=== PATIENT | female | born 1975 | race Caucasian/White ===

== ENCOUNTER 2021-01-17 22:28 | Inpatient (IN) | payer OTHER, MEDICARE, MEDICAID ==
[~2021-01-17] VITALS: Ht 154.9 cm; Wt 97.6 kg
[~2021-01-17 22:28] MED LIST: AMPI3VIA IJ; ASPI81TA50 PO; ATOR10TA60 PO; BACL20TA PO; BISAC-EVAC RC; CALC300T5 PO; DOXE50CA PO; ENOX40DI SQ; ERGO500027 PO; FAMO20TA5 PO; FERR325T14 PO; FLUT1DIS3 IH; FOLI1TAB16 PO; GABA600T7 PO; LEVO75TA5 PO; OXCA300T19 PO; OXYCHLOROSENE; QUET200T4 PO; SENN-87 PO; TERA2CAP3 PO; THIA100V3 IJ; TRAZ-118 PO; ZINC220C4 PO
[2021-01-18] VITALS (11 sets, daily range): BP systolic 93–174; BP diastolic 46–97
--- NOTE | 2021-01-18 00:27 | RAD ---
XR CHEST 1V Clinical History: Reason: altered mental status / Spl. Instructions: / History: Technique: AP view of the chest was obtained at 01/18/2021 12:05 AM. Comparison: None. Findings: The cardiomediastinal silhouette is normal. The pulmonary vasculature is normal. The lungs and pleura l margins are clear. There is right-sided Port-A-Cath is still directed downward in the mid to low SV C. Impression: No evidence of an acute cardiopulmonary process. Electronically signed by: Gee Jimenez III, MD (01/18/2021 12:24 AM) [facility]
[2021-01-18 00:34] LABS: BASO # 0.1 x10^3/uL (0.0-0.2); BASO % 1 % (0-3); BILIRUBIN,URINE NEGATIVE (NEG); CLARITY,URINE CLEAR; COLOR,URINE YELLOW; EOS # 0.2 x10^3/uL (0.0-0.7); EOS % 3 % (0-3); HEMATOCRIT 32.2 % (36.0-47.0); HEMOGLOBIN 10.7 g/dL (12.0-15.5); LYMPH # 2.1 x10^3/uL (1.0-4.8); LYMPH % 24 % (24-48); MEAN CORPUSCULAR HEMOGLOBIN 30 pg (25-35); MEAN CORPUSCULAR HGB CONC 33 g/dL (31-37); MEAN CORPUSCULAR VOLUME 91 fL (79-100); MONO # 0.7 x10^3/uL (0.0-1.1); MONO % 8 % (0-9); NEUT # 5.6 x10^3/uL (1.8-7.7); NEUT % 65 % (31-73); NITRITE,URINE POSITIVE (NEG); PLATELET COUNT 326 x10^3/uL (140-400); PROTEIN,URINE NEGATIVE (NEG-TRACE); RED BLOOD COUNT 3.53 x10^6/uL (3.50-5.40); RED CELL DISTRIBUTION WIDTH 14.3 % (11.5-14.5); UROBILINOGEN,URINE 0.2 mg/dL (0.2 mg/dL); WHITE BLOOD COUNT 8.7 x10^3/uL (4.0-11.0)
[2021-01-18 00:46] LABS: BACTERIA,URINE MANY /HPF (0-FEW)
[2021-01-18 00:50] LABS: CALCIUM 8.7 mg/dL (8.5-10.1); CREATININE 0.6 mg/dL (0.6-1.0); GFR 107.6
[2021-01-18 01:03] LABS: ALBUMIN 3.9 g/dL (3.4-5.0); ALBUMIN/GLOBULIN RATIO 1.3 (1.0-1.7); TOTAL BILIRUBIN 0.3 mg/dL (0.2-1.0)
[2021-01-18] MEDS ORDERED: cefTRIAXone IV Push 1 GM VIAL. IVP ONE (02:00)
[2021-01-18] MEDS ORDERED: ONDANSETRON PF 4 MG/2 ML VIAL. IV PRN (02:15)
--- NOTE | 2021-01-18 03:00 | NUR ---
Received patient from ER per cart to room 203. Admitting diagnosis: AMS and UTI. Patient is a resident at [facility] in [place], [place]. Nursing staff had stated that patient had become confused and was brought to [facility] for assessment and treatment. Patient usually goes to but they were not taking any new patient tonight. Patient is alert but slow to respond. Patient was positive for an UTI. Patient has a cobb catheter in place. Patient has a portacath in her right chest. Patient also has a colostomy in right lower abdomen. Patient has dry scabs on her right great toe and 2 small ulcers on her right buttock. Patient is in no acute distress at this time. Will continue to monitor.
--- NOTE | 2021-01-18 03:43 | PHYS DOC ---
Past Medical History Past Medical History: Anxiety, Asthma, Bipolar, GERD Additional Past Medical Histor: BLADDER DISFUNCTION, LAC OF LIVER, CELLULITIS, PTSD, PARAPLEGIA, Past Surgical History: Other Smoking Status: Never Smoker Alcohol Use: None General Adult EDM: Chief Complaint: ALTERED MENTAL STATUS HPI: HPI: Patient is a 45 year old female brought in by EMS for evaluation due to altered mental status. Per EMS-- patient slow to respond to questions, confusion, and odd behavior. On exam patient vital signs stable. She is alert and knows her name-- she is unable to provide me with her medical history. She is slow to respond to questions and repeats herself. She arrived with IV antibiotic running and she states she is being treated for cellulitis of her right foot. No focal weakness observed. Review of Systems: Review of Systems: limited due to altered mental status Heart Score: C/O Chest Pain: N/A Risk Factors: Risk Factors: DM, Current or recent (<one month) smoker, HTN, HLP, family his tory of CAD, obesity. Risk Scores: Score 0 - 3: 2.5% MACE over next 6 weeks - Discharge Home Score 4 - 6: 20.3% MACE over next 6 weeks - Admit for Clinical Observation Score 7 - 10: 72.7% MACE over next 6 weeks - Early Invasive Strategies Current Medications: Current Medications Medications (Trade) Dose Ordered Sig/Memo Start Time Stop Time Status Last Admin Dose Admin Ceftriaxone Sodium (Rocephin) 1 gm 1X ONCE 01/18/21 02:00 01/18/21 02:01 DC 01/18/21 02:05 1 GM Ondansetron HCl (Zofran) 4 mg PRN Q8HRS PRN 01/18/21 02:15 01/19/21 02:14 Allergies: Allergies: Allergies Coded Allergies Type Severity Reaction Last Updated Verified [id number] Antimigraine Agents Allergy Intermediate 01/18/21 Yes doxycycline Allergy Intermediate Itching 01/18/21 Yes eletriptan Allergy Intermediate Itching 01/18/21 Yes hydromorphone Allergy Intermediate 01/18/21 Yes meperidine Allergy Intermediate Itching 01/18/21 Yes morphine Allergy Intermediate 01/18/21 Yes nalbuphine Allergy Intermediate Itching 01/18/21 Yes rizatriptan Allergy Intermediate 01/18/21 Yes tramadol Allergy Intermediate 01/18/21 Yes Physical Exam: PE: General: alert, no acute distress. Skin: warm, dry and intact. Head:: Normocephalic, atraumatic. Neck: Trachea midline. Eyes: EOMI, Normal conjunctiva, No drainage CARDIOVASCULAR: Regular rate and rhythm RESPIRATORY: No respiratory distress Back: Full range of motion. MUSCULOSKELETAL: Full range of motion of bilateral upper and lower extremities. GASTROINTESTINAL: Abdomen soft without rebound or guarding. NEUROLOGICAL: Alert. No neurological deficits observed, no slurred speech, slow speech, repetitive speech Psychiatric: Cooperative. Normal judgment Current Patient Data: Labs: Laboratory Tests Test 01/18/21 00:10 White Blood Count 8.7 x10^3/uL (4.0-11.0) Red Blood Count 3.53 x10^6/uL (3.50-5.40) Hemoglobin 10.7 g/dL (12.0-15.5) L Hematocrit 32.2 % (36.0-47.0) L Mean Corpuscular Volume 91 fL (79-100) Mean Corpuscular Hemoglobin 30 pg (25-35) Mean Corpuscular Hemoglobin Concent 33 g/dL (31-37) Red Cell Distribution Width 14.3 % (11.5-14.5) Platelet Count 326 x10^3/uL (140-400) Neutrophils (%) (Auto) 65 % (31-73) Lymphocytes (%) (Auto) 24 % (24-48) Monocytes (%) (Auto) 8 % (0-9) Eosinophils (%) (Auto) 3 % (0-3) Basophils (%) (Auto) 1 % (0-3) Neutrophils # (Auto) 5.6 x10^3/uL (1.8-7.7) Lymphocytes # (Auto) 2.1 x10^3/uL (1.0-4.8) Monocytes # (Auto) 0.7 x10^3/uL (0.0-1.1) Eosinophils # (Auto) 0.2 x10^3/uL (0.0-0.7) Basophils # (Auto) 0.1 x10^3/uL (0.0-0.2) Urine Collection Type Unknown Urine Color Yellow Urine Clarity Clear Urine pH 7.0 (<5.0-8.0) Urine Specific [place] 1.010 (1.000-1.030) Urine Protein Negative mg/dL (NEG-TRACE) Urine Glucose (UA) Negative mg/dL (NEG) Urine Ketones (Stick) Negative mg/dL (NEG) Urine Blood Trace (NEG) Urine Nitrite Positive (NEG) Urine Bilirubin Negative (NEG) Urine Urobilinogen Dipstick 0.2 mg/dL (0.2 mg/dL) Urine Leukocyte Esterase Small (NEG) Urine RBC 1-2 /HPF (0-2) Urine WBC 5-10 /HPF (0-4) Urine Squamous Epithelial Cells Few /LPF Urine Bacteria Many /HPF (0-FEW) Urine Mucus Slight /LPF Sodium Level 137 mmol/L (136-145) Potassium Level 4.0 mmol/L (3.5-5.1) Chloride Level 102 mmol/L (98-107) Carbon Dioxide Level 24 mmol/L (21-32) Anion Gap 11 (6-14) Blood Urea Nitrogen 12 mg/dL (7-20) Creatinine 0.6 mg/dL (0.6-1.0) Estimated GFR (Cockcroft-Gault) 107.6 BUN/Creatinine Ratio 20 (6-20) Glucose Level 97 mg/dL (70-99) Lactic Acid Level 0.7 mmol/L (0.4-2.0) Calcium Level 8.7 mg/dL (8.5-10.1) Total Bilirubin 0.3 mg/dL (0.2-1.0) Aspartate Amino Transferase (AST) 24 U/L (15-37) Alanine Aminotransferase (ALT) 27 U/L (14-59) Alkaline Phosphatase 381 U/L (46-116) H Total Protein 7.0 g/dL (6.4-8.2) Albumin 3.9 g/dL (3.4-5.0) Albumin/Globulin Ratio 1.3 (1.0-1.7) Laboratory Tests 01/18/21 00:10 Laboratory Tests 01/18/21 00:10 Vital Signs: Vital Signs Date Time Temp Pulse Resp B/P (MAP) Pulse Ox O2 Delivery O2 Flow Rate FiO2 01/18/21 02:21 68 18 111/55 (73) 94 Room Air 01/17/21 22:30 98.7 98.7 EKG: EKG: [] Radiology/Procedures: Radiology/Procedures: [] Course & Med Decision Making: Course & Med Decision Making Pertinent Labs and Imaging studies reviewed. (See chart for details) [] Patient was evaluated for chief complaint. Work-up consisted of laboratory analysis radiologic imaging. Results reviewed. Patient's urine consistent with urinary tract infection. Treatment included Rocephin Patient was admitted to the hospital for urinary tract infection and altered mental status. Dragon Disclaimer: Dragon Disclaimer: This electronic medical record was generated, in whole or in part, using a voice recognition dictation system. Departure Departure Impression: Primary Impression: Altered mental status Additional Impression: Urinary tract infection Disposition: ADMITTED INPATIENT Condition: STABLE Referrals: AYAD CARDOZO MD (PCP) GEORGIANA RODRIGUEZ DO January 18, 2021 03:43
[2021-01-18] MEDS ORDERED: HYDR453. TP (04:55)
[2021-01-18] MEDS ORDERED: ALBU2.5V8 IH (04:55)
[2021-01-18] MEDS ORDERED: CETI10TA16 PO (04:55)
[2021-01-18] MEDS ORDERED: QUET300T5 PO (04:55)
[2021-01-18] MEDS ORDERED: METO10TA81 PO (04:55)
[2021-01-18] MEDS ORDERED: TOPI25TA52 PO (04:55)
[2021-01-18] MEDS ORDERED: IPRA3AMP29 NEB (04:55)
[2021-01-18] MEDS ORDERED: MORP30TA83 PO (04:55)
[2021-01-18] MEDS ORDERED: NYST15CR TP (04:55)
[2021-01-18] MEDS ORDERED: PANT40TA77 PO (04:55)
[2021-01-18] MEDS ORDERED: ONDA4TAB12 PO (04:55)
[2021-01-18] MEDS ORDERED: LIDODERM 5% TP (04:55)
[2021-01-18] MEDS ORDERED: TIZA4TAB2 PO (04:55)
[2021-01-18] MEDS ORDERED: SUCR1TAB PO (04:55)
[2021-01-18] MEDS ORDERED: OXYC10TA PO (04:55)
[2021-01-18] MEDS ORDERED: PETR113O TP (04:55)
[2021-01-18] MEDS ORDERED: MIDO10TA PO (04:55)
[2021-01-18] MEDS ORDERED: ZINC56CR2 TP (04:55)
[2021-01-18] MEDS ORDERED: LACT1CAP6 PO (04:55)
[2021-01-18] MEDS ORDERED: ACET500T68 PO (04:55)
[2021-01-18] MEDS ORDERED: GABA600T7 PO (04:55)
[2021-01-18] MEDS ORDERED: TRIA15OI TP (04:55)
[2021-01-18] MEDS ORDERED: SUMA100T3 PO (04:55)
[2021-01-18] MEDS ORDERED: MULT-238 PO (04:55)
[2021-01-18] MEDS ORDERED: OXYB5TAB10 PO (04:55)
[2021-01-18] MEDS ORDERED: LEVO75TA5 PO (04:55)
[2021-01-18] MEDS ORDERED: CALC500T31 PO (04:55)
[2021-01-18] MEDS ORDERED: ASCO500C PO (04:55)
[2021-01-18] MEDS ORDERED: DIPH25TA24 PO (04:55)
[2021-01-18] MEDS ORDERED: MIRA25TA PO (04:55)
[2021-01-18] MEDS ORDERED: SERT100T PO (04:55)
--- NOTE | 2021-01-18 10:09 | NUR ---
SW following. Discussed with RN. 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 RN notified. RN obtaining COVID for pt to return. SW will continue to follow.
[2021-01-18] MEDS ORDERED: SULBACTAM IV SCH ×2 (10:45)
[2021-01-18] MEDS ORDERED: HYDROCORTISONE 1% TOPICAL CREAM 30GM TUBE. TP PRN ×2 (10:45)
[2021-01-18] MEDS ORDERED: ALBUTEROL SULFATE 2.5 MG/3 ML NEBU. INH PRN ×2 (10:45)
[2021-01-18] MEDS ORDERED: AMPICILLIN IV SCH ×2 (10:45)
[2021-01-18] MEDS ORDERED: MIDODRINE HCL 10 MG PO PRN (10:45)
[2021-01-18] MEDS ORDERED: ACETAMINOPHEN 500 MG TABLET PO PRN (10:45)
[2021-01-18] MEDS ORDERED: traZODone 50 MG TABLET. PO PRN ×2 (10:45→21:00)
--- NOTE | 2021-01-18 11:22 | HP ---
ADMIT DATE: 01/18/2021 HISTORY OF PRESENT ILLNESS: The patient is a 45-year-old patient, a resident at [facility] in [place] who was noted by the nursing staff there to have altered mental status. The patient has been confused and unable to express herself or complete sentences. This started on 01/16 and therefore, decision was made to transfer her to [facility] Emergency Room where she was extensively evaluated. She was extensively evaluated in the Emergency Room, has had lab work and imaging studies. Her lab work showed that her chemistry was unremarkable. Again, she has a normochromic normocytic anemia. However, white cell count and platelets are within normal range. Urinalysis showed the patient has 5-10 WBCs, urine was yellow, clear with a pH of 7, specific gravity of 1.010. The urine was positive for nitrite. There was a small amount of leukocyte esterase, 0-2 RBCs and many bacteria. Her chest x-ray showed that the cardiomediastinal silhouette is normal. The pulmonary vasculature is normal. The lungs and pleural margins are clear. There is a right-sided Port-A-Cath saline directed downward into the mid to low superior vena cava and the impression is that the patient has no evidence of acute cardiopulmonary process. The patient was admitted, was given 1 gram of IV Rocephin and was admitted with altered mental status, likely due to urinary tract infection. When I saw her, the patient continued to be somewhat confused, although she does open her eyes and answers questions. She does not seem to be herself. PAST MEDICAL HISTORY: Significant for transverse myelitis with complete paraplegia, neurogenic bladder and bowel, she has diverting colostomy and suprapubic catheter. She apparently has gastroesophageal reflux disease without esophagitis, bipolar disorder, anxiety disorder. She has also irritable bowel syndrome without diarrhea, mild cognitive impairment, gait and mobility abnormalities as well as posture abnormalities, chronic pain syndrome, major depressive disorder, posttraumatic stress disorder, borderline personality disorder, migraine headache without status migrainosus. She has reduced mobility, cellulitis of the left foot and enterococcus is the cause of the disease. She also has bronchial asthma, uncomplicated, hypo-osmolality and hyponatremia. She has also morbid obesity. The patient was admitted recently to [facility] for severe hyponatremia with a serum sodium of 114. She also has cellulitis of the left foot for which she was evaluated and apparently was discharged to [facility] on 12 grams of ampicillin daily. PAST SURGICAL HISTORY: Significant for back surgery, colostomy and suprapubic catheter placement. ALLERGIES: SHE IS ALLERGIC TO TRIPTANS, ANTIMIGRAINE AGENTS, DOXYCYCLINE, ELETRIPTAN, HYDROMORPHONE, MEPERIDINE, MORPHINE, NALBUPHINE, RIZATRIPTAN AND TRAMADOL. MEDICATIONS: She is currently on the following medications: She is on ampicillin sodium solution, she takes 12 mg IV for infection of her right foot, continuous infusion, she is on Benadryl tablet 25 mg every 4 hours, calcium carbonate 500 mg every 6 hours, calcium carbonate 500 mg 3 times a day for dyspepsia, Calmoseptine applied topically to the gluteal folds and high thigh topically 4 times a day, cetirizine 10 mg once a day, ergocalciferol 2000 international units once a day, famotidine tablet 20 mg at bedtime, folic acid 1 mg once a day, gabapentin 300 mg 3 times a day. She is on hydrocortisone cream 1% applied to affected areas topically every 6 hours as needed, Imitrex tablets 100 mg given 1 tablet by mouth every 2 hours as needed, not to exceed more than 2 tablets in 24 hours, ipratropium bromide, albuterol sulfate every 6 hours, lactobacillus 1 capsule by mouth one time a day, levothyroxine sodium 37.5 mcg once a day, Lidoderm patch, lidocaine apply to left shoulder once a day on for 12 hours, off for 12 hours, midodrine 10 mg 3 times a day, MS Contin extended release 30 mg twice a day. She is on Myrbetriq extended release 50 mg once a day, nystatin cream 100,000 units per gram applied to the gluteal fold 4 times a day, ondansetron 4 mg every 8 hours, oxybutynin chloride 5 mg by mouth 3 times a day, oxycodone 10 mg every 4 hours, Protonix 40 mg once a day, albuterol sulfate 2 puffs every 4 hours, Reglan 10 mg before meals and bedtime, Senna Plus 1 tablet by mouth every 12 hours, Seroquel 300 mg by mouth at bedtime, sertraline 100 mg by mouth once a day, sucralfate 1 gram by mouth 3 times a day with meals. She is on multivitamin with mineral 1 tablet once a day, tizanidine 4 mg at bedtime for muscle relaxant. Topamax, she takes 50 mg 2 times a day and triamcinolone acetonide cream 0.1% applied topically to the peristomal rash topically twice a day. She is also on Trileptal, oxcarbazepine 2 tablets by mouth 3 times a day, Tylenol Extra Strength 500 mg 2 tablets by mouth every 8 hours, Ventolin inhaler 2 puffs as needed every 6 hours, vitamin A and D applied topically one time a day, vitamin C, ascorbic acid 500 mg once a day, vitamin D2 5000 international unit once a day, zinc oxide 20% apply to affected areas topically one time a day for skin protection. FAMILY HISTORY: Noncontributory. SOCIAL HISTORY: She is currently a resident at [facility] in [place]. She does not smoke, drink alcohol or recreational drugs. PHYSICAL EXAMINATION: GENERAL: On arrival to the emergency room, the patient looked somewhat pale, but no jaundice, cyanosis or thyromegaly. No jugular venous distention, no lower limb edema. VITAL SIGNS: Heart rate was 65, blood pressure is 123/60, temperature 98.7, respiratory rate was 20 and oxygen saturation was 96% on room air. HEAD, EYES, EARS, NOSE, AND THROAT: Normocephalic, atraumatic. NECK: Supple. HEART: Showed normal first and second heart sounds, no gallop, rub or murmur. CHEST: Clear to auscultation, no crepitation or rhonchi. ABDOMEN: Distended, soft with a colostomy in the right upper quadrant. She has a suprapubic catheter in place. Abdomen is distended, but there is no guarding or rigidity. No organomegaly. All hernial orifice intact. Bowel sounds normal. NEUROLOGIC: She is awake, but somewhat confused. All her cranial nerves are intact. She moves upper extremities without difficulty. She has paraplegia with neurogenic bladder and bowel. The old erythema and redness of the right foot has completely subsided. She has some scabs on the dorsum of the right big toe. LABORATORY DATA: Her lab work on arrival showed a white cell count of 8700, hemoglobin 11, hematocrit 32, MCV 91, and platelet count of 326,000. Her chemistry showed a serum sodium 137, potassium 4, chloride 102, bicarbonate 24, anion gap of 11, BUN 12, creatinine 0.6, estimated GFR was 170 mL per minute. Her glucose was 97. Lactic acid was 0.7. Her calcium was 8.7. Total bilirubin, AST, ALT were normal. Alkaline phosphatase was high at 381, total protein 7, albumin was 3.9. Her urinalysis showed the urine was yellow, clear with a pH of 7, specific gravity of 1.010. The urine was negative for protein, glucose, ketones, trace of blood, positive for nitrite, negative for bilirubin. There is small amount of leukocyte esterase, 0-2 RBCs, 5-10 WBCs, very few squamous epithelium, but many bacteria. ASSESSMENT AND PLAN: In summary, this is a 45-year-old patient, a resident at [place] who was admitted with altered mental status. She has history of transverse myelitis with paraplegia and neurogenic bladder and bowel. She was treated recently at [facility] for severe hyponatremia with a serum sodium 114 as well as cellulitis of the right foot. She was discharged to continue on ampicillin 12 grams continuously intravenously. She has a Port-A-Cath. She has multiple other potential cause of her altered mental status including the fact that she is on morphine extended release 30 mg twice a day as well as oxycodone. My plan is to consult the Neurologist as well as the Infectious Disease. We will arrange for her to have a CT scan of her head, get some more information from [facility]. S[address]NCHEZ DR: Jon TID: [id number]
[2021-01-18] MEDS: METOCLOPRAMIDE 10 MG TABLET. PO SCH ×3 (11:30→20:45)
[2021-01-18] MEDS ORDERED: METOCLOPRAMIDE 10 MG TABLET. PO SCH (11:30)
[2021-01-18] MEDS ORDERED: ALBUTEROL SULFATE 2.5 MG/3 ML NEBU. NEB PRN (11:30)
[2021-01-18] MEDS: LEVOTHYROXINE 75 MCG TABLET PO SCH (12:00)
[2021-01-18] MEDS: MIRABEGRON 25 MG TAB.ER.24H PO SCH (12:00)
[2021-01-18] MEDS: FAMOTIDINE 20 MG TABLET. PO SCH ×2 (12:00→20:46)
[2021-01-18] MEDS: FERROUS SULFATE 325 MG TABLET. PO SCH (12:00)
[2021-01-18] MEDS: FOLIC ACID 1 MG TABLET. PO SCH (12:00)
[2021-01-18] MEDS: NYSTATIN 100,000 UNIT/GM TOPICAL CREAM 15GM TUBE. TP SCH ×3 (12:32→21:05)
[2021-01-18] MEDS ORDERED: NYSTATIN 100,000 UNIT/GM TOPICAL CREAM 15GM TUBE. TP SCH (13:00)
[2021-01-18] MEDS ORDERED: SUCRALFATE 1 GM TABLET. PO SCH (14:00)
[2021-01-18] MEDS ORDERED: NON FORMULARY ITEM (Gabapentin 300 MG) PO SCH (14:00)
[2021-01-18] MEDS ORDERED: OXYBUTYNIN CHLORIDE 5 MG TABLET PO SCH (14:00)
[2021-01-18] MEDS ORDERED: CALCIUM CARBONATE 500 MG PO SCH (14:00)
[2021-01-18] MEDS: GABAPENTIN 300 MG CAPSULE. PO SCH ×2 (14:15→20:45)
[2021-01-18] MEDS: OXYBUTYNIN CHLORIDE 5 MG TABLET PO SCH ×2 (14:15→20:46)
[2021-01-18] MEDS: CALCIUM CARBONATE 500 MG TAB.CHEW PO SCH ×2 (14:15→20:45)
--- NOTE | 2021-01-18 14:23 | PDOC2 ---
NEUROLOGY CONSULT Date of Service DOS: DATE: 01/18/21 TIME: 14:05 Reason for Consult Reason for Consult: altered mental status Referring Physician Referring Physician: Dr. Rodrigues Source Source: Caregiver (), Chart review, Patient History of Present Illness History of Present Illness The patient is a 45-year-old right-handed female brought in from [facility] emergency department in [place] with altered mental status. Review of prior records shows that she has had longstanding trouble with speaking. She was admitted to [facility] in 2018 with a few weeks of increasing leg weakness. She was found to have rhabdomyolysis. She was then transferred to . MRI of the brain was normal. MRI of the cervical and thoracic spine showed intramedullary hyperintense cord signal from C7-T2 with mild expansion of the cord from T8-T9. MRI of the lumbar spine showed edema in the posterior paraspinal musculature. Lumbar puncture showed 10 red blood cells, 40 white blood cells, glucose 47, protein 113, oligoclonal bands negative, IgG index 0.66, high, flow cytometry negative, cultures and serologies negative. HIV 1 and 2 were negative. MIRNA was 320, homogenous, speckled pattern, ANCA negative, EMG of left arm and left leg negative. She was treated with Solu-Medrol. Neuromyelitis optica titer was negative. says the patient has been in and out of several nursing homes ever since. She has intermittent confusion related to bipolar disorder. There is also a question of B12 deficiency following gastric bypass surgery. She has not had a recent MRI study, last one done at was 09/18/2018; brain was normal, cervical spine and thoracic spine showed decreased extent and expansile nature of the cord abnormality. PET scan was negative. Her last admission to was just a week and a half ago for hyponatremia, Enterococcus bacteremia, chronic left shoulder pain, and wheezing. 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, paraplegia) GI: GERD, Irritable bowel disease Heme/Onc: B12 deficiency (?) Hepatobiliary: Other (Liver laceration) Psych: Bipolar, Depression, Other (Post traumatic stress disorder, borderline personality disorder) Rheumatologic: Other (Chronic pain syndrome) Renal/: Other (Chronic hyponatremia) Dermatology: Cellulitis Past Surgical History Past Surgical History: Other (Colostomy, suprapubic catheter, gastric bypass, lumbar) Family History Family History: Cancer Social History Social History , no alcohol or tobacco Current Medications Current Medications Current Medications Ceftriaxone Sodium (Rocephin) 1 gm 1X ONCE IVP Last administered on 01/18/21at 02:05; Start 01/18/21 at 02:00; Stop 01/18/21 at 02:01; Status DC Ondansetron HCl (Zofran) 4 mg PRN Q8HRS PRN IV NAUSEA/VOMITING 1ST CHOICE Last administered on 01/18/21at 09:36; Start 01/18/21 at 02:15; Stop 01/19/21 at 02:14 Acetaminophen (Tylenol) 1,000 mg PRN Q8HRS PRN PO pain or fever; Start 01/18/21 at 10:45 Albuterol Sulfate (Ventolin Neb Soln) 8.5 mg Q6H PRN INH wheezing; Start 01/18/21 at 10:45; Status UNV Ampicillin Sodium/ Sulbactam Sodium (Unasyn) 12 gm Q24H IV ; Start 01/18/21 at 10:45; Status UNV Ergocalciferol (Vitamin D2) 50,000 unit WEEKLY PO ; Start 01/25/21 at 09:00 Famotidine (Pepcid) 20 mg BID PO Last administered on 01/18/21at 12:00; Start 01/18/21 at 12:00 Ferrous Sulfate (Feosol) 325 mg DAILY PO Last administered on 01/18/21at 12:00; Start 01/18/21 at 12:00 Folic Acid (Folic Acid) 1 mg DAILY PO Last administered on 01/18/21at 12:00; Start 01/18/21 at 12:00 Hydrocortisone (Cortaid) 1 brigido PRN Q6HRS PRN TP ITCHING; Start 01/18/21 at 10:45 Albuterol Sulfate (Ventolin Neb Soln) 2.5 mg PRN Q6HRS PRN NEB SHORTNESS OF BREATH; Start 01/18/21 at 11:30 Levothyroxine Sodium (Synthroid) 37.5 mcg DAILY06 PO Last administered on 01/18/21at 12:00; Start 01/18/21 at 12:00 Metoclopramide HCl (Reglan) 10 mg QIDACHS PO Last administered on 01/18/21at 11:30; Start 01/18/21 at 11:30 Mirabegron (Myrbetriq) 50 mg DAILY PO Last administered on 01/18/21at 12:00; St art 01/18/21 at 12:00 Nystatin (Mycostatin) 1 brigido QID TP ; Start 01/18/21 at 13:00; Status UNV Oxcarbazepine (Trileptal) 600 mg BID PO ; Start 01/18/21 at 21:00; Status UNV Oxybutynin Chloride (Ditropan) 5 mg TID PO ; Start 01/18/21 at 14:00; Status UNV Pantoprazole Sodium (Protonix) 40 mg BID PO ; Start 01/18/21 at 21:00; Status UNV Sennosides (Senna) 8.6 mg BID PO ; Start 01/18/21 at 21:00; Status UNV Sucralfate (Carafate) 1 gm TID PO ; Start 01/18/21 at 14:00; Status UNV Sumatriptan Succinate (Imitrex) 100 mg DAILY PRN PO MIGRAINE HEADACHE; Start 01/18/21 at 10:45; Status UNV Thiamine HCl (Thiamine Im) 100 mg DAILY08 IM ; Start 01/19/21 at 08:00; Status UNV Topiramate (Topamax) 50 mg BID PO ; Start 01/18/21 at 21:00; Status UNV Trazodone HCl (Desyrel) 25 mg PRN TID PRN PO ; Start 01/18/21 at 10:45; Status UNV Triamcinolone Acetonide (Kenalog 0.1%) 1 brigido BID TP ; Start 01/18/21 at 21:00; Status UNV Ascorbic Acid (Vitamin C) 500 mg BID PO ; Start 01/18/21 at 21:00 Calcium Carbonate/ Glycine (Tums) 500 mg TID PO ; Start 01/18/21 at 14:00 Doxepin HCl (SINEquan) 75 mg HS PO ; Start 01/18/21 at 21:00 Budesonide (Pulmicort) 0.5 mg RTBID NEB ; Start 01/18/21 at 20:00 Gabapentin (Neurontin) 300 mg TID PO ; Start 01/18/21 at 14:00 Lactobacillus Rhamnosus (Culturelle) 1 cap DAILY PO ; Start 01/19/21 at 09:00 Midodrine (Proamatine) 10 mg PRN TID PRN PO hypotension; Start 01/18/21 at 12:15 Multivitamins (Thera M Plus) 1 tab DAILY PO ; Start 01/19/21 at 09:00 Vitamin A/Vitamin D (Vitamin A & D Ointment) 1 brigido BID TP ; Start 01/18/21 at 21:00 Non-Formulary Medication (Quetiapine Fumarate (Seroquel)) 1 tab QHS PO ; Start 01/18/21 at 21:00; Status UNV Non-Formulary Medication (Sertraline Hcl (Zoloft)) 1 tab DAILY PO ; Start 01/19/21 at 09:00; Status UNV Terazosin HCl (Hytrin) 2 mg QHS PO ; Start 01/18/21 at 21:00 Non-Formulary Medication (Zinc Oxide (Desitin)) 1 brigido DAILY TP ; Start 01/19/21 at 09:00; Status UNV Acetaminophen (Tylenol) 1,000 mg PRN Q8HRS PRN PO pain or fever; Start 01/18/21 at 10:45; Stop 01/18/21 at 11:21; Status DC Albuterol Sulfate (Ventolin Neb Soln) 8.5 mg Q6H PRN INH wheezing; Start 01/18/21 at 10:45; Status UNV Ampicillin Sodium/ Sulbactam Sodium (Unasyn) 12 gm Q24H IV ; Start 01/18/21 at 10:45; Status UNV Ergocalciferol (Vitamin D2) 50,000 unit WEEKLY PO ; Start 01/25/21 at 09:00; Stop 01/18/21 at 11:21; Status DC Famotidine (Pepcid) 20 mg BID PO ; Start 01/18/21 at 21:00; Stop 01/18/21 at 11:21; Status DC Ferrous Sulfate (Feosol) 325 mg DAILY PO ; Start 01/19/21 at 09:00; Stop 12/25 02/13 at 11:22; Status DC Folic Acid (Folic Acid) 1 mg DAILY PO ; Start 01/19/21 at 09:00; Stop 01/18/21 at 11:22; Status DC Hydrocortisone (Cortaid) 1 brigido PRN Q6HRS PRN TP ITCHING; Start 01/18/21 at 10:45; Stop 01/18/21 at 11:22; Status DC Albuterol/ Ipratropium (Duoneb) 3 ml RTQID NEB ; Start 01/18/21 at 16:00 Levothyroxine Sodium (Synthroid) 37.5 mcg DAILY PO ; Start 01/19/21 at 09:00; Stop 01/18/21 at 11:23; Status DC Metoclopramide HCl (Reglan) 10 mg QIDACHS PO ; Start 01/18/21 at 11:30; Stop 01/18/21 at 11:24; Status DC Mirabegron (Myrbetriq) 50 mg DAILY PO ; Start 01/19/21 at 09:00; Stop 01/18/21 at 11:24; Status DC Nystatin (Mycostatin) 1 brigido QID TP Last administered on 01/18/21at 12:32; Start 01/18/21 at 13:00 Oxcarbazepine (Trileptal) 600 mg BID PO ; Start 01/18/21 at 21:00 Oxybutynin Chloride (Ditropan) 5 mg TID PO ; Start 01/18/21 at 14:00 Pantoprazole Sodium (Protonix) 40 mg BIDAC PO ; Start 01/18/21 at 16:30 Sennosides (Senna) 8.6 mg BID PO ; Start 01/18/21 at 21:00 Sucralfate (Carafate) 1 gm TIDAC PO ; Start 01/18/21 at 16:30 Sumatriptan Succinate (Imitrex) 100 mg PRN DAILY PRN PO MIGRAINE HEADACHE; Start 01/18/21 at 10:45 Thiamine HCl (Thiamine Im) 100 mg DAILY08 IM ; Start 01/19/21 at 08:00 Topiramate (Topamax) 50 mg BID PO ; Start 01/18/21 at 21:00 Trazodone HCl (Desyrel) 25 mg PRN QHS PRN PO INSOMNIA; Start 01/18/21 at 21:00 Triamcinolone Acetonide (Kenalog 0.1%) 1 brigido BID TP ; Start 01/18/21 at 21:00 Non-Formulary Medication (Ascorbic Acid (Vitamin C)) 500 mg BID PO ; Start 01/18/21 at 21:00; Status UNV Non-Formulary Medication (Calcium Carbonate (Tums)) 500 mg TID PO ; Start 01/18/21 at 14:00; Status UNV Non-Formulary Medication (Doxepin Hcl ) 75 mg HS PO ; Start 01/18/21 at 21:00; Status UNV Non-Formulary Medication (Fluticasone/ Salmeterol (Advair 250-50 Diskus)) 1 puff BID IH ; Start 01/18/21 at 21:00; Status UNV Non-Formulary Medication (Gabapentin ) 300 mg TID PO ; Start 01/18/21 at 14:00; Status UNV Non-Formulary Medication (Lactobacillus Acidophilus (Probiotic)) 1 cap DAILY PO ; Start 01/19/21 at 09:00; Status UNV Non-Formulary Medication (Midodrine Hcl ) 10 mg PRN TID PRN PO hypotension; Start 01/18/21 at 10:45; Status UNV Non-Formulary Medication (Multivit,Ther Iron,Ca,Fa & Min (Thera-M Caplet)) 1 tab DAILY PO ; Start 01/19/21 at 09:00; Status UNV Non-Formulary Medication (Petrolatum,White/ Lanolin (Vitamin A & D Ointment)) 113 gm BID TP ; Start 01/18/21 at 21:00; Status UNV Quetiapine Fumarate (SEROquel XR) 300 mg QHS PO ; Start 01/18/21 at 21:00 Sertraline HCl (Zoloft) 100 mg DAILY PO ; Start 01/19/21 at 09:00 Non-Formulary Medication (Terazosin Hcl ) 1 cap QHS PO ; Start 01/18/21 at 21:00; Status UNV Zinc Oxide (Zinc Oxide 20% Topical) 1 brigido DAILY TP ; Start 01/19/21 at 09:00 Ampicillin Sodium/ Sulbactam Sodium 3 gm/Sodium Chloride 100 ml @ 200 mls/hr Q6HRS IV ; Start 01/18/21 at 18:00 Lactobacillus Rhamnosus (Culturelle) 1 cap BID PO ; Start 01/18/21 at 21:00; Status Cancel Active Scripts Active Reported Desitin (Zinc Oxide) 57 Gm Cream..g. 1 Brigido TP DAILY 5 Days Vitamin C (Ascorbic Acid) 500 Mg Capsule.er 500 Mg PO BID Acetaminophen 500 Mg Tablet 2 Tab PO PRN Q8HRS PRN 15 Days Triamcinolone Acetonide 0.1% Oint (Triamcinolone Acetonide) 15 Gm Oint...g. 1 Brigido TP BID MIX WITH EUCERIN DIRECTED BY PHYSICIAN Topamax (Topiramate) 25 Mg Tablet 2 Tab PO BID 30 Days Tizanidine Hcl 4 Mg Tablet 1 Tab PO QHS Thera-M Caplet (Multivit,Ther Iron,Ca,Fa & Min) 1 Each Tablet 1 Tab PO DAILY 30 Days Sucralfate 1 Gm Tablet 1 Tab PO TID Zoloft (Sertraline Hcl) 100 Mg Tablet 1 Tab PO DAILY Seroquel (Quetiapine Fumarate) 300 Mg Tablet 1 Tab PO QHS Reglan (Metoclopramide Hcl) 10 Mg Tablet 10 Mg PO QIDACHS Proair Hfa Inhaler (Albuterol Sulfate) 8.5 Gm Hfa.aer.ad 2 Puff IH PRN Q4-6HRS PRN 21 Days Pantoprazole Sodium (Pantoprazole Sodium) 40 Mg Tablet.dr 40 Mg PO BID Oxycodone Hcl Immed.release (Oxycodone Hcl) 10 Mg Tablet 10 Mg PO PRN Q4HRS Oxybutynin Chloride 5 Mg Tablet 5 Mg PO TID Ondansetron Odt (Ondansetron) 4 Mg Tab.rapdis 1 Tab PO PRN Q8HRS Nystatin 15 Gm Cream..g. 1 Brigido TP QID Myrbetriq (Mirabegron) 50 Mg Tab.er.24h 50 Mg PO DAILY Ms Contin (Morphine Sulfate) 30 Mg Tablet.er 1 Tab PO TID MDD 3 Tablet(s) 5 Days Midodrine Hcl 10 Mg Tablet 10 Mg PO PRN TID PRN [Lidoderm patch 5%] TP DAILY Levothyroxine Sodium 75 Mcg Tablet 0.5 Tab PO DAILY Probiotic (Lactobacillus Acidophilus) 1 Each Capsule 1 Cap PO DAILY 10 Days Duoneb 0.5-3(2.5) Mg/3 Ml (Albuterol/Ipratropium) 3 Ml Ampul.neb 3 Ml NEB PRN Q6HRS PRN Imitrex (Sumatriptan Succinate) 100 Mg Tablet 100 Mg PO 1-2XD PRN Hydrocortisone 453.6 Gm Cream..g. 1 Brigido TP PRN Q6HRS PRN Gabapentin 600 Mg Tablet 300 Mg PO TID Cetirizine Hcl 10 Mg Tablet 1 Tab PO DAILY Calcium Carbonate 500 Mg Tablet 500 Mg PO PRN Q4HRS PRN Diphenhydramine Hcl 25 Mg Tablet 1 Tab PO PRN Q4HRS PRN 30 Days Vitamin A & D Ointment (Petrolatum,White/Lanolin) 113 Gm Oint...g. 113 Gm TP BID Famotidine 20 Mg Tablet 20 Mg PO BID Terazosin Hcl 2 Mg Capsule 1 Cap PO QHS Trazodone Hcl 50 Mg Tablet 25 Mg PO PRN TID PRN Lovenox (Enoxaparin Sodium) 40 Mg/0.4 Ml Disp.syrin 40 Mg SQ DAILY Zinc-220 (Zinc Sulfate) 220 Mg Capsule 220 Mg PO DAILY Thiamine Hcl 100 Mg/1 Ml Vial 100 Mg IJ DAILY08 Senna Lax (Sennosides) 8.6 Mg Tablet 8.6 Mg PO BID Atorvastatin Calcium 10 Mg Tablet 1 Tab PO DAILY Unasyn 3 Gm Vial (Ampicillin Sodium/Sulbactam Na) 3 Gm Vial 3 Gm IJ Q8HRS Folic Acid 1 Mg Tablet 1 Tab PO DAILY Advair 250-50 Diskus (Fluticasone/Salmeterol) 1 Each Disk.w.dev 1 Puff IH BID Ferrous Sulfate 325 Mg Tablet 1 Tab PO DAILY Tums (Calcium Carbonate) 300 Mg Tab.chew 500 Mg PO TID Baclofen 20 Mg Tablet 20 Mg PO HS Aspir-Low (Aspirin) 81 Mg Tablet.dr 1 Tab PO DAILY Oxcarbazepine 300 Mg Tablet 600 Mg PO BID Doxepin Hcl 50 Mg Capsule 75 Mg PO HS [Bisac-Evac] RC DAILY [Oxychlorosene] BID Vitamin D2 (Ergocalciferol (Vitamin D2)) 50,000 Unit Capsule 1 Cap PO WEEKLY Allergies Allergies: Coded Allergies: [id number] Antimigraine Agents (Verified Allergy, Intermediate, 01/18/21) doxycycline (Verified Allergy, Intermediate, Itching, 01/18/21) eletriptan (Verified Allergy, Intermediate, Itching, 01/18/21) hydromorphone (Verified Allergy, Intermediate, 01/18/21) meperidine (Verified Allergy, Intermediate, Itching, 01/18/21) morphine (Verified Allergy, Intermediate, 01/18/21) nalbuphine (Verified Allergy, Intermediate, Itching, 01/18/21) rizatriptan (Verified Allergy, Intermediate, 01/18/21) tramadol (Verified Allergy, Intermediate, 01/18/21) ROS Review of System Negative for fever, chills, weight loss, shortness of breath, chest pain, indigestion, hematochezia, melena, and dysuria. Full 14-point review of systems is negative. Physical Exam Physical Examination General: Well-developed, well-nourished white female in no acute distress HEENT: Normocephalic andatraumatic. Tympanic membranes clear.Temporal arteriespulsatile and nontender.Fundoscopic exam unremarkable Neck: Supple without bruit, no meningismus Musculoskeletal: Stability:see neurologic. Gait exam:see neurologic. Tone:see neurologic.Strength:see neurologic. Neurological: Mental Status: orientation, memory, attention span/concentration, language, fund of knowledge: Strange hesitancy of speech, cannot tell me her history, but names and repeats well. Keeps apologizing. Cranial Nerves:Pupils equal and reactive to light, extraocular movements areintact, visual almaraz are full to confrontation. Facial sensation is normal. There is no facial asymmetry. Vestibulo-ocular reflex is intact. Palate elevates and tongue protrudes in midline. All other cranial related problems are negative except as mentioned before.Reflexes:1+ and symmetric with flexor plantar responses. Motor: 4/5 arms, 0/5 legs. Coordination:Finger-nose finger normal. Rapid alternating movements and fine finger movements are intact. Gait:Not tested. Sensory:T4 se nsory level. Vitals VITALS Vital Signs Date Time Temp Pulse Resp B/P (MAP) Pulse Ox O2 Delivery O2 Flow Rate FiO2 01/18/21 11:00 61 17 146/65 (92) 94 Room Air 01/18/21 07:00 98.0 98.0 Labs Labs Laboratory Tests Test 01/18/21 00:10 White Blood Count 8.7 x10^3/uL (4.0-11.0) Red Blood Count 3.53 x10^6/uL (3.50-5.40) Hemoglobin 10.7 g/dL (12.0-15.5) Hematocrit 32.2 % (36.0-47.0) Mean Corpuscular Volume 91 fL (79-100) Mean Corpuscular Hemoglobin 30 pg (25-35) Mean Corpuscular Hemoglobin Concent 33 g/dL (31-37) Red Cell Distribution Width 14.3 % (11.5-14.5) Platelet Count 326 x10^3/uL (140-400) Neutrophils (%) (Auto) 65 % (31-73) Lymphocytes (%) (Auto) 24 % (24-48) Monocytes (%) (Auto) 8 % (0-9) Eosinophils (%) (Auto) 3 % (0-3) Basophils (%) (Auto) 1 % (0-3) Neutrophils # (Auto) 5.6 x10^3/uL (1.8-7.7) Lymphocytes # (Auto) 2.1 x10^3/uL (1.0-4.8) Monocytes # (Auto) 0.7 x10^3/uL (0.0-1.1) Eosinophils # (Auto) 0.2 x10^3/uL (0.0-0.7) Basophils # (Auto) 0.1 x10^3/uL (0.0-0.2) Urine Collection Type Unknown Urine Color Yellow Urine Clarity Clear Urine pH 7.0 (<5.0-8.0) Urine Specific Fowler 1.010 (1.000-1.030) Urine Protein Negative mg/dL (NEG-TRACE) Urine Glucose (UA) Negative mg/dL (NEG) Urine Ketones (Stick) Negative mg/dL (NEG) Urine Blood Trace (NEG) Urine Nitrite Positive (NEG) Urine Bilirubin Negative (NEG) Urine Urobilinogen Dipstick 0.2 mg/dL (0.2 mg/dL) Urine Leukocyte Esterase Small (NEG) Urine RBC 1-2 /HPF (0-2) Urine WBC 5-10 /HPF (0-4) Urine Squamous Epithelial Cells Few /LPF Urine Bacteria Many /HPF (0-FEW) Urine Mucus Slight /LPF Sodium Level 137 mmol/L (136-145) Potassium Level 4.0 mmol/L (3.5-5.1) Chloride Level 102 mmol/L (98-107) Carbon Dioxide Level 24 mmol/L (21-32) Anion Gap 11 (6-14) Blood Urea Nitrogen 12 mg/dL (7-20) Creatinine 0.6 mg/dL (0.6-1.0) Estimated GFR (Cockcroft-Gault) 107.6 BUN/Creatinine Ratio 20 (6-20) Glucose Level 97 mg/dL (70-99) Lactic Acid Level 0.7 mmol/L (0.4-2.0) Calcium Level 8.7 mg/dL (8.5-10.1) Total Bilirubin 0.3 mg/dL (0.2-1.0) Aspartate Amino Transf (AST/SGOT) 24 U/L (15-37) Alanine Aminotransferase (ALT/SGPT) 27 U/L (14-59) Alkaline Phosphatase 381 U/L (46-116) Total Protein 7.0 g/dL (6.4-8.2) Albumin 3.9 g/dL (3.4-5.0) Albumin/Globulin Ratio 1.3 (1.0-1.7) Laboratory Tests Test 01/18/21 00:10 White Blood Count 8.7 x10^3/uL (4.0-11.0) Red Blood Count 3.53 x10^6/uL (3.50-5.40) Hemoglobin 10.7 g/dL (12.0-15.5) Hematocrit 32.2 % (36.0-47.0) Mean Corpuscular Volume 91 fL (79-100) Mean Corpuscular Hemoglobin 30 pg (25-35) Mean Corpuscular Hemoglobin Concent 33 g/dL (31-37) Red Cell Distribution Width 14.3 % (11.5-14.5) Platelet Count 326 x10^3/uL (140-400) Neutrophils (%) (Auto) 65 % (31-73) Lymphocytes (%) (Auto) 24 % (24-48) Monocytes (%) (Auto) 8 % (0-9) Eosinophils (%) (Auto) 3 % (0-3) Basophils (%) (Auto) 1 % (0-3) Neutrophils # (Auto) 5.6 x10^3/uL (1.8-7.7) Lymphocytes # (Auto) 2.1 x10^3/uL (1.0-4.8) Monocytes # (Auto) 0.7 x10^3/uL (0.0-1.1) Eosinophils # (Auto) 0.2 x10^3/uL (0.0-0.7) Basophils # (Auto) 0.1 x10^3/uL (0.0-0.2) Urine Collection Type Unknown Urine Color Yellow Urine Clarity Clear Urine pH 7.0 (<5.0-8.0) Urine Specific Fowler 1.010 (1.000-1.030) Urine Protein Negative mg/dL (NEG-TRACE) Urine Glucose (UA) Negative mg/dL (NEG) Urine Ketones (Stick) Negative mg/dL (NEG) Urine Blood Trace (NEG) Urine Nitrite Positive (NEG) Urine Bilirubin Negative (NEG) Urine Urobilinogen Dipstick 0.2 mg/dL (0.2 mg/dL) Urine Leukocyte Esterase Small (NEG) Urine RBC 1-2 /HPF (0-2) Urine WBC 5-10 /HPF (0-4) Urine Squamous Epithelial Cells Few /LPF Urine Bacteria Many /HPF (0-FEW) Urine Mucus Slight /LPF Sodium Level 137 mmol/L (136-145) Potassium Level 4.0 mmol/L (3.5-5.1) Chloride Level 102 mmol/L (98-107) Carbon Dioxide Level 24 mmol/L (21-32) Anion Gap 11 (6-14) Blood Urea Nitrogen 12 mg/dL (7-20) Creatinine 0.6 mg/dL (0.6-1.0) Estimated GFR (Cockcroft-Gault) 107.6 BUN/Creatinine Ratio 20 (6-20) Glucose Level 97 mg/dL (70-99) Lactic Acid Level 0.7 mmol/L (0.4-2.0) Calcium Level 8.7 mg/dL (8.5-10.1) Total Bilirubin 0.3 mg/dL (0.2-1.0) Aspartate Amino Transf (AST/SGOT) 24 U/L (15-37) Alanine Aminotransferase (ALT/SGPT) 27 U/L (14-59) Alkaline Phosphatase 381 U/L (46-116) Total Protein 7.0 g/dL (6.4-8.2) Albumin 3.9 g/dL (3.4-5.0) Albumin/Globulin Ratio 1.3 (1.0-1.7) Assessment/Plan Assessment/Plan Impression: Metabolic encephalopathy, previous hyponatremia has resolved, does have some urinary tract infection, cellulitis, also requires large amounts of narcotics Strange language disorder, 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, leaving her with neurogenic bowel and bladder and paraplegia Prior B12 deficiency has resolved, [facility] B12 level was 583 on 04/23/2020 Recommendations: MRI of the brain with and without contrast to assess for demyelinating disease Continue current treatment of medical diseases Discussed with patient's . Thank you for letting me help with the patient's care. JULIETA BRONSON MD January 18, 2021 14:23
[2021-01-18] MEDS: IPRATRPIUM/ALBUTEROL 0.5/2.5MG 3 ML NEBU. NEB SCH ×2 (16:24→20:39)
[2021-01-18] MEDS: PANTOPRAZOLE 40 MG TABLET.DR. PO SCH (16:31)
[2021-01-18] MEDS: SUCRALFATE 1 GM TABLET. PO SCH (16:31)
--- NOTE | 2021-01-18 17:00 | NUR ---
Wound Care Wound Type/Assessment: Consult to eval and treat wounds present on admission. Pt admits to [facility] for AMS/UTI from [facility] correction. She has a dx of transverse myelitis with an onset of 3 years ago and reports no sensation or voluntary movement from the breast-line down. R great toe scab is dry and unstable, lifting on the edges. Scab removed, new intact skin observed beneath; considered healed. R heel has DTI with purple, nonblanchable coloration and periwound WNL. L heel has STI PU, red, nonblanchable coloration with periwound WNL. Two openings to R ischium (noted as "lower R buttock" in detailed assessment), Proximal wound base is bright red, granular, moist, and with minimal slough. Distal wound base is covered with dry, adherent slough. Scar tissue noted around periwound, with evidence of previous flap surgery and previous pressure injuries of unknown stage. Based on visualized structures, present wounds classified as ST III. Pt has a colostomy that is intact, without any apparent skin breakdown. Suprapubic catheter site is hypergranulated and moist, with MASD to trisha"wound." No other skin breakdown noted on head to toe assessment. Treatment Recommendations/Plan: R lower buttock: Cleanse and dry. Cover wounds with hydrocolloid and foam. Change every 2-3 days. Bilateral heels; Apply skin prep/protectant and cover with foams for protection. Wear heel-medix boots Suprapubic cath site: Cleanse daily and apply stomal powder to redness and hypergranulation Education provided: Educated on use of stoma powder, offloading to prevent further breakdown of skin Offloading surface/device: Ordered P500 bed to promote wound healing. Purple wedge for offloading and heel medix boots to offload heels Recommended Referrals/Tests: NA Discharge Recommendations for dressings: See DC summary
[2021-01-18] MEDS: AMPICILLIN/SULBACTAM 3 GM in IV NORMAL SALINE 100ML 100 ML IV SCH ×2 (18:01→23:27)
[2021-01-18] MEDS: ACETAMINOPHEN 500 MG TABLET PO PRN (18:16)
[2021-01-18] MEDS: BUDESONIDE 0.5 MG/2 ML NEBU. NEB SCH (20:43)
[2021-01-18] MEDS: TERAZOSIN 1 MG CAPSULE. PO SCH (20:44)
[2021-01-18] MEDS: OXcarbazepine 300 MG TABLET PO SCH (20:44)
[2021-01-18] MEDS: QUEtiapine 300 MG TAB.ER.24H. PO SCH (20:45)
[2021-01-18] MEDS: DOXEPIN HCL 25 MG CAPSULE. PO SCH (20:45)
[2021-01-18] MEDS: SENNOSIDES 8.6 MG TABLET PO SCH (20:45)
[2021-01-18] MEDS: ASCORBIC ACID 500 MG TABLET PO SCH (20:45)
[2021-01-18] MEDS: TOPIRAMATE 25 MG TABLET. PO SCH (20:46)
[2021-01-18] MEDS: TRIAMCINOLONE ACETONIDE 0.1% TOPICAL OINTMENT 15GM TUBE. TP SCH (21:00)
[2021-01-18] MEDS ORDERED: NON FORMULARY ITEM (Ascorbic Acid (Vitamin C) 500 MG) PO SCH (21:00)
[2021-01-18] MEDS ORDERED: TOPIRAMATE 25 MG TABLET. PO SCH (21:00)
[2021-01-18] MEDS ORDERED: TERAZOSIN HCL PO SCH (21:00)
[2021-01-18] MEDS ORDERED: PANTOPRAZOLE 40 MG TABLET.DR. PO SCH (21:00)
[2021-01-18] MEDS ORDERED: TRIAMCINOLONE ACETONIDE 0.1% TOPICAL OINTMENT 15GM TUBE. TP SCH (21:00)
[2021-01-18] MEDS ORDERED: LACTOBACILLUS RHAMNOSUS GG 1 CAPSULE. PO SCH (21:00)
[2021-01-18] MEDS ORDERED: PETROLATUM WHITE TP SCH (21:00)
[2021-01-18] MEDS ORDERED: DOXEPIN HCL 75 MG PO SCH (21:00)
[2021-01-18] MEDS ORDERED: SENNOSIDES 8.6 MG TABLET PO SCH (21:00)
[2021-01-18] MEDS ORDERED: FAMOTIDINE 20 MG TABLET. PO SCH (21:00)
[2021-01-18] MEDS ORDERED: NON FORMULARY ITEM (Fluticasone/Salmeterol (Advair 250-50 Diskus) 1 PUFF) IH SCH (21:00)
[2021-01-18] MEDS ORDERED: OXcarbazepine 300 MG TABLET PO SCH (21:00)
[2021-01-18] MEDS ORDERED: NON FORMULARY ITEM (Quetiapine Fumarate (Seroquel) 1 TAB) PO SCH (21:00)
[2021-01-18] MEDS ORDERED: LANOLIN TP SCH (21:00)
[2021-01-18] MEDS: VITS A & D/LANOLIN TOPICAL OINTMENT 42GM TUBE. TP SCH (21:05)
--- NOTE | 2021-01-18 21:35 | NUR ---
Pt. is A&Ox4 and is stating she is not allergic to morphine. Pt.'s home medication of morphine was restarted per .
[2021-01-18] MEDS ORDERED: oxyCODONE IR 5 MG TABLET PO PRN (21:45)
[2021-01-18] MEDS: MORPHINE ER 30 MG TABLET.ER PO SCH (22:00)
[2021-01-18] MEDS ORDERED: IV NORMAL SALINE 1000ML BAG 1,000 ML IV ONE (22:15)
[2021-01-18] MEDS ORDERED: VANCOMYCIN 1 GM in IV NORMAL SALINE 250ML 250 ML IV ONE (22:15)
--- NOTE | 2021-01-18 22:16 | CONS ---
DATE OF CONSULTATION: 01/18/2021 REFERRING PHYSICIAN: Dr. Rodrigues. REASON FOR CONSULTATION: Right foot infection, antibiotic management. 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 The patient was afebrile. White count was 8.7. She also has a foot infection, which has been treated at the residential for a couple of weeks. UA showed pyuria. She was given Rocephin and admitted to the hospital for further evaluation and treatment. The patient denies any fevers, chills, nausea, or vomiting. The patient has a migraine headache. She was on ampicillin 12 g every 24 hours continuous infusion since 01/14/2021 from . I do not have further information on the same. The patient is currently on Unasyn. ID consultation has been requested for antibiotic management. PAST MEDICAL HISTORY: Anxiety, asthma, bipolar disorder, GERD, bladder dysfunction, laceration of the liver, cellulitis, PTSD, and paraplegia. SOCIAL HISTORY: Nonsmoker, no alcohol. custodial resident. ALLERGIES: DOXYCYCLINE, ITCHING; MEPERIDINE; MORPHINE; RIZATRIPTAN; TRAMADOL; DILAUDID; MAXALT; NUBAIN; TRIPTANS AND MIGRAINE AGENTS. REVIEW OF SYSTEMS: Limited, but negative for above. The patient states her right foot wound is improving. PHYSICAL EXAMINATION: GENERAL: Alert, awake female in no acute distress. HEENT: Normocephalic, atraumatic. Anicteric. Oral mucosa moist. NECK: Supple. LUNGS: Clear. HEART: S1, S2. ABDOMEN: Soft, obese. Bowel sounds present. Ostomy in place. Suprapubic catheter site in place. CHEST WALL: Right Port-A-Cath site clean. EXTREMITIES: Right great toe abrasion present with some skin breakdown. No purulence, no fluctuance. Dorsalis pedis palpable. DERMATOLOGIC: No generalized rash. Chronic wounds on the buttock noted, not infected. CENTRAL NERVOUS SYSTEM: Paraplegia. NEUROLOGIC: Alert, awake. Upper extremity strength noted. PSYCHIATRIC: Calm and cooperative. Portacath site clean LABORATORY DATA: [facility] DIAGNOSTIC DATA: Unable to review due to [facility] being down. IMPRESSION: 1. Bacteremia, on ampicillin prior to admission. I do not have details from [facility]. She was on ampicillin 12 gm daily per ID Medication list since 01/12 till admission 2. Urinary tract infection 3. Right foot wound,chronic per pt, improving per patient. 4. 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 5. Anxiety and depression. 6. HISTORY OF ALLERGY TO DOXYCYCLINE WITH ITCHING. 7. Migraine. 8. Gastroesophageal reflux disease. 9. Neurogenic bowel and bladder with ostomy in place and suprapubic catheter. RECOMMENDATIONS: 1. Continue Unasyn for now. F/U BC and UC.. 2. Obtain records from for our review. D/W RN 3. Follow up labs and cultures. 4. Continue wound care as directed. 5. Change SPC if not done already. 6. Continue supportive care. Thank you Dr. Rodrigues for consulting Infectious Disease to participate in this patient's care. If you have any questions, do not hesitate to contact me. DEXTER/NISHANT MCGILL: Olena TID: [id number] [facility]ITALMaura
[2021-01-19] VITALS (23 sets, daily range): BP systolic 71–117; BP diastolic 23–68
[2021-01-19] MEDS: ACETAMINOPHEN 500 MG TABLET PO PRN (03:19)
[2021-01-19 05:18] LABS: BASO % 0 % (0-3); EOS % 0 % (0-3); HEMATOCRIT 32.9 % (36.0-47.0); HEMOGLOBIN 10.9 g/dL (12.0-15.5); LYMPH # 0.6 x10^3/uL (1.0-4.8); LYMPH % 6 % (24-48); MEAN CORPUSCULAR HEMOGLOBIN 30 pg (25-35); MEAN CORPUSCULAR HGB CONC 33 g/dL (31-37); MEAN CORPUSCULAR VOLUME 92 fL (79-100); MONO # 0.4 x10^3/uL (0.0-1.1); MONO % 3 % (0-9); NEUT # 10.4 x10^3/uL (1.8-7.7); NEUT % 91 % (31-73); PLATELET COUNT 282 x10^3/uL (140-400); RED BLOOD COUNT 3.58 x10^6/uL (3.50-5.40); RED CELL DISTRIBUTION WIDTH 14.6 % (11.5-14.5); WHITE BLOOD COUNT 11.5 x10^3/uL (4.0-11.0)
[2021-01-19 05:48] LABS: ALBUMIN 3.7 g/dL (3.4-5.0); ALBUMIN/GLOBULIN RATIO 1.3 (1.0-1.7); CALCIUM 8.5 mg/dL (8.5-10.1); CREATININE 0.6 mg/dL (0.6-1.0); GFR 107.6; TOTAL BILIRUBIN 0.4 mg/dL (0.2-1.0); TOTAL PROTEIN 6.6 g/dL (6.4-8.2)
[2021-01-19] MEDS: AMPICILLIN/SULBACTAM 3 GM in IV NORMAL SALINE 100ML 100 ML IV SCH ×3 (06:19→20:10)
[2021-01-19] MEDS: PANTOPRAZOLE 40 MG TABLET.DR. PO SCH ×2 (06:19→17:21)
[2021-01-19] MEDS: LEVOTHYROXINE 75 MCG TABLET PO SCH (06:19)
[2021-01-19 06:22] LABS: % BANDS 3 % (0-9); % EOS 1 % (0-5); % LYMPHS 6 % (24-48); % MONOS 4 % (0-10); % SEGS 86 % (35-66)
[2021-01-19 06:23] LABS: PLT ESTIMATE ADEQUATE (ADEQUATE); POLYCHROMASIA SLIGHT
[2021-01-19] MEDS: BUDESONIDE 0.5 MG/2 ML NEBU. NEB SCH ×2 (07:40→20:38)
[2021-01-19] MEDS: IPRATRPIUM/ALBUTEROL 0.5/2.5MG 3 ML NEBU. NEB SCH ×4 (07:40→20:38)
[2021-01-19] MEDS ORDERED: THIAMINE IM 200 MG/2 ML VIAL. IM SCH (08:00)
[2021-01-19] MEDS: SENNOSIDES 8.6 MG TABLET PO SCH ×2 (08:28→21:21)
[2021-01-19] MEDS: OXcarbazepine 300 MG TABLET PO SCH ×2 (08:28→21:20)
[2021-01-19] MEDS: CALCIUM CARBONATE 500 MG TAB.CHEW PO SCH ×3 (08:28→21:23)
[2021-01-19] MEDS: FERROUS SULFATE 325 MG TABLET. PO SCH (08:28)
[2021-01-19] MEDS: MORPHINE ER 30 MG TABLET.ER PO SCH ×3 (08:29→21:19)
[2021-01-19] MEDS: TOPIRAMATE 25 MG TABLET. PO SCH ×2 (08:29→21:20)
[2021-01-19] MEDS: MULTIVITAMIN with MINERAL TABLET. PO SCH (08:29)
[2021-01-19] MEDS: METOCLOPRAMIDE 10 MG TABLET. PO SCH ×4 (08:29→21:21)
[2021-01-19] MEDS: SUCRALFATE 1 GM TABLET. PO SCH ×3 (08:29→17:21)
[2021-01-19] MEDS: FAMOTIDINE 20 MG TABLET. PO SCH ×2 (08:29→21:20)
[2021-01-19] MEDS: FOLIC ACID 1 MG TABLET. PO SCH (08:30)
[2021-01-19] MEDS: SERTRALINE 50 MG TABLET. PO SCH (08:30)
[2021-01-19] MEDS: LACTOBACILLUS RHAMNOSUS GG 1 CAPSULE. PO SCH (08:30)
[2021-01-19] MEDS: GABAPENTIN 300 MG CAPSULE. PO SCH ×3 (08:30→21:20)
[2021-01-19] MEDS: MIRABEGRON 25 MG TAB.ER.24H PO SCH (08:30)
[2021-01-19] MEDS: ASCORBIC ACID 500 MG TABLET PO SCH ×2 (08:30→21:20)
[2021-01-19] MEDS: OXYBUTYNIN CHLORIDE 5 MG TABLET PO SCH ×3 (08:30→21:21)
[2021-01-19] MEDS: THIAMINE IM 200 MG/2 ML VIAL. IM SCH (08:35)
[2021-01-19] MEDS: TRIAMCINOLONE ACETONIDE 0.1% TOPICAL OINTMENT 15GM TUBE. TP SCH ×2 (08:38→21:26)
[2021-01-19] MEDS: NYSTATIN 100,000 UNIT/GM TOPICAL CREAM 15GM TUBE. TP SCH ×4 (08:40→21:24)
[2021-01-19] MEDS: VITS A & D/LANOLIN TOPICAL OINTMENT 42GM TUBE. TP SCH ×2 (08:41→21:26)
[2021-01-19] MEDS: ZINC OXIDE 20% TOPICAL OINTMENT 28GM TUBE. TP SCH (08:41)
--- NOTE | 2021-01-19 08:43 | PDOC ---
Infectious Disease Note Subjective: Subjective Patient says she feels a little better today She felt like she was having seizure-like activity affecting the whole body yesterday which is not her usual Spasms that she has from her underlying transverse myelitis This morning she feels tired though much improved No further recurrence I was called last night by RN for hypotension, no fevers I gave fluid bolus and started pt on IV Vanc Lactic acid normal BC remain neg UC pending Vital Signs: Vital Signs Vital Signs Date Time Temp Pulse Resp B/P (MAP) Pulse Ox O2 Delivery O2 Flow Rate FiO2 01/19/21 07:42 97 Room Air 01/19/21 07:00 98.2 116 16 106/60 (75) 98.2 Physical Exam: PHYSICAL EXAM GENERAL: Alert, awake female in no acute distress. HEENT: Normocephalic, atraumatic. Anicteric. Oral mucosa moist. NECK: Supple. LUNGS: Clear. HEART: S1, S2. ABDOMEN: Soft, obese. Bowel sounds present. Ostomy in place. Suprapubic catheter site in place. CHEST WALL: Right Port-A-Cath site clean. EXTREMITIES: Right great toe abrasion present with some skin breakdown. No purulence, no fluctuance. Dorsalis pedis palpable. DERMATOLOGIC: No generalized rash. Chronic wounds on the buttock noted, not infected. CENTRAL NERVOUS SYSTEM: Paraplegia. NEUROLOGIC: Alert, awake. Upper extremity strength noted. PSYCHIATRIC: Calm and cooperative. Portacath site clean Medications: Inpatient Meds: Medications reviewed. Labs: Lab Laboratory Tests Test 01/19/21 04:35 White Blood Count 11.5 x10^3/uL (4.0-11.0) Red Blood Count 3.58 x10^6/uL (3.50-5.40) Hemoglobin 10.9 g/dL (12.0-15.5) Hematocrit 32.9 % (36.0-47.0) Mean Corpuscular Volume 92 fL (79-100) Mean Corpuscular Hemoglobin 30 pg (25-35) Mean Corpuscular Hemoglobin Concent 33 g/dL (31-37) Red Cell Distribution Width 14.6 % (11.5-14.5) Platelet Count 282 x10^3/uL (140-400) Neutrophils (%) (Auto) 91 % (31-73) Lymphocytes (%) (Auto) 6 % (24-48) Monocytes (%) (Auto) 3 % (0-9) Eosinophils (%) (Auto) 0 % (0-3) Basophils (%) (Auto) 0 % (0-3) Neutrophils # (Auto) 10.4 x10^3/uL (1.8-7.7) Lymphocytes # (Auto) 0.6 x10^3/uL (1.0-4.8) Monocytes # (Auto) 0.4 x10^3/uL (0.0-1.1) Eosinophils # (Auto) 0.0 x10^3/uL (0.0-0.7) Basophils # (Auto) 0.0 x10^3/uL (0.0-0.2) Segmented Neutrophils % 86 % (35-66) Band Neutrophils % 3 % (0-9) Lymphocytes % 6 % (24-48) Monocytes % 4 % (0-10) Eosinophils % 1 % (0-5) Platelet Estimate Adequate (ADEQUATE) Polychromasia Slight Sodium Level 141 mmol/L (136-145) Potassium Level 3.0 mmol/L (3.5-5.1) Chloride Level 106 mmol/L (98-107) Carbon Dioxide Level 20 mmol/L (21-32) Anion Gap 15 (6-14) Blood Urea Nitrogen 6 mg/dL (7-20) Creatinine 0.6 mg/dL (0.6-1.0) Estimated GFR (Cockcroft-Gault) 107.6 BUN/Creatinine Ratio 10 (6-20) Glucose Level 116 mg/dL (70-99) Calcium Level 8.5 mg/dL (8.5-10.1) Total Bilirubin 0.4 mg/dL (0.2-1.0) Aspartate Amino Transf (AST/SGOT) 16 U/L (15-37) Alanine Aminotransferase (ALT/SGPT) 21 U/L (14-59) Alkaline Phosphatase 344 U/L (46-116) Total Protein 6.6 g/dL (6.4-8.2) Albumin 3.7 g/dL (3.4-5.0) Albumin/Globulin Ratio 1.3 (1.0-1.7) Objective: Assessment: 1. History of Bacteremia, on ampicillin prior to admission. I do not have details from [facility]. She was on ampicillin 12 gm daily per [place] Medication list since 01/12 till admission 2. Urinary tract infection 3. Right foot wound,chronic, status post debridement at recent admission at , improving per patient. 4. 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 5. Anxiety and depression. 6. HISTORY OF ALLERGY TO DOXYCYCLINE WITH ITCHING. 7. Migraine. Encephalopathy ,improved, ct head neg,likely metabolic, my brain pending 8. Gastroesophageal reflux disease. 9. Neurogenic bowel and bladder with ostomy in place and suprapubic catheter. Plan: Plan of Care 1. Continue Unasyn and IV Vanc for now. Vanco per pharmacy protocol F/U BC and UC.. Monitor renal functions closely 2. Obtain records from for our review. D/W RN 3. Follow up labs and cultures. 4. Continue wound care as directed. 5. Change SPC if not done already. 6. Continue supportive care. 7. Follow-up MRI of brain, neurology following Discussed with nursing staff RITA AVILA MD January 19, 2021 08:43
[2021-01-19] MEDS ORDERED: MIRABEGRON 25 MG TAB.ER.24H PO SCH (09:00)
[2021-01-19] MEDS ORDERED: FOLIC ACID 1 MG TABLET. PO SCH (09:00)
[2021-01-19] MEDS ORDERED: MULTIVIT THER IRON CA FA PO SCH (09:00)
[2021-01-19] MEDS ORDERED: LEVOTHYROXINE 75 MCG TABLET PO SCH (09:00)
[2021-01-19] MEDS ORDERED: FERROUS SULFATE 325 MG TABLET. PO SCH (09:00)
[2021-01-19] MEDS ORDERED: SERTRALINE HCL PO SCH (09:00)
[2021-01-19] MEDS ORDERED: NON FORMULARY ITEM (Lactobacillus Acidophilus (Probiotic) 1 CAP) PO SCH (09:00)
[2021-01-19] MEDS ORDERED: [UNRECOGNIZED DRUG - OTHER] PO SCH (09:00)
[2021-01-19] MEDS ORDERED: ZINC OXIDE TP SCH (09:00)
[2021-01-19] MEDS ORDERED: IV RINGERS,LACTATED 1000ML 1,000 ML IV SCH (09:30)
[2021-01-19] MEDS ORDERED: LIDOCAINE 2% PF 5 ML VIAL. ONE (10:33)
[2021-01-19] MEDS ORDERED: PROPOFOL 10 MG/ML (20ML) VIAL. IV ONE ×2 (10:33→12:19)
[2021-01-19] MEDS ORDERED: MIDAZOLAM HCL/PF 2 MG/2 ML VIAL. ONE ×2 (10:34→12:18)
[2021-01-19] MEDS ORDERED: KETAMINE HCL IN NACL, ISO-OSM 50 MG/5 ML SYRINGE ONE (10:34)
[2021-01-19] MEDS ORDERED: GADOTERATE 7.5 MMOL/15ML VIAL. IVP ONE (11:45)
--- NOTE | 2021-01-19 12:08 | PDOC ---
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 She requests full anesthesia sedation because of intense claustrophobia Continue current treatment of medical diseases Subjective Feels more alert Objective Vital Signs Date Time Temp Pulse Resp B/P (MAP) Pulse Ox O2 Delivery O2 Flow Rate FiO2 01/19/21 11:11 97 Room Air 01/19/21 11:00 97.8 101 18 112/68 (83) 97.8 Intake and Output 01/19/21 06:59 Intake Total 1040 ml Output Total 2450 ml Balance -1410 ml Intake Oral 1040 ml Output Urine Total 2450 ml # Bowel Movements 1 PHYSICAL EXAM Alert. Oriented to time, place and person. Speech is better PERRL. EOMI. CN: no focal findings. Muscle tone: normal. Muscle strength: 4/5 arms, 0/5 legs DTR: 1+ Plantar reflex: Not applicable Gait: not examined in bed. Sensory exam: T4 sensory level No cerebellar signs elicited. Review of Relevant I have reviewed the following items therese (where applicable) has been applied. Labs Laboratory Tests Test 01/18/21 00:10 01/19/21 04:35 01/19/21 08:42 01/19/21 09:20 White Blood Count 8.7 x10^3/uL (4.0-11.0) 11.5 x10^3/uL (4.0-11.0) Red Blood Count 3.53 x10^6/uL (3.50-5.40) 3.58 x10^6/uL (3.50-5.40) Hemoglobin 10.7 g/dL (12.0-15.5) 10.9 g/dL (12.0-15.5) Hematocrit 32.2 % (36.0-47.0) 32.9 % (36.0-47.0) Mean Corpuscular Volume 91 fL (79-100) 92 fL (79-100) Mean Corpuscular Hemoglobin 30 pg (25-35) 30 pg (25-35) Mean Corpuscular Hemoglobin Concent 33 g/dL (31-37) 33 g/dL (31-37) Red Cell Distribution Width 14.3 % (11.5-14.5) 14.6 % (11.5-14.5) Platelet Count 326 x10^3/uL (140-400) 282 x10^3/uL (140-400) Neutrophils (%) (Auto) 65 % (31-73) 91 % (31-73) Lymphocytes (%) (Auto) 24 % (24-48) 6 % (24-48) Monocytes (%) (Auto) 8 % (0-9) 3 % (0-9) Eosinophils (%) (Auto) 3 % (0-3) 0 % (0-3) Basophils (%) (Auto) 1 % (0-3) 0 % (0-3) Neutrophils # (Auto) 5.6 x10^3/uL (1.8-7.7) 10.4 x10^3/uL (1.8-7.7) Lymphocytes # (Auto) 2.1 x10^3/uL (1.0-4.8) 0.6 x10^3/uL (1.0-4.8) Monocytes # (Auto) 0.7 x10^3/uL (0.0-1.1) 0.4 x10^3/uL (0.0-1.1) Eosinophils # (Auto) 0.2 x10^3/uL (0.0-0.7) 0.0 x10^3/uL (0.0-0.7) Basophils # (Auto) 0.1 x10^3/uL (0.0-0.2) 0.0 x10^3/uL (0.0-0.2) Urine Collection Type Unknown Urine Color Yellow Urine Clarity Clear Urine pH 7.0 (<5.0-8.0) Urine Specific [place] 1.010 (1.000-1.030) Urine Protein Negative mg/dL (NEG-TRACE) Urine Glucose (UA) Negative mg/dL (NEG) Urine Ketones (Stick) Negative mg/dL (NEG) Urine Blood Trace (NEG) Urine Nitrite Positive (NEG) Urine Bilirubin Negative (NEG) Urine Urobilinogen Dipstick 0.2 mg/dL (0.2 mg/dL) Urine Leukocyte Esterase Small (NEG) Urine RBC 1-2 /HPF (0-2) Urine WBC 5-10 /HPF (0-4) Urine Squamous Epithelial Cells Few /LPF Urine Bacteria Many /HPF (0-FEW) Urine Mucus Slight /LPF Sodium Level 137 mmol/L (136-145) 141 mmol/L (136-145) Potassium Level 4.0 mmol/L (3.5-5.1) 3.0 mmol/L (3.5-5.1) Chloride Level 102 mmol/L (98-107) 106 mmol/L (98-107) Carbon Dioxide Level 24 mmol/L (21-32) 20 mmol/L (21-32) Anion Gap 11 (6-14) 15 (6-14) Blood Urea Nitrogen 12 mg/dL (7-20) 6 mg/dL (7-20) Creatinine 0.6 mg/dL (0.6-1.0) 0.6 mg/dL (0.6-1.0) Estimated GFR (Cockcroft-Gault) 107.6 107.6 BUN/Creatinine Ratio 20 (6-20) 10 (6-20) Glucose Level 97 mg/dL (70-99) 116 mg/dL (70-99) Lactic Acid Level 0.7 mmol/L (0.4-2.0) 0.6 mmol/L (0.4-2.0) Calcium Level 8.7 mg/dL (8.5-10.1) 8.5 mg/dL (8.5-10.1) Total Bilirubin 0.3 mg/dL (0.2-1.0) 0.4 mg/dL (0.2-1.0) Aspartate Amino Transf (AST/SGOT) 24 U/L (15-37) 16 U/L (15-37) Alanine Aminotransferase (ALT/SGPT) 27 U/L (14-59) 21 U/L (14-59) Alkaline Phosphatase 381 U/L (46-116) 344 U/L (46-116) Total Protein 7.0 g/dL (6.4-8.2) 6.6 g/dL (6.4-8.2) Albumin 3.9 g/dL (3.4-5.0) 3.7 g/dL (3.4-5.0) Albumin/Globulin Ratio 1.3 (1.0-1.7) 1.3 (1.0-1.7) Segmented Neutrophils % 86 % (35-66) Band Neutrophils % 3 % (0-9) Lymphocytes % 6 % (24-48) Monocytes % 4 % (0-10) Eosinophils % 1 % (0-5) Platelet Estimate Adequate (ADEQUATE) Polychromasia Slight SARS-CoV-2 Antigen (Rapid) Negative (NEGATIVE) Laboratory Tests Test 01/19/21 04:35 01/19/21 08:42 01/19/21 09:20 White Blood Count 11.5 x10^3/uL (4.0-11.0) Red Blood Count 3.58 x10^6/uL (3.50-5.40) Hemoglobin 10.9 g/dL (12.0-15.5) Hematocrit 32.9 % (36.0-47.0) Mean Corpuscular Volume 92 fL (79-100) Mean Corpuscular Hemoglobin 30 pg (25-35) Mean Corpuscular Hemoglobin Concent 33 g/dL (31-37) Red Cell Distribution Width 14.6 % (11.5-14.5) Platelet Count 282 x10^3/uL (140-400) Neutrophils (%) (Auto) 91 % (31-73) Lymphocytes (%) (Auto) 6 % (24-48) Monocytes (%) (Auto) 3 % (0-9) Eosinophils (%) (Auto) 0 % (0-3) Basophils (%) (Auto) 0 % (0-3) Neutrophils # (Auto) 10.4 x10^3/uL (1.8-7.7) Lymphocytes # (Auto) 0.6 x10^3/uL (1.0-4.8) Monocytes # (Auto) 0.4 x10^3/uL (0.0-1.1) Eosinophils # (Auto) 0.0 x10^3/uL (0.0-0.7) Basophils # (Auto) 0.0 x10^3/uL (0.0-0.2) Segmented Neutrophils % 86 % (35-66) Band Neutrophils % 3 % (0-9) Lymphocytes % 6 % (24-48) Monocytes % 4 % (0-10) Eosinophils % 1 % (0-5) Platelet Estimate Adequate (ADEQUATE) Polychromasia Slight Sodium Level 141 mmol/L (136-145) Potassium Level 3.0 mmol/L (3.5-5.1) Chloride Level 106 mmol/L (98-107) Carbon Dioxide Level 20 mmol/L (21-32) Anion Gap 15 (6-14) Blood Urea Nitrogen 6 mg/dL (7-20) Creatinine 0.6 mg/dL (0.6-1.0) Estimated GFR (Cockcroft-Gault) 107.6 BUN/Creatinine Ratio 10 (6-20) Glucose Level 116 mg/dL (70-99) Calcium Level 8.5 mg/dL (8.5-10.1) Total Bilirubin 0.4 mg/dL (0.2-1.0) Aspartate Amino Transf (AST/SGOT) 16 U/L (15-37) Alanine Aminotransferase (ALT/SGPT) 21 U/L (14-59) Alkaline Phosphatase 344 U/L (46-116) Total Protein 6.6 g/dL (6.4-8.2) Albumin 3.7 g/dL (3.4-5.0) Albumin/Globulin Ratio 1.3 (1.0-1.7) Lactic Acid Level 0.6 mmol/L (0.4-2.0) SARS-CoV-2 Antigen (Rapid) Negative (NEGATIVE) Microbiology 01/18/21 Blood Culture - Preliminary, Resulted NO GROWTH AFTER 1 DAY Medications Current Medications Ceftriaxone Sodium (Rocephin) 1 gm 1X ONCE IVP Last administered on 01/18/21at 02:05; Start 01/18/21 at 02:00; Stop 01/18/21 at 02:01; Status DC Ondansetron HCl (Zofran) 4 mg PRN Q8HRS PRN IV NAUSEA/VOMITING 1ST CHOICE Last administered on 01/18/21at 09:36; Start 01/18/21 at 02:15; Stop 01/19/21 at 02:14; Status DC Acetaminophen (Tylenol) 1,000 mg PRN Q8HRS PRN PO pain or fever Last administered on 01/19/21at 03:19; Start 01/18/21 at 10:45 Albuterol Sulfate (Ventolin Neb Soln) 8.5 mg Q6H PRN INH wheezing; Start 01/18/21 at 10:45; Status UNV Ampicillin Sodium/ Sulbactam Sodium (Unasyn) 12 gm Q24H IV ; Start 01/18/21 at 10:45; Status UNV Ergocalciferol (Vitamin D2) 50,000 unit WEEKLY PO ; Start 01/25/21 at 09:00 Famotidine (Pepcid) 20 mg BID PO Last administered on 01/19/21at 08:29; Start 01/18/21 at 12:00 Ferrous Sulfate (Feosol) 325 mg DAILY PO Last administered on 01/19/21at 08:28; Start 01/18/21 at 12:00 Folic Acid (Folic Acid) 1 mg DAILY PO Last administered on 01/19/21at 08:30; Start 01/18/21 at 12:00 Hydrocortisone (Cortaid) 1 brigido PRN Q6HRS PRN TP ITCHING; Start 01/18/21 at 10:45 Albuterol Sulfate (Ventolin Neb Soln) 2.5 mg PRN Q6HRS PRN NEB SHORTNESS OF BREATH; Start 01/18/21 at 11:30 Levothyroxine Sodium (Synthroid) 37.5 mcg DAILY06 PO Last administered on 01/19/21at 06:19; Start 01/18/21 at 12:00 Metoclopramide HCl (Reglan) 10 mg QIDACHS PO Last administered on 01/19/21at 08:29; Start 01/18/21 at 11:30 Mirabegron (Myrbetriq) 50 mg DAILY PO Last administered on 01/19/21at 08:30; Start 01/18/21 at 12:00 Nystatin (Mycostatin) 1 brigido QID TP ; Start 01/18/21 at 13:00; Status UNV Oxcarbazepine (Trileptal) 600 mg BID PO ; Start 01/18/21 at 21:00; Status UNV Oxybutynin Chloride (Ditropan) 5 mg TID PO ; Start 01/18/21 at 14:00; Status UNV Pantoprazole Sodium (Protonix) 40 mg BID PO ; Start 01/18/21 at 21:00; Status UNV Sennosides (Senna) 8.6 mg BID PO ; Start 01/18/21 at 21:00; Status UNV Sucralfate (Carafate) 1 gm TID PO ; Start 01/18/21 at 14:00; Status UNV Sumatriptan Succinate (Imitrex) 100 mg DAILY PRN PO MIGRAINE HEADACHE; Start 01/18/21 at 10:45; Status UNV Thiamine HCl (Thiamine Im) 100 mg DAILY08 IM ; Start 01/19/21 at 08:00; Status UNV Topiramate (Topamax) 50 mg BID PO ; Start 01/18/21 at 21:00; Status UNV Trazodone HCl (Desyrel) 25 mg PRN TID PRN PO ; Start 01/18/21 at 10:45; Status UNV Triamcinolone Acetonide (Kenalog 0.1%) 1 brigido BID TP ; Start 01/18/21 at 21:00; Status UNV Ascorbic Acid (Vitamin C) 500 mg BID PO Last administered on 01/19/21at 08:30; Start 01/18/21 at 21:00 Calcium Carbonate/ Glycine (Tums) 500 mg TID PO Last administered on 01/19/21at 08:28; Start 01/18/21 at 14:00 Doxepin HCl (SINEquan) 75 mg HS PO Last administered on 01/18/21at 20:45; Start 01/18/21 at 21:00 Budesonide (Pulmicort) 0.5 mg RTBID NEB Last administered on 01/19/21at 07:40; Start 01/18/21 at 20:00 Gabapentin (Neurontin) 300 mg TID PO Last administered on 01/19/21at 08:30; Start 01/18/21 at 14:00 Lactobacillus Rhamnosus (Culturelle) 1 cap DAILY PO Last administered on 01/19/21at 08:30; Start 01/19/21 at 09:00 Midodrine (Proamatine) 10 mg PRN TID PRN PO hypotension; Start 01/18/21 at 12:15 Multivitamins (Thera M Plus) 1 tab DAILY PO Last administered on 01/19/21at 08:29; Start 01/19/21 at 09:00 Vitamin A/Vitamin D (Vitamin A & D Ointment) 1 brigido BID TP Last administered on 01/19/21at 08:41; Start 01/18/21 at 21:00 Non-Formulary Medication (Quetiapine Fumarate (Seroquel)) 1 tab QHS PO ; Start 01/18/21 at 21:00; Status UNV Non-Formulary Medication (Sertraline Hcl (Zoloft)) 1 tab DAILY PO ; Start 01/19/21 at 09:00; Status UNV Terazosin HCl (Hytrin) 2 mg QHS PO Last administered on 01/18/21at 20:44; Start 01/18/21 at 21:00 Non-Formulary Medication (Zinc Oxide (Desitin)) 1 brigido DAILY TP ; Start 01/19/21 at 09:00; Status UNV Acetaminophen (Tylenol) 1,000 mg PRN Q8HRS PRN PO pain or fever; Start 01/18/21 at 10:45; Stop 01/18/21 at 11:21; Status DC Albuterol Sulfate (Ventolin Neb Soln) 8.5 mg Q6H PRN INH wheezing; Start 01/18/21 at 10:45; Status UNV Ampicillin Sodium/ Sulbactam Sodium (Unasyn) 12 gm Q24H IV ; Start 01/18/21 at 10:45; Status UNV Ergocalciferol (Vitamin D2) 50,000 unit WEEKLY PO ; Start 01/25/21 at 09:00; Stop 01/18/21 at 11:21; Status DC Famotidine (Pepcid) 20 mg BID PO ; Start 01/18/21 at 21:00; Stop 01/18/21 at 11:21; Status DC Ferrous Sulfate (Feosol) 325 mg DAILY PO ; Start 01/19/21 at 09:00; Stop 01/18 at 11:22; Status DC Folic Acid (Folic Acid) 1 mg DAILY PO ; Start 01/19/21 at 09:00; Stop 01/18/21 at 11:22; Status DC Hydrocortisone (Cortaid) 1 brigido PRN Q6HRS PRN TP ITCHING; Start 01/18/21 at 10:45; Stop 01/18/21 at 11:22; Status DC Albuterol/ Ipratropium (Duoneb) 3 ml RTQID NEB Last administered on 01/19/21at 11:09; Start 01/18/21 at 16:00 Levothyroxine Sodium (Synthroid) 37.5 mcg DAILY PO ; Start 01/19/21 at 09:00; Stop 01/18/21 at 11:23; Status DC Metoclopramide HCl (Reglan) 10 mg QIDACHS PO ; Start 01/18/21 at 11:30; Stop 01/18/21 at 11:24; Status DC Mirabegron (Myrbetriq) 50 mg DAILY PO ; Start 01/19/21 at 09:00; Stop 01/18/21 at 11:24; Status DC Nystatin (Mycostatin) 1 brigido QID TP Last administered on 01/19/21at 08:40; Start 01/18/21 at 13:00 Oxcarbazepine (Trileptal) 600 mg BID PO Last administered on 01/19/21at 08:28; Start 01/18/21 at 21:00 Oxybutynin Chloride (Ditropan) 5 mg TID PO Last administered on 01/19/21at 08:30; Start 01/18/21 at 14:00 Pantoprazole Sodium (Protonix) 40 mg BIDAC PO Last administered on 01/19/21at 06:19; Start 01/18/21 at 16:30 Sennosides (Senna) 8.6 mg BID PO Last administered on 01/19/21at 08:28; Start 01/18/21 at 21:00 Sucralfate (Carafate) 1 gm TIDAC PO Last administered on 01/19/21at 08:29; Start 01/18/21 at 16:30 Sumatriptan Succinate (Imitrex) 100 mg PRN DAILY PRN PO MIGRAINE HEADACHE; Start 01/18/21 at 10:45 Thiamine HCl (Thiamine Im) 100 mg DAILY08 IM Last administered on 01/19/21at 08:35; Start 01/19/21 at 08:00 Topiramate (Topamax) 50 mg BID PO Last administered on 01/19/21at 08:29; Start 01/18/21 at 21:00 Trazodone HCl (Desyrel) 25 mg PRN QHS PRN PO INSOMNIA; Start 01/18/21 at 21:00 Triamcinolone Acetonide (Kenalog 0.1%) 1 brigido BID TP Last administered on 01/19/21at 08:38; Start 01/18/21 at 21:00 Non-Formulary Medication (Ascorbic Acid (Vitamin C)) 500 mg BID PO ; Start 01/18/21 at 21:00; Status UNV Non-Formulary Medication (Calcium Carbonate (Tums)) 500 mg TID PO ; Start 01/18/21 at 14:00; Status UNV Non-Formulary Medication (Doxepin Hcl ) 75 mg HS PO ; Start 01/18/21 at 21:00; Status UNV Non-Formulary Medication (Fluticasone/ Salmeterol (Advair 250-50 Diskus)) 1 puff BID IH ; Start 01/18/21 at 21:00; Status UNV Non-Formulary Medication (Gabapentin ) 300 mg TID PO ; Start 01/18/21 at 14:00; Status UNV Non-Formulary Medication (Lactobacillus Acidophilus (Probiotic)) 1 cap DAILY PO ; Start 01/19/21 at 09:00; Status UNV Non-Formulary Medication (Midodrine Hcl ) 10 mg PRN TID PRN PO hypotension; Start 01/18/21 at 10:45; Status UNV Non-Formulary Medication (Multivit,Ther Iron,Ca,Fa & Min (Thera-M Caplet)) 1 tab DAILY PO ; Start 01/19/21 at 09:00; Status UNV Non-Formulary Medication (Petrolatum,White/ Lanolin (Vitamin A & D Ointment)) 113 gm BID TP ; Start 01/18/21 at 21:00; Status UNV Quetiapine Fumarate (SEROquel XR) 300 mg QHS PO Last administered on 01/18/21at 20:45; Start 01/18/21 at 21:00 Sertraline HCl (Zoloft) 100 mg DAILY PO Last administered on 01/19/21at 08:30; Start 01/19/21 at 09:00 Non-Formulary Medication (Terazosin Hcl ) 1 cap QHS PO ; Start 01/18/21 at 21:00; Status UNV Zinc Oxide (Zinc Oxide 20% Topical) 1 brigido DAILY TP Last administered on 01/19/21at 08:41; Start 01/19/21 at 09:00 Ampicillin Sodium/ Sulbactam Sodium 3 gm/Sodium Chloride 100 ml @ 200 mls/hr Q6HRS IV Last administered on 01/19/21at 11:48; Start 01/18/21 at 18:00 Lactobacillus Rhamnosus (Culturelle) 1 cap BID PO ; Start 01/18/21 at 21:00; Status Cancel Morphine Sulfate (Ms Contin) 30 mg TID PO Last administered on 01/19/21at 08:29; Start 01/18/21 at 22:00 Oxycodone HCl (Roxicodone) 10 mg PRN Q4HRS PRN PO PAIN; Start 01/18/21 at 21:45 Sodium Chloride 1,000 ml @ 1,000 mls/hr 1X ONCE IV Last administered on 01/18/21at 22:25; Start 01/18/21 at 22:15; Stop 01/18/21 at 23:14; Status DC Vancomycin HCl 1 gm/Sodium Chloride 250 ml @ 250 mls/hr ONCE ONCE IV Last administered on 01/19/21at 00:09; Start 01/18/21 at 22:15; Stop 01/18/21 at 23:14; Status DC Ringer's Solution 1,000 ml @ 50 mls/hr Q20H IV ; Start 01/19/21 at 09:30; Stop 01/19/21 at 21:29 Potassium Chloride/Sodium Chloride 1,000 ml @ 100 mls/hr Q10H IV ; Start 01/19/21 at 10:15 Gadoterate Meglumine (Clariscan) 18.8 ml 1X ONCE IVP ; Start 01/19/21 at 11:45; Stop 01/19/21 at 11:46; Status DC Active Scripts Active Reported Desitin (Zinc Oxide) 57 Gm Cream..g. 1 Brigido TP DAILY 5 Days Vitamin C (Ascorbic Acid) 500 Mg Capsule.er 500 Mg PO BID Acetaminophen 500 Mg Tablet 2 Tab PO PRN Q8HRS PRN 15 Days Triamcinolone Acetonide 0.1% Oint (Triamcinolone Acetonide) 15 Gm Oint...g. 1 Brigido TP BID MIX WITH EUCERIN DIRECTED BY PHYSICIAN Topamax (Topiramate) 25 Mg Tablet 2 Tab PO BID 30 Days Tizanidine Hcl 4 Mg Tablet 1 Tab PO QHS Thera-M Caplet (Multivit,Ther Iron,Ca,Fa & Min) 1 Each Tablet 1 Tab PO DAILY 30 Days Sucralfate 1 Gm Tablet 1 Tab PO TID Zoloft (Sertraline Hcl) 100 Mg Tablet 1 Tab PO DAILY Seroquel (Quetiapine Fumarate) 300 Mg Tablet 1 Tab PO QHS Reglan (Metoclopramide Hcl) 10 Mg Tablet 10 Mg PO QIDACHS Proair Hfa Inhaler (Albuterol Sulfate) 8.5 Gm Hfa.aer.ad 2 Puff IH PRN Q4-6HRS PRN 21 Days Pantoprazole Sodium (Pantoprazole Sodium) 40 Mg Tablet.dr 40 Mg PO BID Oxycodone Hcl Immed.release (Oxycodone Hcl) 10 Mg Tablet 10 Mg PO PRN Q4HRS Oxybutynin Chloride 5 Mg Tablet 5 Mg PO TID Ondansetron Odt (Ondansetron) 4 Mg Tab.rapdis 1 Tab PO PRN Q8HRS Nystatin 15 Gm Cream..g. 1 Brigido TP QID Myrbetriq (Mirabegron) 50 Mg Tab.er.24h 50 Mg PO DAILY Ms Contin (Morphine Sulfate) 30 Mg Tablet.er 1 Tab PO TID MDD 3 Tablet(s) 5 Days Midodrine Hcl 10 Mg Tablet 10 Mg PO PRN TID PRN [Lidoderm patch 5%] TP DAILY Levothyroxine Sodium 75 Mcg Tablet 0.5 Tab PO DAILY Probiotic (Lactobacillus Acidophilus) 1 Each Capsule 1 Cap PO DAILY 10 Days Duoneb 0.5-3(2.5) Mg/3 Ml (Albuterol/Ipratropium) 3 Ml Ampul.neb 3 Ml NEB PRN Q6HRS PRN Imitrex (Sumatriptan Succinate) 100 Mg Tablet 100 Mg PO 1-2XD PRN Hydrocortisone 453.6 Gm Cream..g. 1 Brigido TP PRN Q6HRS PRN Gabapentin 600 Mg Tablet 300 Mg PO TID Cetirizine Hcl 10 Mg Tablet 1 Tab PO DAILY Calcium Carbonate 500 Mg Tablet 500 Mg PO PRN Q4HRS PRN Diphenhydramine Hcl 25 Mg Tablet 1 Tab PO PRN Q4HRS PRN 30 Days Vitamin A & D Ointment (Petrolatum,White/Lanolin) 113 Gm Oint...g. 113 Gm TP BID Famotidine 20 Mg Tablet 20 Mg PO BID Terazosin Hcl 2 Mg Capsule 1 Cap PO QHS Trazodone Hcl 50 Mg Tablet 25 Mg PO PRN TID PRN Lovenox (Enoxaparin Sodium) 40 Mg/0.4 Ml Disp.syrin 40 Mg SQ DAILY Zinc-220 (Zinc Sulfate) 220 Mg Capsule 220 Mg PO DAILY Thiamine Hcl 100 Mg/1 Ml Vial 100 Mg IJ DAILY08 Senna Lax (Sennosides) 8.6 Mg Tablet 8.6 Mg PO BID Atorvastatin Calcium 10 Mg Tablet 1 Tab PO DAILY Unasyn 3 Gm Vial (Ampicillin Sodium/Sulbactam Na) 3 Gm Vial 3 Gm IJ Q8HRS Folic Acid 1 Mg Tablet 1 Tab PO DAILY Advair 250-50 Diskus (Fluticasone/Salmeterol) 1 Each Disk.w.dev 1 Puff IH BID Ferrous Sulfate 325 Mg Tablet 1 Tab PO DAILY Tums (Calcium Carbonate) 300 Mg Tab.chew 500 Mg PO TID Baclofen 20 Mg Tablet 20 Mg PO HS Aspir-Low (Aspirin) 81 Mg Tablet.dr 1 Tab PO DAILY Oxcarbazepine 300 Mg Tablet 600 Mg PO BID Doxepin Hcl 50 Mg Capsule 75 Mg PO HS [Bisac-Evac] RC DAILY [Oxychlorosene] BID Vitamin D2 (Ergocalciferol (Vitamin D2)) 50,000 Unit Capsule 1 Cap PO WEEKLY Vitals/I & O Vital Sign - Last 24 Hours 01/18/21 01/18/21 01/18/21 01/18/21 15:00 15:45 16:00 16:25 Temp 98.6 98.6 Pulse 56 87 90 Resp 17 17 B/P (MAP) 174/73 (106) 154/68 (96) 153/74 (100) Pulse Ox 96 98 93 98 O2 Delivery Room Air Room Air Room Air Room Air 01/18/21 01/18/21 01/18/21 01/18/21 16:29 17:00 18:10 19:00 Temp 98.0 98.0 Pulse 91 93 94 71 Resp 18 B/P (MAP) 157/94 (115) 165/95 (118) 162/97 (118) 125/65 (85) Pulse Ox 95 O2 Delivery Room Air 01/18/21 01/18/21 01/18/21 01/18/21 20:00 20:44 20:50 23:00 Temp 98.0 98.0 Pulse 71 97 Resp 18 B/P (MAP) 125/65 93/46 (62) Pulse Ox 99 92 O2 Delivery Room Air Room Air Room Air 01/19/21 01/19/21 01/19/21 01/19/21 03:00 07:00 07:42 08:00 Temp 97.7 98.2 97.7 98.2 Pulse 97 116 Resp 18 16 B/P (MAP) 107/48 (67) 106/60 (75) Pulse Ox 97 97 97 O2 Delivery Room Air Room Air Room Air Room Air 01/19/21 01/19/21 11:00 11:11 Temp 97.8 97.8 Pulse 101 Resp 18 B/P (MAP) 112/68 (83) Pulse Ox 98 97 O2 Delivery Room Air Room Air Intake and Output 01/18/21 01/18/21 01/19/21 14:59 22:59 06:59 Intake Total 0 ml 440 ml 600 ml Output Total 800 ml 1650 ml Balance 0 ml -360 ml -1050 ml Justicifation of Admission Dx: Justifications for Admission: Justification of Admission Dx: N/A JULIETA BRONSON MD January 19, 2021 12:08
--- NOTE | 2021-01-19 14:00 | RAD ---
MRI of the Brain without and with Contrast 01/19/2021 Clinical History: Altered mental status.. Technique: Unenhanced T1-weighted sagittal axial and coronal and FLAIR sagittal and axial and T2-weig hted, gradient echo and diffusion-weighted axial images of the brain were obtained. After the intrave nous administration of 18.8 cc of Clariscan, enhanced T1-weighted axial and coronal images of the bra in were obtained. Findings: The ventricles and sulci are within normal limits in size and configuration. The ventricles and sulci are within normal limits in size and configuration. Patchy and a few small s cattered areas of increased signal intensity are seen within the periventricular and subcortical whit e matter of both cerebral hemispheres on the FLAIR and T2-weighted images consistent most likely with areas of very mild small vessel ischemic disease. No acute parenchymal abnormality is seen. No extra -axial fluid collection is noted. No area of abnormal contrast enhancement is seen. There is no MRI e vidence of acute ischemia/infarction. Mild mucosal thickening is seen scattered throughout the ethmoid air cells bilaterally. There are are minimal bilateral mastoid effusions. Normal flow voids are seen within the major vascular structures surrounding the brain parenchyma. IMPRESSION: No acute parenchymal abnormality is seen. Electronically signed by: Siva Siddiqui MD (01/19/2021 1:58 PM) [id number]
[2021-01-19] MEDS: POTASSIUM CL 40MEQ IN 0.9%NACL 1,000 ML IV SCH ×2 (14:52→20:15)
--- NOTE | 2021-01-19 14:57 | NUR ---
SS following up with discharge planning. SS reviewed pt chart and discussed with pt RN. Pt is LTC resident from [facility], ; fax [phone]. Pt is currently on room air. Pt on IV Ampicillin. Pt having Brain MRI today. SS will continue to follow for discharge planning.
[2021-01-19] MEDS: VANCOMYCIN PER PHARMACY MC PRN (15:13)
--- NOTE | 2021-01-19 15:13 | NUR ---
Pharmacy Vancomycin Dosing Note S:Consulted to monitor and dose vancomycin started 01/18/21. O:CAESAR AVALOS is a 45 year old F with Cellulitis UTI . Height: 5 feet, 1 inches Weight: 93.9 kg Oden Body Weight: 47.80 Adjusted Body Weight: 66.24 Dosing Weight: Actual Other Antibiotics: UNASYN LABS: Last BUN: 6 Last Creatinine: 0.6 Creatinine Clearance: >100 mL/min Last WBC: 11.5 Last Procalcitonin: Tmax (past 24 hours): 98.2 Microbiology: 01/18 Blood: No growth I/O: 1040/2450 Vancomycin Dosing: Loading Dose: x1 Dosing Weight: Actual Target Trough: 10-20 A: Based on: Body weight and renal function P: 1. Start Vancomycin 1500 mg IV q12h 2. Follow up Trough level on 01/21/21 at 0430 3. Pharmacy will continue to monitor, follow and adjust therapy as needed. AGNES DECKER [facility], 01/19/21 [id number]
[2021-01-19] MEDS: VANCOMYCIN 1.5 GM in IV NORMAL SALINE 500ML BAG 500 ML IV SCH (17:23)
--- NOTE | 2021-01-19 17:54 | PN ---
DATE: 01/19/2021 SUBJECTIVE: The patient is resting flat in bed, no apparent distress. She is more awake, alert today. Apparently, she is scheduled for an MRI of the brain and she was seen yesterday by the Infectious Disease specialist and she is now on Unasyn every 6 hours. OBJECTIVE: GENERAL: When I examined her, she looked well and was clearly in no apparent respiratory distress. No pallor, jaundice, cyanosis or thyromegaly. No jugular venous distention. No lower limb edema. VITAL SIGNS: Her heart rate was 116, blood pressure was 106/60, temperature was 98.2, respiratory rate was 16 and oxygen saturation was 97% on room air. HEAD, EYES, EARS, NOSE AND THROAT: Normocephalic, atraumatic. NECK: Supple. HEART: Normal first and second heart sounds. No gallop or murmur. CHEST: Clear to auscultation. No crepitation or rhonchi. ABDOMEN: Markedly distended, soft with a gastrostomy tube in the right upper quadrant. She has a suprapubic catheter in place. NEUROLOGIC: She is awake, alert, responding appropriately. Cranial nerves intact. She moves upper extremities without difficulty. She has paraplegia with neurogenic bladder and bowel. EXTREMITIES: The swelling and erythema of the right foot has completely resolved. Her intake and output are incompletely recorded. LABORATORY DATA: Her lab work as of this morning showed a white cell count of 11,500; hemoglobin 11; hematocrit 33; MCV 92 and platelet count of 282,000. Her chemistry showed a serum sodium of 141, potassium 3, chloride 106, bicarbonate 20, anion gap of 15, BUN 6, creatinine 0.6, estimated GFR was 107 mL per minute. Her glucose 116, calcium was 8.5. Total bilirubin, AST, ALT were normal. Alkaline phosphatase slightly elevated. Total protein 6.6, albumin 3.7. ASSESSMENT: Altered mental status, improving. Left foot cellulitis, which she was treated with ampicillin 12 grams IV continuously. Her hyponatremia has resolved. 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 She has also been on multiple narcotics including morphine and oxycodone together with muscle relaxant that I held. PLAN: To continue with IV antibiotic. She has hypokalemia, I will discontinue her lactated Ringer's, change it to normal saline with 40 mEq of potassium chloride. [facility] [place]: [place]ODY/kevin TID: [id number]
--- NOTE | 2021-01-19 20:56 | NUR ---
B/P 71/,77,86/. Call to Dr. Rodrigues, order for NS bolus and monitor B/P. Call to Pharmacy regarding HS medications that can decrease. Informed Dr. Rodrigues of medications pharmacy said to hold. Dr. Ravi smith with medications being held per Pharmacist. Addendum: 01/19/21 at 2152 by AMALIA PANCHAL RN Medication held Ditropan, MS Contin, Hytrin, Seroquel, Sinequan per Angelica in Pharmacy.
[2021-01-19] MEDS: TERAZOSIN 1 MG CAPSULE. PO SCH (21:18)
[2021-01-19] MEDS: QUEtiapine 300 MG TAB.ER.24H. PO SCH (21:22)
[2021-01-19] MEDS: DOXEPIN HCL 25 MG CAPSULE. PO SCH (21:22)
[2021-01-19] MEDS ORDERED: IV NORMAL SALINE 1000ML BAG 1,000 ML IV ONE (21:30)
[2021-01-20] VITALS (11 sets, daily range): BP systolic 77–139; BP diastolic 28–64
[2021-01-20] MEDS: MIDODRINE 5 MG TABLET PO PRN ×2 (00:49→20:45)
--- NOTE | 2021-01-20 00:51 | NUR ---
B/P 85/33, pulse 77. Midodrine PO given for low B/P.
[2021-01-20] MEDS: AMPICILLIN/SULBACTAM 3 GM in IV NORMAL SALINE 100ML 100 ML IV SCH ×4 (01:03→20:06)
[2021-01-20] MEDS: VANCOMYCIN 1.5 GM in IV NORMAL SALINE 500ML BAG 500 ML IV SCH ×2 (05:04→16:45)
[2021-01-20] MEDS: LEVOTHYROXINE 75 MCG TABLET PO SCH (06:14)
[2021-01-20] MEDS: POTASSIUM CL 40MEQ IN 0.9%NACL 1,000 ML IV SCH ×2 (06:15→13:41)
[2021-01-20] MEDS: BUDESONIDE 0.5 MG/2 ML NEBU. NEB SCH ×2 (06:49→20:50)
[2021-01-20] MEDS: IPRATRPIUM/ALBUTEROL 0.5/2.5MG 3 ML NEBU. NEB SCH ×2 (06:49→20:49)
[2021-01-20] MEDS: PANTOPRAZOLE 40 MG TABLET.DR. PO SCH ×2 (07:13→16:44)
[2021-01-20] MEDS: SUCRALFATE 1 GM TABLET. PO SCH ×3 (07:13→16:44)
[2021-01-20] MEDS: METOCLOPRAMIDE 10 MG TABLET. PO SCH ×4 (07:13→20:41)
[2021-01-20] MEDS: THIAMINE IM 200 MG/2 ML VIAL. IM SCH (08:00)
[2021-01-20 08:19] LABS: CREATININE 0.5 mg/dL (0.6-1.0); GFR 132.8; POTASSIUM 3.4 mmol/L (3.5-5.1)
[2021-01-20] MEDS: MORPHINE ER 30 MG TABLET.ER PO SCH ×3 (08:32→21:03)
[2021-01-20] MEDS: OXcarbazepine 300 MG TABLET PO SCH ×2 (08:33→20:44)
[2021-01-20] MEDS: SENNOSIDES 8.6 MG TABLET PO SCH ×2 (08:33→20:42)
[2021-01-20] MEDS: LACTOBACILLUS RHAMNOSUS GG 1 CAPSULE. PO SCH (08:33)
[2021-01-20] MEDS: GABAPENTIN 300 MG CAPSULE. PO SCH ×3 (08:33→20:42)
[2021-01-20] MEDS: MIRABEGRON 25 MG TAB.ER.24H PO SCH (08:33)
[2021-01-20] MEDS: FAMOTIDINE 20 MG TABLET. PO SCH ×2 (08:34→20:42)
[2021-01-20] MEDS: TOPIRAMATE 25 MG TABLET. PO SCH ×2 (08:34→20:42)
[2021-01-20] MEDS: FOLIC ACID 1 MG TABLET. PO SCH (08:34)
[2021-01-20] MEDS: CALCIUM CARBONATE 500 MG TAB.CHEW PO SCH ×3 (08:34→20:42)
[2021-01-20] MEDS: OXYBUTYNIN CHLORIDE 5 MG TABLET PO SCH ×3 (08:34→20:44)
[2021-01-20] MEDS: MULTIVITAMIN with MINERAL TABLET. PO SCH (08:34)
[2021-01-20] MEDS: FERROUS SULFATE 325 MG TABLET. PO SCH (08:34)
[2021-01-20] MEDS: ASCORBIC ACID 500 MG TABLET PO SCH ×2 (08:34→20:42)
[2021-01-20] MEDS: SERTRALINE 50 MG TABLET. PO SCH (08:34)
[2021-01-20] MEDS: NYSTATIN 100,000 UNIT/GM TOPICAL CREAM 15GM TUBE. TP SCH ×4 (08:35→21:00)
[2021-01-20] MEDS: VITS A & D/LANOLIN TOPICAL OINTMENT 42GM TUBE. TP SCH ×2 (08:36→21:00)
[2021-01-20] MEDS: TRIAMCINOLONE ACETONIDE 0.1% TOPICAL OINTMENT 15GM TUBE. TP SCH ×2 (08:36→21:35)
[2021-01-20] MEDS: ZINC OXIDE 20% TOPICAL OINTMENT 28GM TUBE. TP SCH (08:39)
--- NOTE | 2021-01-20 09:42 | NUR ---
Am assessment was completed at 0720, incorrect time on charting.
--- NOTE | 2021-01-20 10:19 | PDOC ---
Infectious Disease Note Subjective: Subjective Patient feels much better Eager for discharge back to her facility today Denies fever, nausea, vomiting, shortness of breath, diarrhea, abdominal pain, rash Otherwise as above Vital Signs: Vital Signs Vital Signs Date Time Temp Pulse Resp B/P (MAP) Pulse Ox O2 Delivery O2 Flow Rate FiO2 01/20/21 09:33 Room Air 01/20/21 07:45 98.6 81 18 106/43 (64) 96 98.6 Physical Exam: PHYSICAL EXAM GENERAL: Alert, awake female in no acute distress. HEENT: Normocephalic, atraumatic. Anicteric. Oral mucosa moist. NECK: Supple. LUNGS: Clear. HEART: S1, S2. ABDOMEN: Soft, obese. Bowel sounds present. Ostomy in place. Suprapubic catheter site in place. CHEST WALL: Right Port-A-Cath site clean. EXTREMITIES: Right great toe abrasion present with some skin breakdown. No purulence, no fluctuance. Dorsalis pedis palpable. DERMATOLOGIC: No generalized rash. Chronic wounds on the buttock noted, not infected. CENTRAL NERVOUS SYSTEM: Paraplegia. NEUROLOGIC: Alert, awake. Upper extremity strength noted. PSYCHIATRIC: Calm and cooperative. Portacath site clean Medications: Inpatient Meds: Medications reviewed. Labs: Lab Laboratory Tests Test 01/20/21 07:30 Sodium Level 145 mmol/L (136-145) Potassium Level 3.4 mmol/L (3.5-5.1) Chloride Level 112 mmol/L (98-107) Carbon Dioxide Level 19 mmol/L (21-32) Anion Gap 14 (6-14) Blood Urea Nitrogen 4 mg/dL (7-20) Creatinine 0.5 mg/dL (0.6-1.0) Estimated GFR (Cockcroft-Gault) 132.8 Glucose Level 110 mg/dL (70-99) Calcium Level 8.0 mg/dL (8.5-10.1) Objective: Assessment: 1. History of enterococcal bacteremia, on ampicillin prior to admission from [facility]. She was on ampicillin 12 gm daily Faxed medical records from Dr. Westley BAIN MD from [facility] reviewed Blood cultures positive on 01/06/2021 at [facility] Repeat blood cultures negative from 01/07/2021 at [facility] TTE did not get a great view of all the valves. No clear evidence of vegetation. Clinical suspicion for endocarditis was low per Dr. Cabrera. Hold on IAN Approximately 2 weeks after completion of antibiotic therapy, they plan to do 2 sets of blood culture to ensure bloodstream remains clear of bacteremia. Patient was discharged on ampicillin 12 g IV every 24 via continuous infusion Blood cultures here remain negative 2. Pyuria SPC changed urine culture negative here 3. Right great toe wound with right lower extremity cellulitis with underlying chronic edema at [facility] from injury Injury to great toe from shower December 31, 2020 Stable here No evidence of infection at this time 4. 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 5. Anxiety and depression. 6. HISTORY OF ALLERGY TO DOXYCYCLINE WITH ITCHING. 7. Migraine. Encephalopathy ,improved, ct head neg,likely metabolic, MRI of brain noted 8. Gastroesophageal reflux disease. 9. Neurogenic bowel and bladder with ostomy in place and suprapubic catheter. 10. Bipolar disorder 11. History of PTSD Plan: Plan of Care Patient can be discharged IV ampicillin 12 GM continuous infusion to DC today from ID standpoint Patient to continue follow-up with Dr. Cabrera at [facility] as scheduled Final duration of treatment for bacteremia per Dr. Cabrera Patient can follow-up in ID clinic if needed Discussed with nursing staff RITA AVILA MD January 20, 2021 10:19
--- NOTE | 2021-01-20 10:55 | PDOC ---
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, leaving her with neurogenic bowel and bladder and paraplegia Negative brain MRI Prior B12 deficiency has resolved, B12 level was 583 on 04/23/2020 Plan Okay for discharge Follow-up with her neurologist, asked nurse to provide patient copy of her MRI report from yesterday Continue current treatment of medical diseases Subjective Feels better, wants to go back to snf Objective Vital Signs Date Time Temp Pulse Resp B/P (MAP) Pulse Ox O2 Delivery O2 Flow Rate FiO2 01/20/21 10:12 98.6 77 18 139/64 (89) 96 Room Air 98.6 Intake and Output 01/20/21 07:00 Intake Total 2590 ml Output Total 1600 ml Balance 990 ml Intake Oral 440 ml IV Total 2150 ml Output Urine Total 1500 ml Stool Total 100 ml PHYSICAL EXAM Alert. Oriented to time, place and person. PERRL. EOMI. CN: no focal findings. Muscle tone: normal. Muscle strength: 4/5 arms, 0/5 legs DTR: 1+ Plantar reflex: Not applicable Gait: not examined in bed. Sensory exam: T4 sensory level No cerebellar signs elicited. Review of Relevant I have reviewed the following items therese (where applicable) has been applied. Labs Laboratory Tests Test 01/19/21 04:35 01/19/21 08:42 01/19/21 09:20 01/20/21 07:30 White Blood Count 11.5 x10^3/uL (4.0-11.0) Red Blood Count 3.58 x10^6/uL (3.50-5.40) Hemoglobin 10.9 g/dL (12.0-15.5) Hematocrit 32.9 % (36.0-47.0) Mean Corpuscular Volume 92 fL (79-100) Mean Corpuscular Hemoglobin 30 pg (25-35) Mean Corpuscular Hemoglobin Concent 33 g/dL (31-37) Red Cell Distribution Width 14.6 % (11.5-14.5) Platelet Count 282 x10^3/uL (140-400) Neutrophils (%) (Auto) 91 % (31-73) Lymphocytes (%) (Auto) 6 % (24-48) Monocytes (%) (Auto) 3 % (0-9) Eosinophils (%) (Auto) 0 % (0-3) Basophils (%) (Auto) 0 % (0-3) Neutrophils # (Auto) 10.4 x10^3/uL (1.8-7.7) Lymphocytes # (Auto) 0.6 x10^3/uL (1.0-4.8) Monocytes # (Auto) 0.4 x10^3/uL (0.0-1.1) Eosinophils # (Auto) 0.0 x10^3/uL (0.0-0.7) Basophils # (Auto) 0.0 x10^3/uL (0.0-0.2) Segmented Neutrophils % 86 % (35-66) Band Neutrophils % 3 % (0-9) Lymphocytes % 6 % (24-48) Monocytes % 4 % (0-10) Eosinophils % 1 % (0-5) Platelet Estimate Adequate (ADEQUATE) Polychromasia Slight Sodium Level 141 mmol/L (136-145) 145 mmol/L (136-145) Potassium Level 3.0 mmol/L (3.5-5.1) 3.4 mmol/L (3.5-5.1) Chloride Level 106 mmol/L (98-107) 112 mmol/L (98-107) Carbon Dioxide Level 20 mmol/L (21-32) 19 mmol/L (21-32) Anion Gap 15 (6-14) 14 (6-14) Blood Urea Nitrogen 6 mg/dL (7-20) 4 mg/dL (7-20) Creatinine 0.6 mg/dL (0.6-1.0) 0.5 mg/dL (0.6-1.0) Estimated GFR (Cockcroft-Gault) 107.6 132.8 BUN/Creatinine Ratio 10 (6-20) Glucose Level 116 mg/dL (70-99) 110 mg/dL (70-99) Calcium Level 8.5 mg/dL (8.5-10.1) 8.0 mg/dL (8.5-10.1) Total Bilirubin 0.4 mg/dL (0.2-1.0) Aspartate Amino Transf (AST/SGOT) 16 U/L (15-37) Alanine Aminotransferase (ALT/SGPT) 21 U/L (14-59) Alkaline Phosphatase 344 U/L (46-116) Total Protein 6.6 g/dL (6.4-8.2) Albumin 3.7 g/dL (3.4-5.0) Albumin/Globulin Ratio 1.3 (1.0-1.7) Lactic Acid Level 0.6 mmol/L (0.4-2.0) Coronavirus (COVID-19)(PCR) Negative (NEGATIVE) SARS-CoV-2 Antigen (Rapid) Negative (NEGATIVE) Laboratory Tests Test 01/20/21 07:30 Sodium Level 145 mmol/L (136-145) Potassium Level 3.4 mmol/L (3.5-5.1) Chloride Level 112 mmol/L (98-107) Carbon Dioxide Level 19 mmol/L (21-32) Anion Gap 14 (6-14) Blood Urea Nitrogen 4 mg/dL (7-20) Creatinine 0.5 mg/dL (0.6-1.0) Estimated GFR (Cockcroft-Gault) 132.8 Glucose Level 110 mg/dL (70-99) Calcium Level 8.0 mg/dL (8.5-10.1) Microbiology 01/18/21 Blood Culture - Preliminary, Resulted NO GROWTH AFTER 1 DAY 01/18/21 Urine Culture - Final, Complete Medications Current Medications Ceftriaxone Sodium (Rocephin) 1 gm 1X ONCE IVP Last administered on 01/18/21at 02:05; Start 01/18/21 at 02:00; Stop 01/18/21 at 02:01; Status DC Ondansetron HCl (Zofran) 4 mg PRN Q8HRS PRN IV NAUSEA/VOMITING 1ST CHOICE Last administered on 01/18/21at 09:36; Start 01/18/21 at 02:15; Stop 01/19/21 at 02:14; Status DC Acetaminophen (Tylenol) 1,000 mg PRN Q8HRS PRN PO MILD pain or fever Last administered on 01/19/21at 03:19; Start 01/18/21 at 10:45 Albuterol Sulfate (Ventolin Neb Soln) 8.5 mg Q6H PRN INH wheezing; Start 01/18/21 at 10:45; Status UNV Ampicillin Sodium/ Sulbactam Sodium (Unasyn) 12 gm Q24H IV ; Start 01/18/21 at 10:45; Status UNV Ergocalciferol (Vitamin D2) 50,000 unit WEEKLY PO ; Start 01/25/21 at 09:00 Famotidine (Pepcid) 20 mg BID PO Last administered on 01/20/21at 08:34; Start 01/18/21 at 12:00 Ferrous Sulfate (Feosol) 325 mg DAILY PO Last administered on 01/20/21at 08:34; Start 01/18/21 at 12:00 Folic Acid (Folic Acid) 1 mg DAILY PO Last administered on 01/20/21at 08:34; Start 01/18/21 at 12:00 Hydrocortisone (Cortaid) 1 brigido PRN Q6HRS PRN TP ITCHING; Start 01/18/21 at 10:45 Albuterol Sulfate (Ventolin Neb Soln) 2.5 mg PRN Q6HRS PRN NEB SHORTNESS OF BREATH; Start 01/18/21 at 11:30 Levothyroxine Sodium (Synthroid) 37.5 mcg DAILY06 PO Last administered on 01/20/21at 06:14; Start 01/18/21 at 12:00 Metoclopramide HCl (Reglan) 10 mg QIDACHS PO Last administered on 01/20/21at 07:13; Start 01/18/21 at 11:30 Mirabegron (Myrbetriq) 50 mg DAILY PO Last administered on 01/20/21at 08:33; Start 01/18/21 at 12:00 Nystatin (Mycostatin) 1 brigido QID TP ; Start 01/18/21 at 13:00; Status UNV Oxcarbazepine (Trileptal) 600 mg BID PO ; Start 01/18/21 at 21:00; Status UNV Oxybutynin Chloride (Ditropan) 5 mg TID PO ; Start 01/18/21 at 14:00; Status UNV Pantoprazole Sodium (Protonix) 40 mg BID PO ; Start 01/18/21 at 21:00; Status UNV Sennosides (Senna) 8.6 mg BID PO ; Start 01/18/21 at 21:00; Status UNV Sucralfate (Carafate) 1 gm TID PO ; Start 01/18/21 at 14:00; Status UNV Sumatriptan Succinate (Imitrex) 100 mg DAILY PRN PO MIGRAINE HEADACHE; Start 01/18/21 at 10:45; Status UNV Thiamine HCl (Thiamine Im) 100 mg DAILY08 IM ; Start 01/19/21 at 08:00; Status UNV Topiramate (Topamax) 50 mg BID PO ; Start 01/18/21 at 21:00; Status UNV Trazodone HCl (Desyrel) 25 mg PRN TID PRN PO ; Start 01/18/21 at 10:45; Status UNV Triamcinolone Acetonide (Kenalog 0.1%) 1 brigido BID TP ; Start 01/18/21 at 21:00; Status UNV Ascorbic Acid (Vitamin C) 500 mg BID PO Last administered on 01/20/21at 08:34; Start 01/18/21 at 21:00 Calcium Carbonate/ Glycine (Tums) 500 mg TID PO Last administered on 01/20/21at 08:34; Start 01/18/21 at 14:00 Doxepin HCl (SINEquan) 75 mg HS PO Last administered on 01/18/21at 20:45; Start 01/18/21 at 21:00 Budesonide (Pulmicort) 0.5 mg RTBID NEB Last administered on 01/20/21at 06:49; Start 01/18/21 at 20:00 Gabapentin (Neurontin) 300 mg TID PO Last administered on 01/20/21at 08:33; Start 01/18/21 at 14:00 Lactobacillus Rhamnosus (Culturelle) 1 cap DAILY PO Last administered on 01/20/21at 08:33; Start 01/19/21 at 09:00 Midodrine (Proamatine) 10 mg PRN TID PRN PO hypotension Last administered on 01/20/21at 00:49; Start 01/18/21 at 12:15 Multivitamins (Thera M Plus) 1 tab DAILY PO Last administered on 01/20/21at 08:34; Start 01/19/21 at 09:00 Vitamin A/Vitamin D (Vitamin A & D Ointment) 1 brigido BID TP Last administered on 01/20/21at 08:36; Start 01/18/21 at 21:00 Non-Formulary Medication (Quetiapine Fumarate (Seroquel)) 1 tab QHS PO ; Start 01/18/21 at 21:00; Status UNV Non-Formulary Medication (Sertraline Hcl (Zoloft)) 1 tab DAILY PO ; Start 01/19/21 at 09:00; Status UNV Terazosin HCl (Hytrin) 2 mg QHS PO Last administered on 01/18/21at 20:44; Start 01/18/21 at 21:00 Non-Formulary Medication (Zinc Oxide (Desitin)) 1 brigido DAILY TP ; Start 01/19/21 at 09:00; Status UNV Acetaminophen (Tylenol) 1,000 mg PRN Q8HRS PRN PO pain or fever; Start 01/18/21 at 10:45; Stop 01/18/21 at 11:21; Status DC Albuterol Sulfate (Ventolin Neb Soln) 8.5 mg Q6H PRN INH wheezing; Start 01/18/21 at 10:45; Status UNV Ampicillin Sodium/ Sulbactam Sodium (Unasyn) 12 gm Q24H IV ; Start 01/18/21 at 10:45; Status UNV Ergocalciferol (Vitamin D2) 50,000 unit WEEKLY PO ; Start 01/25/21 at 09:00; Stop 01/18/21 at 11:21; Status DC Famotidine (Pepcid) 20 mg BID PO ; Start 01/18/21 at 21:00; Stop 01/18/21 at 11:21; Status DC Ferrous Sulfate (Feosol) 325 mg DAILY PO ; Start 01/19/21 at 09:00; Stop at 11:22; Status DC Folic Acid (Folic Acid) 1 mg DAILY PO ; Start 01/19/21 at 09:00; Stop 01/18/21 at 11:22; Status DC Hydrocortisone (Cortaid) 1 brigido PRN Q6HRS PRN TP ITCHING; Start 01/18/21 at 10:45; Stop 01/18/21 at 11:22; Status DC Albuterol/ Ipratropium (Duoneb) 3 ml RTQID NEB Last administered on 01/19/21at 11:09; Start 01/18/21 at 16:00; Stop 01/19/21 at 17:24; Status DC Levothyroxine Sodium (Synthroid) 37.5 mcg DAILY PO ; Start 01/19/21 at 09:00; Stop 01/18/21 at 11:23; Status DC Metoclopramide HCl (Reglan) 10 mg QIDACHS PO ; Start 01/18/21 at 11:30; Stop 01/18/21 at 11:24; Status DC Mirabegron (Myrbetriq) 50 mg DAILY PO ; Start 01/19/21 at 09:00; Stop 01/18/21 at 11:24; Status DC Nystatin (Mycostatin) 1 brigido QID TP Last administered on 01/20/21at 08:35; Start 01/18/21 at 13:00 Oxcarbazepine (Trileptal) 600 mg BID PO Last administered on 01/20/21at 08:33; Start 01/18/21 at 21:00 Oxybutynin Chloride (Ditropan) 5 mg TID PO Last administered on 01/20/21at 08:34; Start 01/18/21 at 14:00 Pantoprazole Sodium (Protonix) 40 mg BIDAC PO Last administered on 01/20/21at 07:13; Start 01/18/21 at 16:30 Sennosides (Senna) 8.6 mg BID PO Last administered on 01/20/21at 08:33; Start 01/18/21 at 21:00 Sucralfate (Carafate) 1 gm TIDAC PO Last administered on 01/20/21at 07:13; Start 01/18/21 at 16:30 Sumatriptan Succinate (Imitrex) 100 mg PRN DAILY PRN PO MIGRAINE HEADACHE Last administered on 01/20/21at 07:42; Start 01/18/21 at 10:45 Thiamine HCl (Thiamine Im) 100 mg DAILY08 IM Last administered on 01/19/21at 08: 35; Start 01/19/21 at 08:00 Topiramate (Topamax) 50 mg BID PO Last administered on 01/20/21at 08:34; Start 01/18/21 at 21:00 Trazodone HCl (Desyrel) 25 mg PRN QHS PRN PO INSOMNIA; Start 01/18/21 at 21:00 Triamcinolone Acetonide (Kenalog 0.1%) 1 brigido BID TP Last administered on 01/20/21at 08:36; Start 01/18/21 at 21:00 Non-Formulary Medication (Ascorbic Acid (Vitamin C)) 500 mg BID PO ; Start 01/18/21 at 21:00; Status UNV Non-Formulary Medication (Calcium Carbonate (Tums)) 500 mg TID PO ; Start 01/18/21 at 14:00; Status UNV Non-Formulary Medication (Doxepin Hcl ) 75 mg HS PO ; Start 01/18/21 at 21:00; Status UNV Non-Formulary Medication (Fluticasone/ Salmeterol (Advair 250-50 Diskus)) 1 puff BID IH ; Start 01/18/21 at 21:00; Status UNV Non-Formulary Medication (Gabapentin ) 300 mg TID PO ; Start 01/18/21 at 14:00; Status UNV Non-Formulary Medication (Lactobacillus Acidophilus (Probiotic)) 1 cap DAILY PO ; Start 01/19/21 at 09:00; Status UNV Non-Formulary Medication (Midodrine Hcl ) 10 mg PRN TID PRN PO hypotension; Start 01/18/21 at 10:45; Status UNV Non-Formulary Medication (Multivit,Ther Iron,Ca,Fa & Min (Thera-M Caplet)) 1 tab DAILY PO ; Start 01/19/21 at 09:00; Status UNV Non-Formulary Medication (Petrolatum,White/ Lanolin (Vitamin A & D Ointment)) 113 gm BID TP ; Start 01/18/21 at 21:00; Status UNV Quetiapine Fumarate (SEROquel XR) 300 mg QHS PO Last administered on 01/18/21at 20:45; Start 01/18/21 at 21:00 Sertraline HCl (Zoloft) 100 mg DAILY PO Last administered on 01/20/21at 08:34; Start 01/19/21 at 09:00 Non-Formulary Medication (Terazosin Hcl ) 1 cap QHS PO ; Start 01/18/21 at 21:00; Status UNV Zinc Oxide (Zinc Oxide 20% Topical) 1 brigido DAILY TP Last administered on 01/20/21at 08:39; Start 01/19/21 at 09:00 Ampicillin Sodium/ Sulbactam Sodium 3 gm/Sodium Chloride 100 ml @ 200 mls/hr Q6HRS IV Last administered on 01/20/21at 07:16; Start 01/18/21 at 18:00 Lactobacillus Rhamnosus (Culturelle) 1 cap BID PO ; Start 01/18/21 at 21:00; Status Cancel Morphine Sulfate (Ms Contin) 30 mg TID PO Last administered on 01/20/21at 08:32; Start 01/18/21 at 22:00 Oxycodone HCl (Roxicodone) 10 mg PRN Q4HRS PRN PO MODERATE-SEVERE PAIN; Start 01/18/21 at 21:45 Sodium Chloride 1,000 ml @ 1,000 mls/hr 1X ONCE IV Last administered on 01/18/21at 22:25; Start 01/18/21 at 22:15; Stop 01/18/21 at 23:14; Status DC Vancomycin HCl 1 gm/Sodium Chloride 250 ml @ 250 mls/hr ONCE ONCE IV Last adm inistered on 01/19/21at 00:09; Start 01/18/21 at 22:15; Stop 01/18/21 at 23:14; Status DC Ringer's Solution 1,000 ml @ 50 mls/hr Q20H IV ; Start 01/19/21 at 09:30; Stop 01/19/21 at 21:29; Status DC Potassium Chloride/Sodium Chloride 1,000 ml @ 100 mls/hr Q10H IV Last administered on 01/19/21at 14:52; Start 01/19/21 at 10:15 Gadoterate Meglumine (Clariscan) 18.8 ml 1X ONCE IVP Last administered on 01/19/21at 11:35; Start 01/19/21 at 11:45; Stop 01/19/21 at 11:46; Status DC Vancomycin HCl (Vanco Per Pharmacy) 1 each PRN DAILY PRN MC SEE COMMENTS Last administered on 01/19/21at 15:13; Start 01/19/21 at 15:00 Vancomycin HCl 1.5 gm/Sodium Chloride 500 ml @ 250 mls/hr Q12H IV Last administered on 01/20/21at 05:04; Start 01/19/21 at 17:00 Vancomycin HCl (Vancomycin Trough Level) 1 each 1X ONCE MC ; Start 01/21/21 at 04:30; Stop 01/21/21 at 04:31 Albuterol/ Ipratropium (Duoneb) 3 ml RTBID NEB Last administered on 01/20/21at 06:49; Start 01/19/21 at 20:00 Propofol (Diprivan) 200 mg STK-MED ONCE IV ; Start 01/19/21 at 10:33; Stop 01/19/21 at 19:11; Status DC Lidocaine HCl (Lidocaine Pf 2% Vial) 5 ml STK-MED ONCE .ROUTE ; Start 01/19/21 at 10:33; Stop 01/19/21 at 19:11; Status DC Ketamine HCl (Ketamine) 50 mg STK-MED ONCE .ROUTE ; Start 01/19/21 at 10:34; Stop 01/19/21 at 19:11; Status DC Midazolam HCl (Versed) 2 mg STK-MED ONCE .ROUTE ; Start 01/19/21 at 10:34; Stop 01/19/21 at 19:11; Status DC Midazolam HCl (Versed) 2 mg STK-MED ONCE .ROUTE ; Start 01/19/21 at 12:18; Stop 01/19/21 at 19:13; Status DC Propofol (Diprivan) 200 mg STK-MED ONCE IV ; Start 01/19/21 at 12:19; Stop 01/19/21 at 19:13; Status DC Sodium Chloride 1,000 ml @ 1,000 mls/hr 1X ONCE IV Last administered on 01/19/21at 21:25; Start 01/19/21 at 21:30; Stop 01/19/21 at 22:29; Status DC Active Scripts Active Reported Desitin (Zinc Oxide) 57 Gm Cream..g. 1 Brigido TP DAILY 5 Days Vitamin C (Ascorbic Acid) 500 Mg Capsule.er 500 Mg PO BID Acetaminophen 500 Mg Tablet 2 Tab PO PRN Q8HRS PRN 15 Days Triamcinolone Acetonide 0.1% Oint (Triamcinolone Acetonide) 15 Gm Oint...g. 1 Brigido TP BID MIX WITH EUCERIN DIRECTED BY PHYSICIAN Topamax (Topiramate) 25 Mg Tablet 2 Tab PO BID 30 Days Tizanidine Hcl 4 Mg Tablet 1 Tab PO QHS Thera-M Caplet (Multivit,Ther Iron,Ca,Fa & Min) 1 Each Tablet 1 Tab PO DAILY 30 Days Sucralfate 1 Gm Tablet 1 Tab PO TID Zoloft (Sertraline Hcl) 100 Mg Tablet 1 Tab PO DAILY Seroquel (Quetiapine Fumarate) 300 Mg Tablet 1 Tab PO QHS Reglan (Metoclopramide Hcl) 10 Mg Tablet 10 Mg PO QIDACHS Proair Hfa Inhaler (Albuterol Sulfate) 8.5 Gm Hfa.aer.ad 2 Puff IH PRN Q4-6HRS PRN 21 Days Pantoprazole Sodium (Pantoprazole Sodium) 40 Mg Tablet.dr 40 Mg PO BID Oxycodone Hcl Immed.release (Oxycodone Hcl) 10 Mg Tablet 10 Mg PO PRN Q4HRS Oxybutynin Chloride 5 Mg Tablet 5 Mg PO TID Ondansetron Odt (Ondansetron) 4 Mg Tab.rapdis 1 Tab PO PRN Q8HRS Nystatin 15 Gm Cream..g. 1 Brigido TP QID Myrbetriq (Mirabegron) 50 Mg Tab.er.24h 50 Mg PO DAILY Ms Contin (Morphine Sulfate) 30 Mg Tablet.er 1 Tab PO TID MDD 3 Tablet(s) 5 Days Midodrine Hcl 10 Mg Tablet 10 Mg PO PRN TID PRN [Lidoderm patch 5%] TP DAILY Levothyroxine Sodium 75 Mcg Tablet 0.5 Tab PO DAILY Probiotic (Lactobacillus Acidophilus) 1 Each Capsule 1 Cap PO DAILY 10 Days Duoneb 0.5-3(2.5) Mg/3 Ml (Albuterol/Ipratropium) 3 Ml Ampul.neb 3 Ml NEB PRN Q6HRS PRN Imitrex (Sumatriptan Succinate) 100 Mg Tablet 100 Mg PO 1-2XD PRN Hydrocortisone 453.6 Gm Cream..g. 1 Brigido TP PRN Q6HRS PRN Gabapentin 600 Mg Tablet 300 Mg PO TID Cetirizine Hcl 10 Mg Tablet 1 Tab PO DAILY Calcium Carbonate 500 Mg Tablet 500 Mg PO PRN Q4HRS PRN Diphenhydramine Hcl 25 Mg Tablet 1 Tab PO PRN Q4HRS PRN 30 Days Vitamin A & D Ointment (Petrolatum,White/Lanolin) 113 Gm Oint...g. 113 Gm TP BID Famotidine 20 Mg Tablet 20 Mg PO BID Terazosin Hcl 2 Mg Capsule 1 Cap PO QHS Trazodone Hcl 50 Mg Tablet 25 Mg PO PRN TID PRN Lovenox (Enoxaparin Sodium) 40 Mg/0.4 Ml Disp.syrin 40 Mg SQ DAILY Zinc-220 (Zinc Sulfate) 220 Mg Capsule 220 Mg PO DAILY Thiamine Hcl 100 Mg/1 Ml Vial 100 Mg IJ DAILY08 Senna Lax (Sennosides) 8.6 Mg Tablet 8.6 Mg PO BID Atorvastatin Calcium 10 Mg Tablet 1 Tab PO DAILY Unasyn 3 Gm Vial (Ampicillin Sodium/Sulbactam Na) 3 Gm Vial 3 Gm IJ Q8HRS Folic Acid 1 Mg Tablet 1 Tab PO DAILY Advair 250-50 Diskus (Fluticasone/Salmeterol) 1 Each Disk.w.dev 1 Puff IH BID Ferrous Sulfate 325 Mg Tablet 1 Tab PO DAILY Tums (Calcium Carbonate) 300 Mg Tab.chew 500 Mg PO TID Baclofen 20 Mg Tablet 20 Mg PO HS Aspir-Low (Aspirin) 81 Mg Tablet.dr 1 Tab PO DAILY Oxcarbazepine 300 Mg Tablet 600 Mg PO BID Doxepin Hcl 50 Mg Capsule 75 Mg PO HS [Bisac-Evac] RC DAILY [Oxychlorosene] BID Vitamin D2 (Ergocalciferol (Vitamin D2)) 50,000 Unit Capsule 1 Cap PO WEEKLY Vitals/I & O Vital Sign - Last 24 Hours 01/19/21 01/19/21 01/19/21 01/19/21 11:00 11:11 13:10 13:24 Temp 97.8 97.5 97.8 97.5 Pulse 101 99 94 Resp 18 18 18 B/P (MAP) 112/68 (83) 76/38 97/53 Pulse Ox 98 97 94 94 O2 Delivery Room Air Room Air Room Air Room Air 01/19/21 01/19/21 01/19/21 01/19/21 14:17 14:31 14:47 14:57 Pulse 95 95 99 105 B/P (MAP) 109/57 (74) 86/46 (59) 85/46 (59) 83/50 (61) Pulse Ox 97 96 97 97 01/19/21 01/19/21 01/19/2101/19/21 14:58 15:00 15:16 16:16 Temp 98.2 98.2 Pulse 98 98 87 82 Resp 16 B/P (MAP) 97/47 (64) 89/56 (67) 92/40 (57) 87/52 (64) Pulse Ox 97 97 95 94 O2 Delivery Room Air 01/19/21 01/19/21 01/19/21 01/19/21 16:53 17:17 19:25 20:15 Temp 98.2 98.2 Pulse 80 88 78 Resp 18 B/P (MAP) 97/52 (67) 95/48 (64) 84/45 (58) Pulse Ox 95 95 95 O2 Delivery Room Air Room Air 01/19/21 01/19/21 01/19/21 01/19/21 20:22 20:23 20:24 20:39 B/P (MAP) 71/23 (39) 77/23 (41) 86/26 (46) Pulse Ox 96 O2 Delivery Room Air 01/19/21 01/19/21 01/19/21 01/19/21 21:01 21:18 21:34 22:12 Pulse 94 78 B/P (MAP) 96/39 (58) 94/36 94/36 (55) 94/35 (54) 01/19/21 01/19/21 01/19/21 01/20/21 23:04 23:30 23:35 00:20 Temp 98.2 98.2 Pulse 77 103 95 80 Resp 18 B/P (MAP) 117/46 (69) 88/35 (52) 94/35 (54) 90/50 (63) Pulse Ox 96 O2 Delivery Room Air 01/20/21 01/20/21 01/20/21 01/20/21 00:49 00:49 01:05 02:06 Pulse 77 77 70 78 B/P (MAP) 85/33 85/33 (50) 93/37 (55) 113/31 (58) 01/20/21 01/20/21 01/20/21 01/20/21 03:02 06:18 06:50 07:20 Temp 98.4 98.4 Pulse 64 68 Resp 18 B/P (MAP) 106/43 (64) 114/43 (66) Pulse Ox 96 97 O2 Delivery Room Air Room Air Room Air 01/20/21 01/20/21 01/20/21 01/20/21 07:45 08:32 09:33 10:12 Temp 98.6 98.6 98.6 98.6 Pulse 81 77 Resp 18 18 B/P (MAP) 106/43 (64) 139/64 (89) Pulse Ox 96 96 O2 Delivery Room Air Room Air Room Air Room Air Intake and Output 01/19/21 01/19/21 01/20/21 15:00 23:00 07:00 Intake Total 450 ml 600 ml 1540 ml Output Total 100 ml 850 ml 650 ml Balance 350 ml -250 ml 890 ml Images MRI of the Brain without and with Contrast 01/19/2021 Clinical History: Altered mental status.. Technique: Unenhanced T1-weighted sagittal axial and coronal and FLAIR sagittal and axial and T2-weighted, gradient echo and diffusion-weighted axial images of the brain were obtained. After the intravenous administration of 18.8 cc of Clariscan, enhanced T1-weighted axial and coronal images of the brain were obtained. Findings: The ventricles and sulci are within normal limits in size and configuration. The ventricles and sulci are within normal limits in size and configuration. Patchy and a few small scattered areas of increased signal intensity are seen within the periventricular and subcortical white matter of both cerebral hemispheres on the FLAIR and T2-weighted images consistent most likely with areas of very mild small vessel ischemic disease. No acute parenchymal ab normality is seen. No extra-axial fluid collection is noted. No area of abnormal contrast enhancement is seen. There is no MRI evidence of acute ischemia/infarction. Mild mucosal thickening is seen scattered throughout the ethmoid air cells bilaterally. There are are minimal bilateral mastoid effusions. Normal flow voids are seen within the major vascular structures surrounding the brain parenchyma. IMPRESSION: No acute parenchymal abnormality is seen. Justicifation of Admission Dx: Justifications for Admission: Justification of Admission Dx: N/A JULIETA BRONSON MD January 20, 2021 10:55
[2021-01-20] MEDS: VANCOMYCIN PER PHARMACY MC PRN (11:58)
--- NOTE | 2021-01-20 12:56 | PN ---
DATE: 01/20/2021 SUBJECTIVE: The patient is resting, slightly propped up in bed, in no apparent respiratory distress. She is definitely more awake, alert. She apparently had episode of hypotension yesterday. In fact, her blood pressure was low in the 70s for which she received IV fluid. She was afebrile throughout this time. PHYSICAL EXAMINATION: GENERAL: When I examined her this morning, she looked well and was clearly in no apparent respiratory distress. She was pale, not jaundice, cyanosed, or thyromegaly. No jugular distention. No limb edema. VITAL SIGNS: Her heart rate was 81, blood pressure is 106/43, temperature was 98, respiratory rate was 18 and oxygen saturation was 96%. HEAD, EYES, EARS, NOSE AND THROAT: Normocephalic, atraumatic. NECK: Supple. HEART: Normal first and second heart sounds, no gallop, murmur. CHEST: Clear to auscultation, no crepitation or rhonchi. ABDOMEN: Distended, soft with a colostomy and suprapubic catheter in place. There is no guarding or rigidity. No organomegaly. All hernial orifice intact. Bowel sounds normal. NEUROLOGIC: She is awake, alert, responding appropriately. Cranial nerves intact. She moves upper extremities without difficulty. She has paraplegia with neurogenic bladder and bowel and the cellulitis of the right foot has completely resolved. Her intake over the last 24 hours was 1040, output 2450. LABORATORY DATA: Her chemistry this morning showed a serum sodium 145, potassium 3.4, chloride 112, bicarbonate 19, anion gap of 14, BUN 4, creatinine 0.5. Estimated GFR was 132 mL per minute. Her glucose was 110, calcium was 8. Her white cell count was 11,500, hemoglobin 11, hematocrit 33, MCV 92 and platelet count 282,000. The coronavirus by PCR was negative. Her blood cultures are so far negative and urine culture is still pending at the time of this dictation. ASSESSMENT: 1. Altered mental status, improving. 2. Left foot cellulitis that has resolved. She continues to be on Unasyn. 3. Hyponatremia has resolved. 4. Transverse myelitis with paraplegia, neurogenic bowel and bladder. PLAN: To continue with IV antibiotic. The patient was started on IV saline with 40 mEq of potassium chloride. Her potassium is slightly up today at 3.4. We will continue with IV antibiotic. Continue with IV fluid, continue with all her other medication. Vancomycin was added. KATIE DR: Jon TID: [id number]
[2021-01-20] MEDS: ACETAMINOPHEN 500 MG TABLET PO PRN (13:40)
--- NOTE | 2021-01-20 14:48 | NUR ---
SS following up with discharge planning. SS reviewed pt chart and discussed with pt RN. Pt is LTC resident from [facility], ; fax [phone]. Pt is currently on room air. Pt on IV Ampicillin. SS phoned and faxed clinical updates to [facility]. SS will continue to follow for discharge planning.
[2021-01-20] MEDS: QUEtiapine 300 MG TAB.ER.24H. PO SCH (20:43)
[2021-01-20] MEDS: DOXEPIN HCL 25 MG CAPSULE. PO SCH (20:44)
[2021-01-20] MEDS: TERAZOSIN 1 MG CAPSULE. PO SCH (21:00)
[2021-01-21] MEDS: AMPICILLIN/SULBACTAM 3 GM in IV NORMAL SALINE 100ML 100 ML IV SCH ×3 (00:25→11:54)
[2021-01-21 00:28] VITALS: BP 99/46
[2021-01-21 02:56] VITALS: BP 107/41
[2021-01-21 05:31] LABS: HEMATOCRIT 27.7 % (36.0-47.0); HEMOGLOBIN 9.1 g/dL (12.0-15.5); RED BLOOD COUNT 2.95 x10^6/uL (3.50-5.40); RED CELL DISTRIBUTION WIDTH 15.7 % (11.5-14.5); WHITE BLOOD COUNT 4.6 x10^3/uL (4.0-11.0)
[2021-01-21] MEDS: LEVOTHYROXINE 75 MCG TABLET PO SCH (06:04)
[2021-01-21] MEDS: METOCLOPRAMIDE 10 MG TABLET. PO SCH ×2 (06:05→11:54)
[2021-01-21] MEDS: SUCRALFATE 1 GM TABLET. PO SCH ×2 (06:05→11:54)
[2021-01-21 06:06] LABS: ALBUMIN 3.1 g/dL (3.4-5.0); ALBUMIN/GLOBULIN RATIO 1.5 (1.0-1.7); CALCIUM 8.1 mg/dL (8.5-10.1); CREATININE 0.6 mg/dL (0.6-1.0); GFR 107.6; POTASSIUM 3.9 mmol/L (3.5-5.1); TOTAL BILIRUBIN 0.2 mg/dL (0.2-1.0); TOTAL PROTEIN 5.2 g/dL (6.4-8.2)
[2021-01-21] MEDS: PANTOPRAZOLE 40 MG TABLET.DR. PO SCH (06:06)
[2021-01-21] MEDS: VANCOMYCIN PER PHARMACY MC PRN ×2 (06:43→11:52)
--- NOTE | 2021-01-21 06:44 | NUR ---
Pharmacy Vancomycin Dosing Note S:Consulted to monitor and dose vancomycin started 01/18/21. O:CAESAR AVALOS is a 45 year old F with Cellulitis UTI . Height: 5 feet, 1 inches Weight: 97.6 kg Carter Body Weight: 47.80 Adjusted Body Weight: 67.72 Dosing Weight: Actual Other Antibiotics: UNASYN LABS: Last BUN: 6 Last Creatinine: 0.6 Creatinine Clearance: >100 mL/min Last WBC: 4.6 Last Procalcitonin: Tmax (past 24 hours): 98.2 Microbiology: 01/18 Blood: No growth I/O: 2590/1600 Drug Levels: Last Trough level: 24.0 on 01/21/21 at 0500 Last dose given 01/20/21 at 0504 Vancomycin Dosing: Loading Dose: x1 Dosing Weight: Actual Target Trough: 10-20 A: Based on: ELEVATED VANCOMYCIN TROUGH P: 1. HOLD FURTHER Vancomycin DOSING PENDING RANDOM LEVEL TOMORROW AM 2. Follow up Random level on 01/22/21 at 0530 3. Pharmacy will continue to monitor, follow and adjust therapy as needed. JESSICA HONEYCUTT RPH, 01/21/21 0638
[2021-01-21 07:00] VITALS: BP 99/48
--- NOTE | 2021-01-21 07:57 | PDOC ---
Infectious Disease Note Subjective: Subjective Patient without complaints Discharge was held yesterday as BP was running on the lower side Vital Signs: Vital Signs Vital Signs Date Time Temp Pulse Resp B/P (MAP) Pulse Ox O2 Delivery O2 Flow Rate FiO2 01/21/21 07:00 97.7 75 18 99/48 (65) 98 Room Air 97.7 Physical Exam: PHYSICAL EXAM GENERAL: Alert, awake female in no acute distress. HEENT: Normocephalic, atraumatic. Anicteric. Oral mucosa moist. NECK: Supple. LUNGS: Clear. HEART: S1, S2. ABDOMEN: Soft, obese. Bowel sounds present. Ostomy in place. Suprapubic catheter site in place. CHEST WALL: Right Port-A-Cath site clean. EXTREMITIES: Right great toe abrasion present with some skin breakdown. No purulence, no fluctuance. Dorsalis pedis palpable. DERMATOLOGIC: No generalized rash. Chronic wounds on the buttock noted, not infected. CENTRAL NERVOUS SYSTEM: Paraplegia. NEUROLOGIC: Alert, awake. Upper extremity strength noted. PSYCHIATRIC: Calm and cooperative. Portacath site clean Medications: Inpatient Meds: Medications reviewed. Labs: Lab Laboratory Tests Test 01/21/21 04:30 01/21/21 05:00 White Blood Count 4.6 x10^3/uL (4.0-11.0) Red Blood Count 2.95 x10^6/uL (3.50-5.40) Hemoglobin 9.1 g/dL (12.0-15.5) Hematocrit 27.7 % (36.0-47.0) Mean Corpuscular Volume 94 fL (79-100) Mean Corpuscular Hemoglobin 31 pg (25-35) Mean Corpuscular Hemoglobin Concent 33 g/dL (31-37) Red Cell Distribution Width 15.7 % (11.5-14.5) Platelet Count 197 x10^3/uL (140-400) Sodium Level 151 mmol/L (136-145) Potassium Level 3.9 mmol/L (3.5-5.1) Chloride Level 117 mmol/L (98-107) Carbon Dioxide Level 22 mmol/L (21-32) Anion Gap 12 (6-14) Blood Urea Nitrogen 6 mg/dL (7-20) Creatinine 0.6 mg/dL (0.6-1.0) Estimated GFR (Cockcroft-Gault) 107.6 BUN/Creatinine Ratio 10 (6-20) Glucose Level 86 mg/dL (70-99) Calcium Level 8.1 mg/dL (8.5-10.1) Total Bilirubin 0.2 mg/dL (0.2-1.0) Aspartate Amino Transf (AST/SGOT) 13 U/L (15-37) Alanine Aminotransferase (ALT/SGPT) 15 U/L (14-59) Alkaline Phosphatase 252 U/L (46-116) Total Protein 5.2 g/dL (6.4-8.2) Albumin 3.1 g/dL (3.4-5.0) Albumin/Globulin Ratio 1.5 (1.0-1.7) Vancomycin Level Trough 24.0 mcg/mL (10.0-20.0) Vancomycin Last Dose Date 01/20/21 Vancomycin Last Dose Time 1700 Objective: Assessment: 1. History of enterococcal bacteremia, on ampicillin prior to admission from [facility]. She was on ampicillin 12 gm daily Faxed medical records from Dr. Westley BAIN MD from [facility] reviewed Blood cultures positive on 01/06/2021 at [facility] Repeat blood cultures negative from 01/07/2021 at [facility] TTE did not get a great view of all the valves. No clear evidence of vegetation. Clinical suspicion for endocarditis was low per Dr. Cabrera. Hold on IAN Approximately 2 weeks after completion of antibiotic therapy, they plan to do 2 sets of blood culture to ensure bloodstream remains clear of bacteremia. Patient was discharged on ampicillin 12 g IV every 24 via continuous infusion Blood cultures here remain negative 2. Pyuria SPC changed urine culture negative here 3. Right great toe wound with right lower extremity cellulitis with underlying chronic edema at [facility] from injury Injury to great toe from shower December 31, 2020 Stable here No evidence of infection at this time 4. 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 5. Anxiety and depression. 6. HISTORY OF ALLERGY TO DOXYCYCLINE WITH ITCHING. 7. Migraine. Encephalopathy ,improved, ct head neg,likely metabolic, MRI of brain noted 8. Gastroesophageal reflux disease. 9. Neurogenic bowel and bladder with ostomy in place and suprapubic catheter. 10. Bipolar disorder 11. History of PTSD Plan: Plan of Care Plans are for discharge to nursing facility today Continue IV ampicillin 12 GM continuous infusion for at least 7 more days Patient to continue follow-up with Dr. Cabrera at [facility] as scheduled Final duration of treatment for enterococcus bacteremia per Dr. Cabrera Discussed with Dr. Rodrigues Discussed with nursing staff RITA AVILA MD January 21, 2021 07:57
[2021-01-21] MEDS: THIAMINE IM 200 MG/2 ML VIAL. IM SCH (08:00)
[2021-01-21] MEDS: BUDESONIDE 0.5 MG/2 ML NEBU. NEB SCH (08:20)
[2021-01-21] MEDS: IPRATRPIUM/ALBUTEROL 0.5/2.5MG 3 ML NEBU. NEB SCH (08:20)
[2021-01-21] MEDS: OXcarbazepine 300 MG TABLET PO SCH (09:07)
[2021-01-21] MEDS: LACTOBACILLUS RHAMNOSUS GG 1 CAPSULE. PO SCH (09:07)
[2021-01-21] MEDS: FERROUS SULFATE 325 MG TABLET. PO SCH (09:07)
[2021-01-21] MEDS: ASCORBIC ACID 500 MG TABLET PO SCH (09:07)
[2021-01-21] MEDS: GABAPENTIN 300 MG CAPSULE. PO SCH ×2 (09:07→14:17)
[2021-01-21] MEDS: SENNOSIDES 8.6 MG TABLET PO SCH (09:07)
[2021-01-21] MEDS: MIRABEGRON 25 MG TAB.ER.24H PO SCH (09:07)
[2021-01-21] MEDS: MULTIVITAMIN with MINERAL TABLET. PO SCH (09:07)
[2021-01-21] MEDS: OXYBUTYNIN CHLORIDE 5 MG TABLET PO SCH ×2 (09:07→14:17)
[2021-01-21] MEDS: FOLIC ACID 1 MG TABLET. PO SCH (09:07)
[2021-01-21] MEDS: SERTRALINE 50 MG TABLET. PO SCH (09:07)
[2021-01-21] MEDS: CALCIUM CARBONATE 500 MG TAB.CHEW PO SCH ×2 (09:07→14:17)
[2021-01-21] MEDS: FAMOTIDINE 20 MG TABLET. PO SCH (09:08)
[2021-01-21] MEDS: MORPHINE ER 30 MG TABLET.ER PO SCH ×2 (09:08→14:17)
[2021-01-21] MEDS: TOPIRAMATE 25 MG TABLET. PO SCH (09:10)
[2021-01-21] MEDS: ZINC OXIDE 20% TOPICAL OINTMENT 28GM TUBE. TP SCH (09:10)
--- NOTE | 2021-01-21 09:10 | PN ---
DATE: 01/21/2021 SUBJECTIVE: The patient is resting, slightly propped up in bed, in no apparent respiratory distress. On questioning her, she denied any complaint. Nursing staff did not voice any concern. She was seen yesterday by the infectious specialist, recommended that she can be discharged. Unfortunately, she has episodes of hypotension, was treated with IV fluid in the form of normal saline. Unfortunately, her sodium this morning was up to 151. PHYSICAL EXAMINATION: GENERAL: When I examined her, she was pale, no jaundice, cyanosis, no lymphadenopathy, no thyromegaly, no jugular venous distention, no lower limb edema. VITAL SIGNS: Her heart rate was 75, blood pressure was 99/48, temperature was 97.7, respiratory rate was 18 and oxygen saturation was 98% on room air. HEAD, EYES, EARS, NOSE AND THROAT: Normocephalic, atraumatic. NECK: Supple. HEART: Showed normal first and second heart sounds, no gallop, rub or murmur. CHEST: Clear to auscultation, no crepitation or rhonchi. ABDOMEN: Distended, soft, nontender. She has a colostomy as well as suprapubic catheter in place. There is no tenderness. No guarding or rigidity. No organomegaly. All hernial orifice intact. Bowel sounds normal. NEUROLOGIC: She is awake, alert, responding appropriately. Cranial nerves intact. She moves upper extremities without difficulty. She has paraplegia with neurogenic bladder and bowel. Her intake was 2600, output was 1600. LABORATORY DATA: As of this morning, her serum sodium was 151, potassium 3.9, chloride 117, bicarbonate 22, anion gap of 12, BUN 6, creatinine 0.6. Estimated GFR was 170 mL per minute. Her glucose was 86, calcium was 8.1. Total bilirubin, AST, ALT were normal. Alkaline phosphatase slightly elevated. Total protein 5.2, albumin 3.1 and her white cell count was 4600, hemoglobin 9, hematocrit 27, MCV 94 and platelet count of 197,000. Urinalysis essentially unremarkable. Her blood cultures showed no growth after 2 days and her urine culture has grown 3 or more organisms, isolated results are consistent with colonization and/or contamination during the collection process. ASSESSMENT: 1. Altered mental status, improving. 2. Left foot cellulitis that has resolved. She did grow Enterococcus faecalis while at [facility] for which she was treated with IV ampicillin 12 grams daily. 3. Hyponatremia, resolved. In fact, she has hypernatremia. 4. Transverse myelitis with paraplegia, neurogenic bladder and bowel. PLAN: Plan is to discontinue the normal saline, start her on IV D5W, increase water flushes, will repeat her lab works again and if the sodium normalize, we can discharge her to [facility] in [place]. S[address]NCHEZ DR: Jon TID: [id number]
[2021-01-21] MEDS: TRIAMCINOLONE ACETONIDE 0.1% TOPICAL OINTMENT 15GM TUBE. TP SCH (09:11)
[2021-01-21] MEDS: VITS A & D/LANOLIN TOPICAL OINTMENT 42GM TUBE. TP SCH (09:11)
[2021-01-21] MEDS: NYSTATIN 100,000 UNIT/GM TOPICAL CREAM 15GM TUBE. TP SCH ×2 (09:12→13:00)
[2021-01-21 11:00] VITALS: BP 104/56
[2021-01-21 14:05] LABS: CALCIUM 8.4 mg/dL (8.5-10.1); CREATININE 0.7 mg/dL (0.6-1.0); GFR 90.1; POTASSIUM 3.3 mmol/L (3.5-5.1)
[2021-01-21 15:00] VITALS: BP 102/45
--- NOTE | 2021-01-21 17:01 | NUR ---
Pt discharged to [facility]. Report given to Anh. Wound dressings changed and pics taken. Belongings packed. Pt assisted to stretcher and was taken by EMS
[2021-01-22] MEDS ORDERED: VANCOMYCIN RANDOM LEVEL. MC ONE (05:30)
[2021-01-25] MEDS ORDERED: ERGOCALCIFEROL (VITAMIN D2) 50,000 UNIT CAPSULE. PO SCH ×2 (09:00)
== END 2021-01-21 17:04 | DRG 602 ==
LOC: ER 22:28 → 2 NORTH 01-18 02:33 → 4 NORTH 01-18 07:25 → OBSVTOIN 01-18 12:51
PROVIDERS: ADMIT Internal Medicine; ATTEND Internal Medicine
DX: L03.116 Cellulitis of left lower limb (principal); G93.41 Metabolic encephalopathy; N39.0 Urinary tract infection, site not specified; E87.0 Hyperosmolality and hypernatremia; E87.1 Hypo-osmolality and hyponatremia; K59.2 Neurogenic bowel, not elsewhere classified; M62.82 Rhabdomyolysis; G37.3 Acute transverse myelitis in demyelinating disease of central nervous system; G82.21 Paraplegia, complete; L03.115 Cellulitis of right lower limb; D64.9 Anemia, unspecified; F03.90 Unspecified dementia, unspecified severity, without behavioral disturbance, psychotic disturbance, mood disturbance, and anxiety; F31.9 Bipolar disorder, unspecified; F43.10 Post-traumatic stress disorder, unspecified; F60.3 Borderline personality disorder; G43.909 Migraine, unspecified, not intractable, without status migrainosus; G89.4 Chronic pain syndrome; J45.909 Unspecified asthma, uncomplicated; K21.9 Gastro-esophageal reflux disease without esophagitis; N31.9 Neuromuscular dysfunction of bladder, unspecified; Z93.3 Colostomy status; Z98.84 Bariatric surgery status; E66.01 Morbid (severe) obesity due to excess calories; F41.8 Other specified anxiety disorders; B95.2 Enterococcus as the cause of diseases classified elsewhere
CPT/HCPCS: 36415; 70553; 71045; 80048; 80053; 80202; 81001; 83605; 85007; 85025; 85027; 87040; 87086; 87426; 94640; 94760; 96374; A9575; G0378; G0379; J0295; J0696; J2250; J2405; J2704; J3370; J3411; J3480; J7030; J7040; J7050; U0003; 99285-25; J7626

== ENCOUNTER 2021-06-08 19:46 | Inpatient (IN) | payer BC, MEDICARE, MEDICAID ==
[~2021-06-08] VITALS: Ht 154.9 cm; Wt 101.0 kg
[~2021-06-08 19:46] MED LIST changes: +ACET500T68 PO; +ALBU2.5V8 IH; +ASCO500C PO; +CALC500T31 PO; +CETI10TA16 PO; +DIPH25TA24 PO; +HYDR453. TP; +IPRA3AMP29 NEB; +LACT1CAP6 PO; +LIDODERM 5% TP; +METO10TA81 PO; +MIDO10TA PO; +MIRA25TA PO; +MORP30TA83 PO; +MULT-238 PO; +NYST15CR TP; +ONDA4TAB12 PO; +OXYB5TAB10 PO; +OXYC10TA PO; +PANT40TA77 PO; +PETR113O TP; +QUET300T5 PO; +SERT100T PO; +SUCR1TAB PO; +SUMA100T3 PO; +TIZA4TAB2 PO; +TOPI25TA52 PO; +TRIA15OI TP; +ZINC56CR2 TP
--- NOTE | 2021-06-08 21:19 | ED.ADGEN ---
Past Medical History Past Medical History: Anxiety, Asthma, Bipolar, GERD Additional Past Medical Histor: BLADDER DISFUNCTION, LAC OF LIVER, CELLULITIS, PTSD, PARAPLEGIA, Past Surgical History: Other Smoking Status: Never Smoker Alcohol Use: None General Adult EDM: Chief Complaint: HEADACHE HPI: HPI: Patient is a 46 year old female coming in from nursing facility for migraine. Has had a headache for the past 2 days and is not responding to her triptan medication. Patient patient is a history of migraines and it has been a couple of years since she has had to be treated in the emergency department for them. Says it is on her right jew and behind her right eye and sometimes radiates t o the left jew. Is complaining of photophobia. Denies any neck stiffness or vision changes. Says is similar to her previous headaches except for that is not going away. Patient was tested at her facility for COVID-19 with a rapid test which was negative. Patient was afebrile on report but has a temperature of 101 here. Review of Systems: Review of Systems: All other systems within normal limits except for as noted in the HPI Current Medications: Current Medications Medications (Trade) Dose Ordered Sig/Memo Start Time Stop Time Status Last Admin Dose Admin Acetaminophen (Tylenol) 1,000 mg 1X ONCE 06/08/21 23:30 06/08/21 23:31 DC 06/08/21 23:37 1,000 MG Cefepime HCl (Maxipime) 1 gm 1X ONCE 06/08/21 23:00 06/08/21 23:01 DC 06/08/21 23:01 1 GM Diphenhydramine HCl (Benadryl) 50 mg 1X ONCE 06/08/21 21:30 06/08/21 21:31 DC 06/08/21 22:05 50 MG Info (CONTRAST GIVEN -- Rx MONITORING) 1 each PRN DAILY PRN 06/08/21 23:45 06/10/21 23:44 Iohexol (Omnipaque 300 Mg/ml) 75 ml 1X ONCE 06/08/21 23:45 06/08/21 23:46 DC 06/09/21 00:14 75 ML Ketorolac Tromethamine (Toradol 30mg Vial) 30 mg 1X ONCE 06/08/21 21:30 06/08/21 21:31 DC 06/08/21 22:04 30 MG Prochlorperazine Edisylate (Compazine) 10 mg 1X ONCE 06/08/21 21:30 06/08/21 21:31 DC 06/08/21 22:05 10 MG Sodium Chloride 1,000 ml @ 1,000 mls/hr 1X ONCE 06/09/21 01:15 06/09/21 02:14 06/09/21 01:43 1,000 MLS/HR Vancomycin HCl 2 gm/Sodium Chloride 500 ml @ 250 mls/hr 1X ONCE 06/08/21 23:00 06/09/21 00:59 DC 06/08/21 23:01 250 MLS/HR Allergies: Allergies: Allergies Coded Allergies Type Severity Reaction Last Updated Verified [id number] Antimigraine Agents Allergy Intermediate 01/18/21 Yes doxycycline Allergy Intermediate Itching 01/18/21 Yes eletriptan Allergy Intermediate Itching 01/18/21 Yes hydromorphone Allergy Intermediate 01/18/21 Yes meperidine Allergy Intermediate Itching 01/18/21 Yes nalbuphine Allergy Intermediate Itching 01/18/21 Yes rizatriptan Allergy Intermediate 01/18/21 Yes tramadol Allergy Intermediate 01/18/21 Yes Physical Exam: PE: Constitutional: Well developed, well nourished, no acute distress, non-toxic appearance. [] HENT: Normocephalic, atraumatic, bilateral external ears normal, nose normal. [] Eyes: PERRLA, conjunctiva normal, no discharge. [] Neck: No rigidity, supple, no stridor. [] Cardiovascular: Regular rate and rhythm, brisk cap refill [] Lungs & Thorax: Non labored symmetric respirations, no tachypnea or respiratory distress [] Abdomen: Soft, nondistended. Skin: Warm, dry, no erythema, no rash. [] Back: Unremarkable Extremities: No deformities, range of motion grossly intact, no lower extremity edema [] Neurologic: Alert and oriented X 3, no focal deficits noted. [] Psychologic: Affect normal, judgement normal, mood normal. [] Current Patient Data: Labs: Laboratory Tests Test 06/08/21 21:55 06/08/21 22:20 06/09/21 00:35 White Blood Count 28.8 x10^3/uL (4.0-11.0) H Red Blood Count 4.48 x10^6/uL (3.50-5.40) Hemoglobin 13.8 g/dL (12.0-15.5) Hematocrit 40.4 % (36.0-47.0) Mean Corpuscular Volume 90 fL (79-100) Mean Corpuscular Hemoglobin 31 pg (25-35) Mean Corpuscular Hemoglobin Concent 34 g/dL (31-37) Red Cell Distribution Width 14.4 % (11.5-14.5) Platelet Count 345 x10^3/uL (140-400) Neutrophils (%) (Auto) 91 % (31-73) H Lymphocytes (%) (Auto) 3 % (24-48) L Monocytes (%) (Auto) 5 % (0-9) Eosinophils (%) (Auto) 0 % (0-3) Basophils (%) (Auto) 1 % (0-3) Neutrophils # (Auto) 26.3 x10^3/uL (1.8-7.7) H Lymphocytes # (Auto) 0.8 x10^3/uL (1.0-4.8) L Monocytes # (Auto) 1.5 x10^3/uL (0.0-1.1) H Eosinophils # (Auto) 0.0 x10^3/uL (0.0-0.7) Basophils # (Auto) 0.2 x10^3/uL (0.0-0.2) Segmented Neutrophils % 92 % (35-66) H Band Neutrophils % 4 % (0-9) Lymphocytes % 2 % (24-48) L Monocytes % 2 % (0-10) Platelet Estimate Adequate (ADEQUATE) Sodium Level 136 mmol/L (136-145) Potassium Level 4.1 mmol/L (3.5-5.1) Chloride Level 100 mmol/L (98-107) Carbon Dioxide Level 22 mmol/L (21-32) Anion Gap 14 (6-14) Blood Urea Nitrogen 5 mg/dL (7-20) L Creatinine 0.8 mg/dL (0.6-1.0) Estimated GFR (Cockcroft-Gault) 76.9 BUN/Creatinine Ratio 6 (6-20) Glucose Level 130 mg/dL (70-99) H Lactic Acid Level 3.3 mmol/L (0.4-2.0) H Calcium Level 8.7 mg/dL (8.5-10.1) Phosphorus Level 4.0 mg/dL (2.6-4.7) Magnesium Level 2.1 mg/dL (1.8-2.4) Total Bilirubin 0.5 mg/dL (0.2-1.0) Aspartate Amino Transferase (AST) 51 U/L (15-37) H Alanine Aminotransferase (ALT) 32 U/L (14-59) Alkaline Phosphatase 277 U/L (46-116) H Total Protein 6.9 g/dL (6.4-8.2) Albumin 3.3 g/dL (3.4-5.0) L Albumin/Globulin Ratio 0.9 (1.0-1.7) L Influenza Type A Antigen Negative (NEGATIVE) Influenza Type B Antigen Negative (NEGATIVE) SARS-CoV-2 Antigen (Rapid) Negative (NEGATIVE) Urine Collection Type U cath Urine Color Yellow Urine Clarity Cloudy Urine pH 6.0 (<5.0-8.0) Urine Specific [place] >=1.030 (1.000-1.030) Urine Protein 30 mg/dL (NEG-TRACE) Urine Glucose (UA) Negative mg/dL (NEG) Urine Ketones (Stick) Negative mg/dL (NEG) Urine Blood Small (NEG) Urine Nitrite Positive (NEG) Urine Bilirubin Negative (NEG) Urine Urobilinogen Dipstick 0.2 mg/dL (0.2 mg/dL) Urine Leukocyte Esterase Large (NEG) Urine RBC Occ /HPF (0-2) Urine WBC Tntc /HPF (0-4) Urine Bacteria Many /HPF (0-FEW) Urine Hyaline Casts Few /HPF Urine Mucus Mod /LPF Laboratory Tests 06/08/21 21:55 Laboratory Tests 06/08/21 21:55 Vital Signs: Vital Signs Date Time Temp Pulse Resp B/P (MAP) Pulse Ox O2 Delivery O2 Flow Rate FiO2 06/08/21 23:21 100.6 108 20 96 100.6 06/08/21 19:49 121/64 (83) Room Air EKG: EKG: [] Heart Score: C/O Chest Pain: No Risk Factors: Risk Factors: DM, Current or recent (<one month) smoker, HTN, HLP, family history of CAD, obesity. Risk Scores: Score 0 - 3: 2.5% MACE over next 6 weeks - Discharge Home Score 4 - 6: 20.3% MACE over next 6 weeks - Admit for Clinical Observation Score 7 - 10: 72.7% MACE over next 6 weeks - Early Invasive Strategies Radiology/Procedures: Radiology/Procedures: [facility] [address] [place] [address] IMAGING REPORT Signed PATIENT: CAESAR AVALOS ACCOUNT: [id number] : 1975 LOCATION: ER AGE: 46 SEX: F EXAM STATUS: REG ER ORD. PHYSICIAN: NICHOLAS ARRIETA MD REASON: sepsis, sacral wounds, OMNI 300 75 ML IV PROCEDURE: CT CHEST ABD PELVIS W/CONTRAST CT CHEST+ABD+PELVIS W History: Sepsis. Sacral wound. Technique: CT of the chest, abdomen and pelvis were performed with intravenous contrast. Coronal and sagittal reconstructions were performed. Exposure: One or more of the following individualized dose reduction techniques were utilized for this examination: 1. Automated exposure control 2. Adjustment of the mA and/or kV according to patient size 3. Use of iterative reconstruction technique. Comparison: January 12 Findings: Chest: No pathologic lymphadenopathy. Multifocal ground glass opacities bilaterally most prominent within the lower lobes and right middle lobe. No pleural effusion. No pneumothorax. 2 mm left upper lobe pulmonary nodule (series 2 image 20), unchanged. Finding likely benign given stability over time. Abdomen and pelvis: Hepatic steatosis. Enlarged liver. The spleen, and adrenal glands are unremarkable. Prior cholecystectomy small pneumobilia. No biliary ductal dilatation. Fatty infiltration of the pancreas, unchanged. Postoperative changes gastric bypass. Left inferior renal nonobstructing calculus. No hydronephrosis. Decompressed urinary bladder with suprapubic catheter. Postoperative changes within the region of the urethra with hyperdense material. Postoperative changes partial colectomy with right mid abdominal colostomy. Appendix not well seen. No evidence of bowel obstruction. No pathologic lymphadenopathy. No ascites. Postoperative changes partial sacral resection with bandlike infiltration of the adjacent soft tissues extending inferiorly and extending to the cutaneous surface and multiple points. There is extension along the posterior aspect of the perirectal region. No subcutaneous gas. No abscess. Additional infiltration of the left gluteal region. Additional deformity of the right ischial tuberosity. Bones: Mild rightward curvature of the thoracic spine. Impression: Chest CT: 1. Multifocal ground glass opacities bilaterally, may represent infectious or inflammatory process including viral pneumonia. Abdomen and pelvis CT: 1. Postoperative changes within the region of the sacrum and pelvis with bandlike infiltration of the posterior gluteal and sacral soft tissues, may relate to scarring or inflammation. No abscess. 2. Nonobstructing left intrarenal calculus. Electronically signed by: Bill Forte DO (06/09/2021 12:30 AM) [facility] DICTATED and SIGNED BY: BILL FORTE DO DATE: 06/09/21 [id number] [] Course & Med Decision Making: Course & Med Decision Making Pertinent Labs and Imaging studies reviewed. (See chart for details) Patient meeting sepsis criteria, multiple sources found on work-up including viral pneumonia of lungs, soft tissue inflammation around sacral wound, and urinary tract infection. Treated with broad-spectrum antibiotics and fluids. Will admit to her primary care provider Dr. Rodrigues [] [place] Disclaimer: Araceli Disclaimer: This electronic medical record was generated, in whole or in part, using a voice recognition dictation system. Departure Departure Impression: Primary Impression: Migraine Additional Impressions: Catheter-associated urinary tract infection Sepsis Viral pneumonia Disposition: ADMITTED INPATIENT Admitting Physician: Ravi. Dian Condition: STABLE Referrals: DIAN RODRIGUES MD (PCP) Problem Qualifiers NICHOLAS ARRIETA MD Jun 08, 2021 21:19
[2021-06-08] MEDS ORDERED: PROCHLORPERAZINE 10 MG/2 ML VIAL. IV ONE (21:30)
[2021-06-08] MEDS ORDERED: KETOROLAC 30 MG/ML VIAL. IVP ONE (21:30)
[2021-06-08] MEDS ORDERED: IV NORMAL SALINE 1000ML BAG 1,000 ML IV ONE (21:30)
[2021-06-08] MEDS ORDERED: diphenhydrAMINE 50 MG/ML VIAL IVP ONE (21:30)
[2021-06-08 22:06] LABS: BASO # 0.2 x10^3/uL (0.0-0.2); BASO % 1 % (0-3); EOS % 0 % (0-3); HEMATOCRIT 40.4 % (36.0-47.0); HEMOGLOBIN 13.8 g/dL (12.0-15.5); LYMPH # 0.8 x10^3/uL (1.0-4.8); LYMPH % 3 % (24-48); MEAN CORPUSCULAR HEMOGLOBIN 31 pg (25-35); MEAN CORPUSCULAR HGB CONC 34 g/dL (31-37); MEAN CORPUSCULAR VOLUME 90 fL (79-100); MONO # 1.5 x10^3/uL (0.0-1.1); MONO % 5 % (0-9); NEUT # 26.3 x10^3/uL (1.8-7.7); NEUT % 91 % (31-73); PLATELET COUNT 345 x10^3/uL (140-400); RED BLOOD COUNT 4.48 x10^6/uL (3.50-5.40); RED CELL DISTRIBUTION WIDTH 14.4 % (11.5-14.5); WHITE BLOOD COUNT 28.8 x10^3/uL (4.0-11.0)
[2021-06-08 22:18] LABS: CALCIUM 8.7 mg/dL (8.5-10.1); CREATININE 0.8 mg/dL (0.6-1.0); GFR 76.9; POTASSIUM 4.1 mmol/L (3.5-5.1)
[2021-06-08 22:23] LABS: ALBUMIN 3.3 g/dL (3.4-5.0); ALBUMIN/GLOBULIN RATIO 0.9 (1.0-1.7); MAGNESIUM 2.1 mg/dL (1.8-2.4); TOTAL BILIRUBIN 0.5 mg/dL (0.2-1.0); TOTAL PROTEIN 6.9 g/dL (6.4-8.2)
[2021-06-08 22:52] LABS: INFLUENZA A PATIENT NEGATIVE (NEGATIVE); INFLUENZA B PATIENT NEGATIVE (NEGATIVE)
[2021-06-08] MEDS ORDERED: CEFEPIME HCL IV Push 1 GM VIAL. IVP ONE (23:00)
[2021-06-08] MEDS ORDERED: VANCOMYCIN 2 GM in IV NORMAL SALINE 500ML BAG 500 ML IV ONE (23:00)
[2021-06-08] MEDS ORDERED: ACETAMINOPHEN 500 MG TABLET PO ONE (23:30)
[2021-06-08] MEDS ORDERED: IOHEXOL 300 MG/ML 100ML VIAL. IV ONE (23:45)
[2021-06-08] MEDS ORDERED: CONTRAST GIVEN. MC PRN (23:45)
[2021-06-08 23:55] LABS: % BANDS 4 % (0-9); % LYMPHS 2 % (24-48); % MONOS 2 % (0-10); % SEGS 92 % (35-66)
[2021-06-08 23:56] LABS: PLT ESTIMATE ADEQUATE (ADEQUATE)
--- NOTE | 2021-06-09 00:33 | RAD ---
CT CHEST+ABD+PELVIS W History: Sepsis. Sacral wound. Technique: CT of the chest, abdomen and pelvis were performed with intravenous contrast. Coronal and sagittal reconstructions were performed. Exposure: One or more of the following individualized dose reduction techniques were utilized for thi s examination: 1. Automated exposure control 2. Adjustment of the mA and/or kV according to patient size 3. Use of iterative reconstruction technique. Comparison: January 12 Findings: Chest: No pathologic lymphadenopathy. Multifocal ground glass opacities bilaterally most prominent wi thin the lower lobes and right middle lobe. No pleural effusion. No pneumothorax. 2 mm left upper lobe pulmonary nodule (series 2 image 20), unchanged. Finding likely benign given sta bility over time. Abdomen and pelvis: Hepatic steatosis. Enlarged liver. The spleen, and adrenal glands are unremarkabl e. Prior cholecystectomy small pneumobilia. No biliary ductal dilatation. Fatty infiltration of the p ancreas, unchanged. Postoperative changes gastric bypass. Left inferior renal nonobstructing calculus. No hydronephrosis. Decompressed urinary bladder with sup rapubic catheter. Postoperative changes within the region of the urethra with hyperdense material. Postoperative changes partial colectomy with right mid abdominal colostomy. Appendix not well seen. N o evidence of bowel obstruction. No pathologic lymphadenopathy. No ascites. Postoperative changes partial sacral resection with bandlike infiltration of the adjacent soft tissue s extending inferiorly and extending to the cutaneous surface and multiple points. There is extension along the posterior aspect of the perirectal region. No subcutaneous gas. No abscess. Additional inf iltration of the left gluteal region. Additional deformity of the right ischial tuberosity. Bones: Mild rightward curvature of the thoracic spine. Impression: Chest CT: 1. Multifocal ground glass opacities bilaterally, may represent infectious or inflammatory process i ncluding viral pneumonia. Abdomen and pelvis CT: 1. Postoperative changes within the region of the sacrum and pelvis with bandlike infiltration of th e posterior gluteal and sacral soft tissues, may relate to scarring or inflammation. No abscess. 2. Nonobstructing left intrarenal calculus. Electronically signed by: Bill Forte DO (06/09/2021 12:30 AM) [facility]
[2021-06-09 00:42] LABS: BILIRUBIN,URINE NEGATIVE (NEG); CLARITY,URINE CLOUDY; COLOR,URINE YELLOW; NITRITE,URINE POSITIVE (NEG); PROTEIN,URINE 30 mg/dL (NEG-TRACE); UROBILINOGEN,URINE 0.2 mg/dL (0.2 mg/dL)
[2021-06-09 00:48] LABS: BACTERIA,URINE MANY /HPF (0-FEW); HYALINE CASTS, URINE FEW /HPF; RBC,URINE OCC /HPF (0-2); WBC,URINE TNTC /HPF (0-4)
[2021-06-09] MEDS ORDERED: IV NORMAL SALINE 1000ML BAG 1,000 ML IV ONE ×2 (01:15→01:45)
[2021-06-09] MEDS ORDERED: ONDANSETRON PF 4 MG/2 ML VIAL. IVP PRN (02:00)
[2021-06-09] MEDS ORDERED: ACETAMINOPHEN 325 MG TABLET. PO PRN (02:00)
[2021-06-09] MEDS: IV NORMAL SALINE 1000ML BAG 1,000 ML IV SCH ×3 (04:51→23:03)
[2021-06-09 05:00] VITALS: BP 134/78
[2021-06-09] MEDS ORDERED: CHOL500021 PO (06:59)
[2021-06-09] MEDS ORDERED: VENTOLIN HFA18 GM INH (06:59)
[2021-06-09] MEDS ORDERED: OXCA600T3 PO (06:59)
[2021-06-09] MEDS ORDERED: GUAI200T3 PO (06:59)
[2021-06-09] MEDS ORDERED: LAMO100T5 PO (06:59)
[2021-06-09 07:00] VITALS: BP 159/85
[2021-06-09] MEDS ORDERED: ALBUTEROL SULFATE 2.5 MG/3 ML NEBU. INH PRN (07:15)
[2021-06-09] MEDS ORDERED: IPRATRPIUM/ALBUTEROL 0.5/2.5MG 3 ML NEBU. NEB PRN (07:15)
[2021-06-09] MEDS ORDERED: NON FORMULARY ITEM (Albuterol Sulfate (Ventolin Hfa Inhaler) 2 PUFF) INH PRN (07:15)
[2021-06-09] MEDS ORDERED: HYDROCORTISONE 1% TOPICAL CREAM 30GM TUBE. TP PRN (07:15)
[2021-06-09] MEDS ORDERED: ONDANSETRON ODT 4 MG TAB.RAPDIS. PO PRN (07:15)
--- NOTE | 2021-06-09 07:28 | NUR ---
Pt. refused to have coccyx/buttocks wounds pictured and changed. She stated that she didn't want to come here in the first place but was on diversion and would not take her. She states that she has an "Excellent" wound care team @ and that she doesn't plan to be here much longer if she could help it. I told her that it was good that she came here b/c her Sepsis could have gotten worse. I explained that her temp has resolved and her lactic acid is better. She stated that if our wound care team saw her today that all they would do is take new pictures and change the dressings and doesn't want it done twice. She said that she could just get d/c today and get IV ABX at the facility she came from.
[2021-06-09] MEDS ORDERED: ACETAMINOPHEN 500 MG TABLET PO ONE (07:30)
[2021-06-09] MEDS ORDERED: ACETAMINOPHEN 325 MG TABLET. PO ONE (07:30)
[2021-06-09] MEDS ORDERED: guaiFENesin ORAL 200 MG/10 ML LIQUID. PO PRN (07:45)
[2021-06-09] MEDS ORDERED: MIDODRINE 5 MG TABLET PO PRN (07:45)
[2021-06-09] MEDS: LEVOTHYROXINE 75 MCG TABLET PO SCH (07:52)
[2021-06-09] MEDS: PANTOPRAZOLE 40 MG TABLET.DR. PO SCH ×2 (07:52→18:18)
[2021-06-09] MEDS: ALBUTEROL SULFATE 2.5 MG/3 ML NEBU. NEB SCH ×2 (08:59→12:03)
[2021-06-09] MEDS: MORPHINE ER 30 MG TABLET.ER PO SCH ×3 (09:00→23:01)
[2021-06-09] MEDS ORDERED: NON FORMULARY ITEM (Fluticasone/Salmeterol (Advair 250-50 Diskus) 1 PUFF) IH SCH (09:00)
[2021-06-09] MEDS: TOPIRAMATE 25 MG TABLET. PO SCH ×2 (09:00→21:26)
[2021-06-09] MEDS: NYSTATIN 100,000 UNIT/GM TOPICAL CREAM 15GM TUBE. TP SCH ×4 (09:00→21:35)
[2021-06-09] MEDS ORDERED: ERGOCALCIFEROL (VITAMIN D2) 50,000 UNIT CAPSULE. PO SCH (09:00)
[2021-06-09] MEDS ORDERED: VITS A & D/LANOLIN TOPICAL OINTMENT 42GM TUBE. TP PRN (09:00)
[2021-06-09] MEDS: OXcarbazepine 300 MG TABLET PO SCH ×3 (09:00→21:00)
[2021-06-09] MEDS: MIRABEGRON 25 MG TAB.ER.24H PO SCH (10:05)
[2021-06-09] MEDS: MULTIVITAMIN with MINERAL TABLET. PO SCH (10:06)
[2021-06-09] MEDS: FERROUS SULFATE 325 MG TABLET. PO SCH (10:06)
[2021-06-09] MEDS: FAMOTIDINE 20 MG TABLET. PO SCH ×2 (10:07→21:32)
[2021-06-09] MEDS: GABAPENTIN 300 MG CAPSULE. PO SCH ×3 (10:07→21:33)
[2021-06-09] MEDS: LACTOBACILLUS RHAMNOSUS GG 1 CAPSULE. PO SCH (10:07)
[2021-06-09] MEDS: FOLIC ACID 1 MG TABLET. PO SCH (10:07)
[2021-06-09] MEDS: ASCORBIC ACID 500 MG TABLET PO SCH ×3 (10:07→21:28)
[2021-06-09] MEDS: OXYBUTYNIN CHLORIDE 5 MG TABLET PO SCH ×3 (10:07→21:33)
[2021-06-09] MEDS: CHOLECALCIFEROL (VITAMIN D3) 1,000 UNIT TABLET PO SCH (10:07)
[2021-06-09 11:00] VITALS: BP 162/79
[2021-06-09] MEDS: SUCRALFATE 1 GM TABLET. PO SCH ×3 (11:00→23:00)
--- NOTE | 2021-06-09 11:30 | NUR ---
SW following. Discussed with RN. SW verified pt is a rn long term care care resident at [facility], room air, regular diet. FLU and COVID-19 negative. Clinicals to be faxed when more available in chart. SW will continue to follow.
[2021-06-09] MEDS: BUDESONIDE 0.5 MG/2 ML NEBU. NEB SCH ×2 (11:58→20:43)
[2021-06-09] MEDS: CEFEPIME HCL IV Push 1 GM VIAL. IVP SCH ×2 (12:03→21:24)
--- NOTE | 2021-06-09 12:07 | HP ---
ADMIT DATE: 06/09/2021 HISTORY OF PRESENT ILLNESS: The patient is a 46-year-old female patient, resident at [facility], who was brought to the Emergency Room with a complaint of headache for the past 2 days, not responding to her triptan medication. The patient has a history of migraine. It has been a couple of years since she has had to be treated in the Emergency Department for them. She says it is on her right congregational and behind her right eye and sometimes radiates to her left congregational. She is complaining of photophobia, but denies any neck stiffness or vision changes. She is stating that this is similar to her previous headaches except that is not going away. She was tested at her facility for COVID-19 with rapid test was negative. She was afebrile on arrival, but reportedly had a temperature of up to 101 when she arrived to the Emergency Room. She was extensively investigated and had lab work and imaging studies. Her lab work showed a white cell count 28,800 with a normal hemoglobin, hematocrit and platelets. Her chemistry was mostly unremarkable, but she does have lactic acidosis. Urinalysis showed there is large amount of leukocyte esterase, occasional rbc's, but too numerous to count wbc's and many bacteria. Her influenza A and B were negative and coronavirus by PCR was negative. Did have a CT scan of the chest showed multifocal ground glass opacities bilaterally, may represent infectious inflammatory process including viral pneumonia. Her abdominal and pelvic CT scan showed postoperative changes in the region of the sacrum and pelvis with band-like infiltration of the posterior gluteal and sacral soft tissue, may relate to scarring or inflammation. No abscess, nonobstructing left intrarenal calculus. The patient was admitted with a diagnosis of migraine headache, catheter-associated urinary tract infection, sepsis, questionable viral pneumonia. We reconciled all her medications and she was started on vancomycin and cefepime. PAST MEDICAL HISTORY: Significant for transverse myelitis with complete paraplegia and neurogenic bladder and bowel. She had a diverting colostomy and suprapubic catheter, gastroesophageal reflux disease without esophagitis, bipolar disorder, anxiety disorder. She also has irritable bowel syndrome without diarrhea, mild cognitive impairment, gait and mobility abnormalities as well as postural abnormalities, chronic pain syndrome, major depressive disorder, posttraumatic stress disorder, borderline personality disorder, migraine headache without status migrainosus. She also had reduced mobility, cellulitis of the left foot with Enterococcus infection, bronchial asthma, uncomplicated; hypo-osmolality and hyponatremia, morbid obesity. Her serum sodium was only 120 mEq per liter when I saw her last week at [facility], and at that time, we recommended fluid restriction and her serum sodium has actually improved to 137, although she also stated that she discontinued Trileptal as it caused also SIADH. PAST SURGICAL HISTORY: Significant for back surgery, colostomy and suprapubic catheter placement. ALLERGIES: SHE IS ALLERGIC TO TRIPTANS, ANTIMIGRAINE AGENTS, DOXYCYCLINE, ELETRIPTAN, HYDROMORPHONE, MEPERIDINE, MORPHINE, NALBUPHINE, RIZATRIPTAN AND TRAMADOL. FAMILY HISTORY: Noncontributory. SOCIAL HISTORY: She is ; however, she is currently a resident at [facility] in [place]. She has three children. She does not smoke, drink alcohol or use recreational drugs. MEDICATIONS: She is currently on the following medication: She is on ipratropium bromide, albuterol sulfate by nebulizer every 6 hours, midodrine 10 mg 3 times a day, albuterol sulfate 2 puffs every 4-6 hours, albuterol sulfate by nebulizer every 6 hours, tizanidine 4 mg at bedtime, ferrous sulfate 325 mg daily. She is on morphine sulfate extended release 30 mg 3 times a day, oxycodone 10 mg every 4 hours as needed. She is on Tylenol 1000 mg every 8 hours, gabapentin 300 mg 3 times a day, lamotrigine 100 mg for Lamictal 100 mg at bedtime, oxcarbazepine 600 mg 3 times a day, topiramate for Topamax 50 mg twice a day. She is on doxepin, she takes 75 mg at bedtime, quetiapine fumarate 300 mg at bedtime, sumatriptan succinate 100 mg 1-2 times a day. She is on Advair Diskus 250/50 one puff twice a day, guaifenesin 600 mg twice a day, Lactobacillus acidophilus 1 capsule once a day, ondansetron 4 mg every 8 hours, famotidine 20 mg twice a day, sucralfate 1 gram 3 times a day, Protonix 40 mg twice a day, levothyroxine sodium 75 mcg once a day, nystatin cream apply topically 4 times a day, petrolatum white/lanolin ointment apply topically twice a day. She is on oxybutynin chloride 5 mg 3 times a day, Myrbetriq 50 mg daily, folic acid 1 mg daily, ascorbic acid 500 mg twice a day, cholecalciferol 50,000 units once a week, multivitamin with mineral 1 tablet once a day. REVIEW OF SYSTEMS: As per history of present illness. PHYSICAL EXAMINATION: GENERAL: On arrival to the Emergency Room, the patient looked well and was clearly in no apparent respiratory distress. There was no pallor, jaundice, cyanosis, or thyromegaly. No jugular venous distention, no edema. VITAL SIGNS: Her heart rate was 124, blood pressure is 121/64, temperature was 101.9, respiratory rate was 16 and oxygen saturation was 97% on room air. HEAD, EYES, EARS, NOSE, AND THROAT: Normocephalic, atraumatic. NECK: Supple. HEART: Showed normal first and second heart sounds, no gallop, rub or murmur. CHEST: Central trachea, equally reduced expansion, reduced air entry. No crepitation or rhonchi. ABDOMEN: Distended, soft with a diverting colostomy and suprapubic catheter in place. NEUROLOGIC: She is awake, alert, responding appropriately. Cranial nerves intact. She moves upper extremities without difficulty. She has paraplegia. She is mostly bedbound, wheelchair bound. LABORATORY DATA: On arrival showed a white cell count 28,800, hemoglobin 13.8, hematocrit 40, MCV 90 and platelet count 345,000 with normal manual differential. Her chemistry showed a serum sodium 136, potassium 4.1, chloride 100, bicarbonate 22, anion gap of 14, BUN 5, creatinine 0.8. Estimated GFR was 76 mL per minute. Her glucose 130, lactic acid was 3.3, calcium was 8.7, phosphorus was 4 and magnesium 2.1. Total bilirubin, AST, ALT, alkaline phosphatase were normal. Total protein 6.9, albumin 3.3 and globulin was 0.9. ASSESSMENT AND PLAN: In summary, this is a 46-year-old female patient who was admitted with recurrent episode of migraine headache. She was also noted to be febrile, has marked leukocytosis and lactic acidosis. Her urinalysis was consistent with urinary tract infection. She is now on IV vancomycin as well as cefepime. I reconciled all her medications and we will wait for the results of culture and sensitivity and decide further management accordingly. ANNELIESE DR: Jon TID: [id number]
[2021-06-09] MEDS: VANCOMYCIN PER PHARMACY MC PRN (12:25)
--- NOTE | 2021-06-09 12:26 | NUR ---
Pharmacy Vancomycin Dosing Note S:Consulted to monitor and dose vancomycin started 06/08/21. O:CAESAR AVALOS is a 46 year old F with UTI . Height: 5 feet, 1 inches Weight: 97.0 kg [place] Body Weight: 47.80 Adjusted Body Weight: 67.48 Dosing Weight: Actual Other Antibiotics: CEFEPIME LABS: Last BUN: 5 Last Creatinine: 0.8 Creatinine Clearance: 93 mL/min Last WBC: 28.8 Last Procalcitonin: Tmax (past 24 hours): Microbiology: I/O: Drug Levels: Last level: on at Last dose given at Vancomycin Dosing: Loading Dose: 2000 mg x1 Dosing Weight: Actual Target Trough: 10-20 A: Based on: HT, WT AND RENAL FXN P: 1. Begin Vancomycin 1500 mg IV q18h 2. Follow up Trough level on 06/10/21 at 1030 3. Pharmacy will continue to monitor, follow and adjust therapy as needed. SEMAJ HECK, [facility], 06/09/21 [id number]
[2021-06-09 15:00] VITALS: BP 166/69
[2021-06-09] MEDS: VANCOMYCIN 1.5 GM in IV NORMAL SALINE 500ML BAG 500 ML IV SCH (18:21)
[2021-06-09 19:00] VITALS: BP 166/55
[2021-06-09] MEDS: DOXEPIN HCL 25 MG CAPSULE. PO SCH (21:25)
[2021-06-09] MEDS: lamoTRIgine 100 MG TABLET. PO SCH (21:26)
[2021-06-09] MEDS: QUEtiapine 100 MG TABLET. PO SCH (21:28)
[2021-06-09] MEDS: tiZANidine 4 MG TABLET. PO SCH (21:32)
[2021-06-09 23:00] VITALS: BP 127/58
[2021-06-10 03:52] VITALS: BP 105/53
[2021-06-10] MEDS: LEVOTHYROXINE 75 MCG TABLET PO SCH (05:56)
[2021-06-10] MEDS: SUCRALFATE 1 GM TABLET. PO SCH ×3 (05:56→22:14)
[2021-06-10] MEDS: PANTOPRAZOLE 40 MG TABLET.DR. PO SCH ×2 (05:56→09:08)
[2021-06-10 07:00] VITALS: BP 105/58
[2021-06-10 07:34] LABS: BASO % 1 % (0-3); EOS # 0.1 x10^3/uL (0.0-0.7); EOS % 1 % (0-3); HEMATOCRIT 33.6 % (36.0-47.0); HEMOGLOBIN 10.8 g/dL (12.0-15.5); LYMPH # 2.2 x10^3/uL (1.0-4.8); LYMPH % 30 % (24-48); MEAN CORPUSCULAR HEMOGLOBIN 30 pg (25-35); MEAN CORPUSCULAR HGB CONC 32 g/dL (31-37); MEAN CORPUSCULAR VOLUME 93 fL (79-100); MONO % 14 % (0-9); NEUT # 4.1 x10^3/uL (1.8-7.7); NEUT % 56 % (31-73); PLATELET COUNT 275 x10^3/uL (140-400); RED BLOOD COUNT 3.62 x10^6/uL (3.50-5.40); RED CELL DISTRIBUTION WIDTH 15.2 % (11.5-14.5); WHITE BLOOD COUNT 7.4 x10^3/uL (4.0-11.0)
[2021-06-10] MEDS: BUDESONIDE 0.5 MG/2 ML NEBU. NEB SCH ×2 (08:50→20:00)
[2021-06-10] MEDS: OXcarbazepine 300 MG TABLET PO SCH ×4 (09:00→21:00)
[2021-06-10] MEDS: MIRABEGRON 25 MG TAB.ER.24H PO SCH (09:07)
[2021-06-10] MEDS: CEFEPIME HCL IV Push 1 GM VIAL. IVP SCH ×2 (09:07→22:08)
[2021-06-10] MEDS: CHOLECALCIFEROL (VITAMIN D3) 1,000 UNIT TABLET PO SCH (09:07)
[2021-06-10] MEDS: MULTIVITAMIN with MINERAL TABLET. PO SCH (09:08)
[2021-06-10] MEDS: LACTOBACILLUS RHAMNOSUS GG 1 CAPSULE. PO SCH (09:08)
[2021-06-10] MEDS: FERROUS SULFATE 325 MG TABLET. PO SCH (09:08)
[2021-06-10] MEDS: FAMOTIDINE 20 MG TABLET. PO SCH ×2 (09:08→22:11)
[2021-06-10] MEDS: OXYBUTYNIN CHLORIDE 5 MG TABLET PO SCH ×3 (09:08→22:11)
[2021-06-10] MEDS: GABAPENTIN 300 MG CAPSULE. PO SCH ×3 (09:09→22:11)
[2021-06-10] MEDS: FOLIC ACID 1 MG TABLET. PO SCH (09:09)
[2021-06-10] MEDS: ASCORBIC ACID 500 MG TABLET PO SCH ×2 (09:09→22:11)
[2021-06-10] MEDS: MORPHINE ER 30 MG TABLET.ER PO SCH ×3 (09:09→22:12)
[2021-06-10] MEDS: NYSTATIN 100,000 UNIT/GM TOPICAL CREAM 15GM TUBE. TP SCH ×4 (09:10→22:14)
[2021-06-10] MEDS: TOPIRAMATE 25 MG TABLET. PO SCH ×2 (09:10→22:21)
[2021-06-10 09:15] LABS: ALBUMIN 2.3 g/dL (3.4-5.0); ALBUMIN/GLOBULIN RATIO 0.8 (1.0-1.7); CREATININE 0.5 mg/dL (0.6-1.0); GFR 132.2; TOTAL BILIRUBIN 0.4 mg/dL (0.2-1.0); TOTAL PROTEIN 5.2 g/dL (6.4-8.2)
[2021-06-10 11:15] VITALS: BP 99/58
[2021-06-10] MEDS: VANCOMYCIN 1.5 GM in IV NORMAL SALINE 500ML BAG 500 ML IV SCH (12:15)
[2021-06-10] MEDS: POTASSIUM CHLORIDE 20 MEQ TABLET.ER. PO SCH ×2 (14:06→22:09)
[2021-06-10 15:00] VITALS: BP 98/52
--- NOTE | 2021-06-10 18:54 | PN ---
DATE: 06/10/2021 SUBJECTIVE: The patient is resting slightly propped up in bed, eating her breakfast comfortably, in no apparent distress. She has had no more nausea, no more headache, feeling generally better, although continued to be weak. PHYSICAL EXAMINATION: GENERAL: When I examined her, she looked well and was clearly in no apparent respiratory distress. She is somewhat pale, but no jaundice, cyanosis or thyromegaly. No jugular venous distention. No lower limb edema. VITAL SIGNS: Her heart rate was 61, blood pressure is 105/58, temperature was 98, respiratory rate was 20 and oxygen saturation was 97%. HEAD, EYES, EARS, NOSE, AND THROAT: Normocephalic, atraumatic. NECK: Supple. HEART: Showed normal first and second heart sounds. No gallop or murmur. CHEST: Clear to auscultation. No crepitation or rhonchi. ABDOMEN: Distended, soft, nontender with a colostomy in the right lower quadrant. Suprapubic catheter in place. NEUROLOGIC: She is awake, alert, responding appropriately. All her cranial nerves intact. She moves all extremities without difficulty. She has paraplegia due to transverse myelitis with neurogenic bladder and bowel. Her intake was 1100, output was 650. LABORATORY DATA: As of this morning, her white cell count is down to 7400; hemoglobin 10; hematocrit 30; MCV 93; and platelet count of 275,000. Her chemistry showed a serum sodium of 144, potassium 3, chloride 111, bicarbonate 23, anion gap of 10, BUN 4, creatinine 0.5. Estimated GFR was 132 mL per minute. Her glucose 110, calcium was 8. Total bilirubin, AST, ALT were normal. Alkaline phosphatase slightly elevated. Total protein 5.2, albumin 2.3. ASSESSMENT: 1. Sepsis with fever. 2. Marked leukocytosis. 3. Lactic acidosis, resolving. 4. Intractable migraine headache, resolved. Her blood and urine cultures so far negative. 5. Hypokalemia. 6. Transverse myelitis. 7. Paraplegia with neurogenic bladder and bowel. PLAN: My plan is to continue with IV antibiotic. I will replenish her potassium and await the result of the blood culture and sensitivity. JEREMIAH/BENY DR: Jon TID: [id number]
[2021-06-10 19:00] VITALS: BP 147/77
[2021-06-10] MEDS: DOXEPIN HCL 25 MG CAPSULE. PO SCH (22:10)
[2021-06-10] MEDS: QUEtiapine 100 MG TABLET. PO SCH (22:10)
[2021-06-10] MEDS: tiZANidine 4 MG TABLET. PO SCH (22:10)
[2021-06-10] MEDS: lamoTRIgine 100 MG TABLET. PO SCH (22:21)
[2021-06-10 23:00] VITALS: BP 116/58
[2021-06-11 03:00] VITALS: BP 104/51
[2021-06-11] MEDS: ACETAMINOPHEN 500 MG TABLET PO PRN ×2 (03:46→16:48)
[2021-06-11] MEDS: oxyCODONE IR 5 MG TABLET PO PRN ×2 (03:47→12:13)
[2021-06-11 05:20] LABS: CREATININE 0.6 mg/dL (0.6-1.0); GFR 107.2; POTASSIUM 4.2 mmol/L (3.5-5.1)
[2021-06-11 05:25] LABS: VANC TR 15.7 mcg/mL (10.0-20.0)
[2021-06-11] MEDS: VANCOMYCIN 1.5 GM in IV NORMAL SALINE 500ML BAG 500 ML IV SCH (05:44)
[2021-06-11] MEDS: SUCRALFATE 1 GM TABLET. PO SCH ×3 (05:45→21:22)
[2021-06-11] MEDS: LEVOTHYROXINE 75 MCG TABLET PO SCH (05:45)
[2021-06-11] MEDS: PANTOPRAZOLE 40 MG TABLET.DR. PO SCH ×2 (06:15→16:48)
[2021-06-11 07:00] VITALS: BP 121/59
[2021-06-11] MEDS: BUDESONIDE 0.5 MG/2 ML NEBU. NEB SCH ×2 (07:20→20:00)
[2021-06-11] MEDS: MIRABEGRON 25 MG TAB.ER.24H PO SCH (08:29)
[2021-06-11] MEDS: CHOLECALCIFEROL (VITAMIN D3) 1,000 UNIT TABLET PO SCH (08:29)
[2021-06-11] MEDS: CEFEPIME HCL IV Push 1 GM VIAL. IVP SCH ×2 (08:29→21:04)
[2021-06-11] MEDS: MORPHINE ER 30 MG TABLET.ER PO SCH ×3 (08:30→21:09)
[2021-06-11] MEDS: OXYBUTYNIN CHLORIDE 5 MG TABLET PO SCH ×3 (08:30→21:06)
[2021-06-11] MEDS: MULTIVITAMIN with MINERAL TABLET. PO SCH (08:30)
[2021-06-11] MEDS: TOPIRAMATE 25 MG TABLET. PO SCH ×2 (08:30→21:06)
[2021-06-11] MEDS: FERROUS SULFATE 325 MG TABLET. PO SCH (08:30)
[2021-06-11] MEDS: ASCORBIC ACID 500 MG TABLET PO SCH ×2 (08:31→21:09)
[2021-06-11] MEDS: LACTOBACILLUS RHAMNOSUS GG 1 CAPSULE. PO SCH (08:31)
[2021-06-11] MEDS: FAMOTIDINE 20 MG TABLET. PO SCH ×2 (08:31→21:09)
[2021-06-11] MEDS: GABAPENTIN 300 MG CAPSULE. PO SCH ×3 (08:31→21:09)
[2021-06-11] MEDS: FOLIC ACID 1 MG TABLET. PO SCH (08:31)
[2021-06-11] MEDS: OXcarbazepine 300 MG TABLET PO SCH ×3 (08:33→21:00)
[2021-06-11] MEDS: NYSTATIN 100,000 UNIT/GM TOPICAL CREAM 15GM TUBE. TP SCH ×4 (08:33→21:12)
[2021-06-11] MEDS: POTASSIUM CHLORIDE 20 MEQ TABLET.ER. PO SCH ×3 (08:33→21:08)
[2021-06-11] MEDS: VANCOMYCIN PER PHARMACY MC PRN (09:05)
--- NOTE | 2021-06-11 09:07 | NUR ---
Pharmacy Vancomycin Dosing Note S:Consulted to monitor and dose vancomycin started 06/08/21. O:CAESAR AVALOS is a 46 year old F with UTI . Height: 5 feet, 1 inches Weight: 102.4 kg [place] Body Weight: 47.80 Adjusted Body Weight: 69.64 Dosing Weight: Actual Other Antibiotics: CEFEPIME LABS: Last BUN: 3 Last Creatinine: 0.8 Creatinine Clearance: 127 mL/min Last WBC: 28.8 Last Procalcitonin: Tmax (past 24 hours): 98.4 Microbiology: Blood cultures - NGTD I/O: 6728/7695 Drug Levels: Last Trough level: 15.7 on 06/11/21 at 0430 Last dose given 06/11/21 at 0544 Vancomycin Dosing: Loading Dose: 2000 mg x1 Dosing Weight: Actual Target Trough: 10-20 A: Based on trough of 15.7: P: 1. Continue Vancomycin 1500 mg IV q18h. 2. Follow up Trough level as needed. 3. Pharmacy will continue to monitor, follow and adjust therapy as needed. Tony Langley [facility], 06/11/21 [id number]
--- NOTE | 2021-06-11 09:33 | PN ---
DATE: 06/11/2021 SUBJECTIVE: The patient is resting, slightly propped up in bed, sleeping comfortably. Upon questioning her, she denied any further episodes of migraine headache. Denied any nausea, vomiting. She has eaten her breakfast and was napping. PHYSICAL EXAMINATION: GENERAL: When I saw her, she looked well and was clearly in no apparent respiratory distress. There was no pallor, jaundice, cyanosis, no lymphadenopathy, no thyromegaly, no jugular venous distention. No lower limb edema. VITAL SIGNS: Her heart rate was 62, blood pressure was 121/69, her temperature was 97.7, respiratory rate was 18 and oxygen saturation was 97%. HEAD, EYES, EARS, NOSE, AND THROAT: Normocephalic, atraumatic. NECK: Supple. HEART: Normal first and second heart sounds, no gallop or murmur. CHEST: Showed central trachea, equal bilateral chest expansion, air entry, vesicular breath sounds. No crepitation or rhonchi. ABDOMEN: Distended, soft with a diverting colostomy as well as suprapubic catheter in place. NEUROLOGIC: She is awake, alert, responding appropriately. All cranial nerves intact. She moves upper extremities without difficulty. She has paraplegia due to transverse myelitis with neurogenic bladder and bowel. LABORATORY DATA: Her intake over the last 24 hours was 640, output was 2050. Her most recent white cell count was 7400, hemoglobin 11, hematocrit 33, MCV 93 and platelet count 275,000. As of this morning, her serum sodium was 146, potassium 4.2, chloride 113, bicarbonate 22, anion gap of 11, BUN 3, creatinine 0.6. Estimated GFR was 107 mL per minute. Her glucose 101 and calcium was 8. ASSESSMENT: In summary, this is a 46-year-old female patient admitted with: 1. Sepsis with fever and marked leukocytosis and lactic acidosis. Her blood cultures are so far negative and urine culture showed multiple organisms. 2. Intractable migraine headache, resolved. 3. Hypokalemia, resolved. 4. Transverse myelitis with paraplegia and neurogenic bladder and bowel. 5. Morbid obesity. PLAN: To discontinue IV vancomycin. Continue with cefepime for now. The patient will be discharged back tomorrow to [facility], [place]. JARED DR: Jon TID: [id number]
[2021-06-11 11:00] VITALS: BP 120/59
[2021-06-11 15:00] VITALS: BP 104/57
[2021-06-11] MEDS: lamoTRIgine 100 MG TABLET. PO SCH (21:05)
[2021-06-11] MEDS: QUEtiapine 100 MG TABLET. PO SCH (21:05)
[2021-06-11] MEDS: DOXEPIN HCL 25 MG CAPSULE. PO SCH (21:05)
[2021-06-11] MEDS: ENOXAPARIN 40 MG/0.4 ML SYRINGE. SQ SCH (21:11)
[2021-06-11] MEDS: tiZANidine 4 MG TABLET. PO SCH (21:11)
[2021-06-11 23:14] VITALS: BP 107/52
[2021-06-12 03:00] VITALS: BP 95/49
[2021-06-12] MEDS: oxyCODONE IR 5 MG TABLET PO PRN (04:12)
[2021-06-12] MEDS: SUCRALFATE 1 GM TABLET. PO SCH ×2 (06:25→15:57)
[2021-06-12 07:00] VITALS: BP 130/71
[2021-06-12] MEDS: BUDESONIDE 0.5 MG/2 ML NEBU. NEB SCH (07:32)
[2021-06-12 08:02] LABS: HEMATOCRIT 33.9 % (36.0-47.0); RED BLOOD COUNT 3.62 x10^6/uL (3.50-5.40); RED CELL DISTRIBUTION WIDTH 15.5 % (11.5-14.5); WHITE BLOOD COUNT 7.1 x10^3/uL (4.0-11.0)
[2021-06-12 08:14] LABS: CALCIUM 8.2 mg/dL (8.5-10.1); CREATININE 0.6 mg/dL (0.6-1.0); GFR 107.2; POTASSIUM 3.6 mmol/L (3.5-5.1)
[2021-06-12] MEDS: CEFEPIME HCL IV Push 1 GM VIAL. IVP SCH (09:00)
[2021-06-12] MEDS: NYSTATIN 100,000 UNIT/GM TOPICAL CREAM 15GM TUBE. TP SCH ×3 (09:00→16:40)
[2021-06-12] MEDS: OXcarbazepine 300 MG TABLET PO SCH ×2 (09:00→11:55)
[2021-06-12] MEDS ORDERED: MORP-16 PO (09:15)
[2021-06-12] MEDS ORDERED: OXYC10TA PO (09:15)
[2021-06-12] MEDS ORDERED: AMOX1TAB61 PO (09:15)
[2021-06-12] MEDS ORDERED: DICL20GE TP (09:15)
--- NOTE | 2021-06-12 09:19 | SNU/HH DC ---
DISCHARGE ORDERS DISCHARGE INFORMATION: DISCHARGE DATE: Jun 12, 2021 FINAL DIAGNOSIS Problems Medical Problems: (1) Catheter-associated urinary tract infection Status: Acute (2) Migraine Status: Acute (3) Sepsis Status: Acute (4) Viral pneumonia Status: Acute CONDITION ON DISCHARGE: Stable CODE STATUS: Code Status: Full [facility]: SNF STAY <30 DAYS: Yes POST DISCHARGE ORDERS: ACTIVITY ORDERS: Activity as tolerated DIET AFTER DISCHARGE: Regular TREATMENT/EQUIPMENT ORDERS: Physical Therapy For: Evalulation/Treatment Occupational Therapy For: Evaluation/Treatment DISCHARGE MEDICATIONS: Home Meds Active Scripts Diclofenac Sodium (Voltaren Arthritis Pain) 20 Gm Gel..gram., 20 GM TP QID for PAIN for 30 Days, EACH Prov:AYAD CARDOZO MD 06/12/21 Amoxicillin/Potassium Clav (AUGMENTIN 875-125 TABLET) 1 Each Tablet, 1 TAB PO BID for UTI for 7 Days, #14 TAB 0 Refills Prov:AYAD CARDOZO MD 06/12/21 Oxycodone Hcl (OXYCODONE HCL IMMED.RELEASE) 10 Mg Tablet, 10 MG PO Q4H PRN for PAIN for 30 Days, #180 TAB 0 Refills Prov:AYAD CARDOZO MD 06/12/21 Morphine Sulfate (MORPHINE SULFATE ER) 30 Mg Tablet.er, 1 TAB PO BID for PAIN for 30 Days, #60 TAB 0 Refills Prov:AYAD CARDOZO MD 06/12/21 Reported Medications Albuterol Sulfate (VENTOLIN HFA INHALER) 18 Gm Hfa.aer.ad, 2 PUFF INH PRN Q6HRS PRN for SHORTNESS OF BREATH, EACH 0 Refills 06/09/21 Lamotrigine (LAMICTAL) 100 Mg Tablet, 100 MG PO HS for ., TAB 06/09/21 Guaifenesin (GUAIFENESIN) 200 Mg Tablet, 600 MG PO PRN Q6HRS PRN for COUGH, TAB 06/09/21 Cholecalciferol (Vitamin D3) (D3-50) 50,000 Unit Capsule, 2000 UNIT PO DAILY for ., CAP 06/09/21 Ascorbic Acid (VITAMIN C) 500 Mg Capsule.er, 500 MG PO BID for supplement, CAP.SR 01/18/21 Acetaminophen (ACETAMINOPHEN) 500 Mg Tablet, 2 TAB PO PRN Q8HRS PRN for pain or fever for 15 Days, #60 TAB 0 Refills 01/18/21 Topiramate (TOPAMAX) 25 Mg Tablet, 2 TAB PO BID for migraine for 30 Days, #120 TAB 0 Refills 01/18/21 Tizanidine Hcl (TIZANIDINE HCL) 4 Mg Tablet, 1 TAB PO QHS for muscle relaxer, #30 TAB 01/18/21 Multivit,Ther Iron,Ca,Fa & Min (THERA-M CAPLET) 1 Each Tablet, 1 TAB PO DAILY for supplement for 30 Days, #30 TAB 0 Refills 01/18/21 Sucralfate (SUCRALFATE) 1 Gm Tablet, 1 TAB PO TID for gastric protection, #90 TAB 11 Refills 01/18/21 Quetiapine Fumarate (SEROQUEL) 300 Mg Tablet, 1 TAB PO QHS for bipolar, #30 TAB 1 Refill 01/18/21 Albuterol Sulfate (PROAIR HFA INHALER) 8.5 Gm Hfa.aer.ad, 2 PUFF IH PRN Q4-6HRS PRN for wheezing for 21 Days, #1 INHALER 0 Refills 01/18/21 Pantoprazole Sodium (PANTOPRAZOLE SODIUM ) 40 Mg Tablet.dr, 40 MG PO BID for GERD, TAB 01/18/21 Oxybutynin Chloride (OXYBUTYNIN CHLORIDE) 5 Mg Tablet, 5 MG PO TID for over active bladder, TAB 01/18/21 Ondansetron (ONDANSETRON ODT) 4 Mg Tab.rapdis, 1 TAB PO PRN Q8HRS for nausea, #16 TAB 01/18/21 Nystatin (NYSTATIN) 15 Gm Cream..g., 1 CELY TP QID for skin integrity, #30 GM 01/18/21 Mirabegron (MYRBETRIQ) 50 Mg Tab.er.24h, 50 MG PO DAILY for OVERACTIVE BLADDER, TAB.SR 01/18/21 Midodrine Hcl (MIDODRINE HCL) 10 Mg Tablet, 10 MG PO PRN TID PRN for hypotension, TAB 01/18/21 Levothyroxine Sodium (LEVOTHYROXINE SODIUM) 75 Mcg Tablet, 0.5 TAB PO DAILY for hypothroid, #30 TAB 5 Refills 01/18/21 Lactobacillus Acidophilus (PROBIOTIC) 1 Each Capsule, 1 CAP PO DAILY for probiotic for 10 Days, #10 CAP 0 Refills 01/18/21 Ipratropium/Albuterol Sulfate (DUONEB 0.5-3(2.5) MG/3 ML) 3 Ml Ampul.neb, 3 ML NEB PRN Q6HRS PRN for SHORTNESS OF BREATH, EACH 01/18/21 Sumatriptan Succinate (IMITREX) 100 Mg Tablet, 100 MG PO 1-2XD PRN for MIGRAINE HEADACHE, TAB 01/18/21 Hydrocortisone (HYDROCORTISONE) 453.6 Gm Cream..g., 1 CELY TP PRN Q6HRS PRN for ITCHING, #15 EACH 01/18/21 Gabapentin (GABAPENTIN) 600 Mg Tablet, 300 MG PO TID for NEUROGENIC PAIN, TAB 01/18/21 Petrolatum,White/Lanolin (VITAMIN A & D OINTMENT) 113 Gm Oint...g., 113 GM TP BID for scabs on toe, MISC 01/18/21 Famotidine (FAMOTIDINE) 20 Mg Tablet, 20 MG PO BID for GERD, TAB 10/08/18 Folic Acid (FOLIC ACID) 1 Mg Tablet, 1 TAB PO DAILY for SUPPLEMENT, #90 TAB 1 Refill 10/08/18 Fluticasone/Salmeterol (ADVAIR 250-50 DISKUS) 1 Each Disk.w.dev, 1 PUFF IH BID for ASTHMA, #3 INHALER 3 Refills 10/08/18 Ferrous Sulfate (FERROUS SULFATE) 325 Mg Tablet, 1 TAB PO DAILY for ANEMIA, #30 TAB 3 Refills 10/08/18 Doxepin Hcl (DOXEPIN HCL) 50 Mg Capsule, 75 MG PO HS for SLEEP, CAP 10/08/18 Ergocalciferol (Vitamin D2) (VITAMIN D2) 50,000 Unit Capsule, 1 CAP PO WEEKLY for VITAMIN D REPLACEMENT, #4 CAP 5 Refills 10/08/18 Discontinued Reported Medications Oxcarbazepine (TRILEPTAL) 600 Mg Tablet, 600 MG PO TID for ., TAB 06/09/21 Oxycodone Hcl (OXYCODONE HCL IMMED.RELEASE) 10 Mg Tablet, 10 MG PO PRN Q4HRS for pain, TAB 0 Refills 01/18/21 Morphine Sulfate Er (MS CONTIN) 30 Mg Tablet.er, 1 TAB PO TID for pain MDD 3 Tablet(s) for 5 Days, #15 TAB 0 Refills 01/18/21 Terazosin Hcl (TERAZOSIN HCL) 2 Mg Capsule, 1 CAP PO QHS for HYPERTENSION, #90 CAP 1 Refill 10/08/18 Ampicillin Sodium/Sulbactam Na (UNASYN 3 GM VIAL) 3 Gm Vial, 3 GM IJ Q8HRS for ANTIBIOTIC, EACH 10/08/18 AYAD CARDOZO MD Jun 12, 2021 09:19
--- NOTE | 2021-06-12 10:51 | NUR ---
SW following. Discussed with RN, discharge order for pt to return to [facility]. SW faxed discharge order. Transportation arranged by [facility] for [phone]. RN notified.
[2021-06-12 11:00] VITALS: BP 135/80
[2021-06-12] MEDS: ENOXAPARIN 40 MG/0.4 ML SYRINGE. SQ SCH (11:45)
[2021-06-12] MEDS: FOLIC ACID 1 MG TABLET. PO SCH (11:46)
[2021-06-12] MEDS: POTASSIUM CHLORIDE 20 MEQ TABLET.ER. PO SCH (11:46)
[2021-06-12] MEDS: GABAPENTIN 300 MG CAPSULE. PO SCH ×2 (11:46→15:57)
[2021-06-12] MEDS: MULTIVITAMIN with MINERAL TABLET. PO SCH (11:47)
[2021-06-12] MEDS: PANTOPRAZOLE 40 MG TABLET.DR. PO SCH ×2 (11:47→15:57)
[2021-06-12] MEDS: FERROUS SULFATE 325 MG TABLET. PO SCH (11:48)
[2021-06-12] MEDS: TOPIRAMATE 25 MG TABLET. PO SCH (11:48)
[2021-06-12] MEDS: MORPHINE ER 30 MG TABLET.ER PO SCH ×2 (11:49→15:58)
[2021-06-12] MEDS: ASCORBIC ACID 500 MG TABLET PO SCH (11:49)
[2021-06-12] MEDS: CHOLECALCIFEROL (VITAMIN D3) 1,000 UNIT TABLET PO SCH (11:50)
[2021-06-12] MEDS: LACTOBACILLUS RHAMNOSUS GG 1 CAPSULE. PO SCH (11:50)
[2021-06-12] MEDS: MIRABEGRON 25 MG TAB.ER.24H PO SCH (11:50)
[2021-06-12] MEDS: OXYBUTYNIN CHLORIDE 5 MG TABLET PO SCH ×2 (11:52→16:00)
[2021-06-12] MEDS: LEVOTHYROXINE 75 MCG TABLET PO SCH (11:53)
[2021-06-12] MEDS: FAMOTIDINE 20 MG TABLET. PO SCH (12:07)
[2021-06-12 15:00] VITALS: BP 148/79
[2021-06-12] MEDS: ACETAMINOPHEN 500 MG TABLET PO PRN (15:59)
--- NOTE | 2021-06-12 16:44 | NUR ---
Patient has refused observation, pictures, measurements by nurse today. Have given pt rational for doing so, but was adamant that "It's not going to happen". Otherwise, patient has appeared to be in good spirits, talkative. Report has been given to facility, nurse Traci informed that wounds not able to be observed today, and has not allowed pics and measurements.
--- NOTE | 2021-06-12 18:20 | NUR ---
Patient discharged for transfer back to [facility]. Pt confirmed she had belongings that she brought with her, including her purse and cell phone. Pt was sent per stretcher. Did note that foam dressings were in place over her wounds.
[2021-06-12] MEDS ORDERED: AMOXICILLIN/K CLAV 875/125MG TABLET. PO SCH (21:00)
== END 2021-06-12 18:00 | disposition home or self-care (01) | DRG 698 ==
LOC: ER 19:46 → 5 SOUTH 06-09 01:00
PROVIDERS: ADMIT Internal Medicine; ATTEND Internal Medicine
DX: T83.518A Infection and inflammatory reaction due to other urinary catheter, initial encounter (principal); A41.9 Sepsis, unspecified organism; J12.9 Viral pneumonia, unspecified; N39.0 Urinary tract infection, site not specified; E87.2 Acidosis; G37.3 Acute transverse myelitis in demyelinating disease of central nervous system; G82.21 Paraplegia, complete; K59.2 Neurogenic bowel, not elsewhere classified; E66.01 Morbid (severe) obesity due to excess calories; E87.6 Hypokalemia; F31.9 Bipolar disorder, unspecified; F43.10 Post-traumatic stress disorder, unspecified; G43.919 Migraine, unspecified, intractable, without status migrainosus; J45.909 Unspecified asthma, uncomplicated; N20.0 Calculus of kidney; N31.9 Neuromuscular dysfunction of bladder, unspecified; Y84.6 Urinary catheterization as the cause of abnormal reaction of the patient, or of later complication, without mention of misadventure at the time of the procedure; Z93.3 Colostomy status; F41.9 Anxiety disorder, unspecified; K21.9 Gastro-esophageal reflux disease without esophagitis
CPT/HCPCS: 36415; 71260; 74177; 80048; 80053; 80202; 81001; 83605; 83735; 84100; 85007; 85025; 85027; 87040; 87086; 87426; 87804; 94640; 94760; 96361; 96365; 96375; J0692; J0780; J1200; J1650; J1885; J2405; J3370; J7030; J7040; Q9967; U0003; U0005; 99285-25; G0378; J7626